=== PATIENT | female | born 1985 | race Caucasian/White ===

== ENCOUNTER 2022-11-14 14:31 | Emergency (ER) | payer OTHER, SELFPAY ==
[2022-11-14 14:58] VITALS: BP 139/69; PULSE 88; RESP 16; TEMP 37.2; O2SAT 97
--- NOTE | 2022-11-14 15:02 | PC.NURSE ---
While entering pt's home medications, RN noted that she had a Px for zithromax, filled at [facility] today. Pt checked on her phone and this is accurate. It appears pt's PCP called in Px, but did not notify pt. Pt decided not to stay since she has a Px waiting for her at the pharmacy. Pt was not seen by CHIEF [employer]ATEGY OFFICER.
== END 2022-11-14 15:06 | disposition left against medical advice (07) ==
LOC: EXPBETH 14:35
PROVIDERS: Emergency Provider Nurse Practitioner
DX: Z53.21 Procedure and treatment not carried out due to patient leaving prior to being seen by health care provider (principal)
CPT/HCPCS: 99199

== ENCOUNTER 2024-06-12 16:24 | Emergency (ER) | payer OTHER, SELFPAY ==
[2024-06-12 16:28] VITALS: BP 135/72; PULSE 82; RESP 18; TEMP 36.3; O2SAT 100
--- NOTE | 2024-06-12 17:35 | ED.GENADULT ---
HPI - General Adult General Chief complaint: Skin/Abscess/Foreign Body Stated complaint: Rash Source: patient Mode of arrival: ambulatory Limitations: no limitations History of Present Illness HPI narrative: Patient presents for evaluation of a pruritic rash to the fingers of both hands for the last week. She started using a new hand lotion prior to the time of symptom onset. She has since stopped using it and itching persists. She tried using hydrocortisone without considerable improvement thereafter. Denies any difficulty breathing or swallowing. Related Data Home Medications Medication Instructions Recorded Confirmed aripiprazole 2 mg tablet 2 mg HS 11/14/22 11/14/22 buspirone 5 mg tablet 5 mg TID 11/14/22 11/14/22 escitalopram oxalate 10 mg tablet 10 mg DAILY 11/14/22 11/14/22 venlafaxine 37.5 mg 37.5 mg PO DAILY 11/14/22 11/14/22 capsule,extended release 24 hr Allergies Allergy/AdvReac Type Severity Reaction Status Date / Time Penicillins Allergy Hives Verified 11/14/22 14:52 Review of Systems Review of Systems: CONSTITUTIONAL: Denies fever, chills, or sweats. EYES: Denies visual changes, redness, or discharge. ENT: Denies rhinorrhea, congestion, sore throat, or otalgia. CARDIOVASCULAR: Denies chest pain, palpitations, or edema. RESPIRATORY: Denies cough or dyspnea. GASTROINTESTINAL: Denies abdominal pain, nausea, vomiting, or diarrhea. GENITOURINARY: Denies dysuria or hematuria. SKIN: Reports pruritic rash to fingers of both hands. MUSCULOSKELETAL: Denies back pain, joint pain, or myalgia. NEUROLOGIC: Denies headache, numbness, dizziness, or weakness. PSYCHIATRIC: Denies anxiety or depression. FOR[facility]LY [facility], [facility] Past Medical History Medical History Anxiety Depression Surgical History Surgical History H/O tubal ligation Family History Family History Mother Family history non-contributory Social History Social History (Updated 06/12/24 @ 17:38 by UBALDO Early, ) Smoking packs per day: 0.5 Smoking cigarettes per day: 10.0 Smoking status: Current every day smoker Tobacco type: cigarettes Substance use: never Gender identity (if verbalized by the patient): Female Spiritual care concerns: No Exam Narrative: GENERAL: Well-appearing, well-nourished, and in no acute distress. HEAD: Normocephalic, atraumatic. EYES: PERRLA and EOMI. ENT: Nares clear, no rhinorrhea or epistaxis. Mucous membranes moist. Oropharynx without tonsillar hypertrophy exudate or other lesions. Bilateral TMs pearly lopse nonbulging NECK: Supple. No adenopathy or masses. No carotid bruits or JVD CHEST: Clear to auscultation. No respiratory distress. No wheezes rales or rhonchi HEART: Regular rate and rhythm. No murmur heard. Normal peripheral pulses. ABDOMEN: Soft, nontender, nondistended, normal active bowel sounds. EXTREMITIES: Normal range of motion. No edema. SKIN: There are several raised blister-like lesions which are about 2mm in size to the medial and lateral aspects of digits on both hands NEURO: No focal deficits. Alert and oriented x3. PSYCH: Normal mood and affect. Course Course Emergency Course: This is a 39-year-old female who presented for evaluation of a pruritic rash to the fingers of both hands. This seems to be related to her new hand lotion. She has since stopped. Through shared decision making opted to proceed with oral steroids as topicals have provided her with much relief. With that said she was using a lower potency steroid then I would prescribe. She will begin medrol dose santa and can use kenalog in the event that symptoms persist. I did advise her that other things can cause a pruritic rash to the hands. I have low clinical suspicion that this is syphilis, but did advise that she follow-up
== END 2024-06-12 17:34 | disposition home or self-care (01) ==
PROVIDERS: Emergency Provider Nurse Practitioner; PCP Family Medicine
DX: L30.9 Dermatitis, unspecified (principal); F17.210 Nicotine dependence, cigarettes, uncomplicated; F41.9 Anxiety disorder, unspecified; F32.A Depression, unspecified
CPT/HCPCS: 99213; G0463

== ENCOUNTER 2025-02-13 11:13 | Emergency (ER) | payer OTHER, SELFPAY ==
[2025-02-13 11:17] VITALS: BP 140/78; PULSE 77; RESP 16; TEMP 36.7; O2SAT 100
--- NOTE | 2025-02-13 11:20 | ED.SKABFB ---
HPI - Skin/Abscess/Foreign Bdy General Chief complaint: Skin/Abscess/Foreign Body Stated complaint: broke out in hives Time Seen by Provider: 02/13/25 11:24 Source: patient, RN notes reviewed and old records reviewed Mode of arrival: ambulatory Limitations: no limitations History of Present Illness HPI narrative: 39 year old female presents to [facility] care with complaints of having red itching spots to her arms, stomach, top of her legs, and also on her neck which started on Thursday. Patient reports that she has been taking Benadryl every 4 hours for the itching and patient has some noted scab areas on forearms from itching. Patient reports no new foods, medications, laundry products. 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 Patient reports no difficulty with her breathing or with swallowing. MD complaint: rash Onset (ago): day(s) (4 days) Location: generalized Severity: moderate Treatments prior to arrival: Benadryl Related Data Allergies Allergy/AdvReac Type Severity Reaction Status Date / Time Penicillins Allergy Hives Verified 02/13/25 11:20 Review of Systems Review of Systems: CONSTITUTIONAL: Denies fever, chills, or sweats. CARDIOVASCULAR: Denies chest pain, palpitations, or edema. RESPIRATORY: Denies cough or dyspnea. SKIN: Reports small red raised itchy rash on her arms, stomach tops of thighs, and neck which started on Thursday with no changes in breathing or any difficulty with swallowing noted. MUSCULOSKELETAL: Denies joint pain or myalgia. NEUROLOGIC: Denies headache, numbness, or weakness. All systems reviewed & are unremarkable except as noted in HPI and below PMFSH Past Medical History Medical History Depression Anxiety Surgical History Surgical History H/O tubal ligation Family History Family History Mother Family history non-contributory Social History Social History (Updated 02/14/25 @ 19:36 by Pam Pimentel NP) Smoking packs per day: 1.5 Smoking cigarettes per day: 30.0 Smoking status: Current every day smoker Tobacco type: cigarettes Alcohol intake: never Substance use: never Gender identity (if verbalized by the patient): Female Spiritual care concerns: No Comments At time of signature, agree with nursing past medical, surgical, social and family history. There is no relevant family history pertinent to the presenting complaint Exam Narrative: GENERAL: Well-appearing, well-nourished, and in no acute distress. HEAD: Normocephalic, atraumatic. EYES: PERRLA, conjunctivae clear, and EOMI. ENT: Mucous membranes moist. Oropharynx without edema, erythema or lesions. NECK: Supple. No lymphadenopathy CHEST: Clear to auscultation. No respiratory distress. no cough not SAO2 100% on room air HEART: Regular rate and rhythm. SKIN: Warm, dry.? Patches of small red raised rash noted on forearms, abdomen, tops of thighs and on neck which is itchy, some scabs noted on forearms, no pustule or vesicle formation. NEURO:? Alert and oriented x3. PSYCH: Normal mood and affect Course Course Emergency Course: Patient is aware of diagnosis, understands and agrees to treatment plan.? Anticipatory guidance given.? Patient agrees to follow-up as directed and is aware of reasons to seek care at the emergency department. Portions of this record may have been created with voice recognition software Level of Care: Express Care Visit Vital Signs Vital signs: Vital Signs Temperature 36.7 C 02/13/25 11:17 Pulse Rate 77 02/13/25 11:17 Respiratory Rate 16 02/13/25 11:17 Blood Pressure 140/78 02/13/25 11:17 Pulse Oximetry 100 02/13/25 11:17 Oxygen Delivery Room Air 02/13/25 11:17 Temperature 36.7 C 02/13/25 11:17 Pulse Rate 77 02/13/25 11:17 Respiratory Rate 16 02/13/25 11:17 Blood Pressure 140/78 02/13/25 11:17 Pulse Oximetry 100 02/13/25 11:17 Oxygen Delivery Room Air 02/13/25 11:17 Reviewed MDM - Skin/Abscess/Foreign Bdy MDM Narrative Medical decision making narrative: Does not appear at this time to be erythema multiforme, bullous, SJS, TEN; no evidence at this time to suggest RMSF, endocarditis or Lyme disease; patient looks well, nontoxic and is tolerating oral intake; no neurologic signs or symptoms; no headache, photophobia or neck pain; afebrile; appropriate for initial outpatient treatment; discussed the importance of follow-up, patient agrees; question, viral exanthema, contact dermatitis, allergic dermatitis, eczema, urticaria. No soft palate or uvula edema, no tongue, lip edema or other mucosal involvement, no respiratory compromise, no stridor, no wheezing, no wheezing, no history of syncope, no hypotension, no nausea, vomiting, or diarrhea.? Instructed patient to go to nearest ER immediately for any worsening symptoms including but not limited to: fever, spreading rash, pain, sore throat, headache, dizziness, chest pain, trouble breathing, or any symptoms concerning to the patient. Differential Diagnosis Differential diagnosis: Likely urticaria, cellulitis, eczema, contact dermatitis and other (pruritic rash) Medical Records Attestation: I reviewed the patient's medical records. Critical Care Time Critical Care Time Critical Care Time: No Discharge Plan Discharge Clinical Impression: Contact dermatitis Qualifiers: Contact dermatitis type: unspecified Contact dermatitis trigger: unspecified trigger Qualified Code(s): L25.9 - Unspecified contact dermatitis, unspecified cause Patient Disposition: Home, Self-Care Condition: Stable Instructions: Antibiotic Form, Contact Dermatitis (ED) Additional Instructions: Apply triamcinolone ointment to rash, never use this on the face watch for any infection--redness, swelling, drainage Tylenol or Ibuprofen for any fever or pain Patient to take daily Zyrtec daily for 10 days, Patient to take Pepcid daily for 10 days follow up with PCP in 7-10 days for a wound check recheck if develop fever, chills, increasing symptom Go to the ER if your symptoms become worse of if ANY new symptoms develop Prednisone taper take as prescribed Benadryl every 6 hours for itching If your symptoms persist, change or worsen significantly before you can contact your personal physician then please, without delay, go to the emergency department for further evaluation. Follow-up with PCP in 7-10 days or sooner if needed Follow up with PCP soon in regards to your blood pressure which is elevated above threshold for referral. Blood pressure above 120/80 may indicate pre-hypertension. 140/78 Patient Language: Estonian Prescriptions: New prednisone 10 mg tablet 10 mg PO DIRECTED Qty: 21 0RF Rx Instructions: see taper instructions 6 tabs day 1, 5 tabs day 2, 4 tabs day 3, 3 tabs day 4, 2 tabs day 5, 1 tab day 6 famotidine [Pepcid] 20 mg tablet 20 mg PO DAILY Qty: 10 0RF Follow-up/Referrals: PHYSICIAN NOT ON STAFF,NONSTAFF [Primary Care Provider] - Time of Disposition: 11:41 Quality [place] Coma Scale Eyes: Open Verbal: Oriented and Alert Motor: Follows Commands [place] Coma Total Score: 15
--- OUTSIDE RECORDS SUMMARY | 2025-02-13 13:18 | XMS_ITS | Referral Summary ---
Author Organization [facility] Address [address] [place] [address] Care Team Providers Care Gizzard Peeler Name Role Phone Antony Jean-Baptiste MD Primary Care Provider Encounters Date Type Department Care Team Description 01/05/2025 12:54 AM TECHNICAL WRITING LEAD/MGR - 01/05/2025 4:58 AM TECHNICAL WRITING LEAD/MGR Emergency [facility] Emergency Department [address] [place] [address] Letha Templeton MD Acute bilateral thoracic back pain (Primary Dx) Discharge Disposition: Discharge to home or self care from Last 3 Months Allergies Active Allergy Reactions Criticality Noted Date Comments Latex Rash Medium 01/05/2025 Reaction: Rash, Penicillins Rash,Hives,Shortness of breath High 12/27/2009 Reaction: Rash, Medications traMADoL (ULTRAM) 50 mg tablet Take 1 tablet (50 mg total) by mouth every 4 (four) hours as needed for pain 20 tablet 10/15/2022 Active ibuprofen (ADVIL,MOTRIN) 600 mg tablet Take 1 tablet (600 mg total) by mouth every 6 (six) hours as needed for pain for up to 30 doses 30 tablet 01/05/2025 Active HYDROcodone-acet aminophen (NORCO) 5-325 mg per tabletIndication s:Pain Take 1 tablet by mouth every 6 (six) hours as needed for pain for up to 10 doses 10 tablet 01/05/2025 Active cyclobenzaprine (FLEXERIL) 10 mg tablet Take 1 tablet (10 mg total) by mouth 2 (two) times a day as needed for muscle spasms 20 tablet 01/05/2025 Active Active Problems Problem Noted Date Diagnosed Date Methamphetamine abuse 03/07/2019 Overview (10/15/2022): Note: Clean 02/01/2019. 5 years of snorting and smoking. Adjustment disorder with anxiety 10/06/2017 Overview (10/15/2022): Note: Unchanged High-risk 06/24/2012 Immunizations Immunization Administration Dates Next Due Tdap 2024 Social History Tobacco Use Types Packs/Day Years Used Date Smoking Tobacco: Never Assessed Personal Safety Answer Date Recorded Have you ever been in or are you currently in a harmful physical or emotional relationship or is someone making you feel afraid or unsafe? Denies 01/05/2025 Comments No Sex and Gender Information Value Date Recorded Sex Assigned at Not on file Legal Sex Female 6:06 PM TECHNICAL WRITING LEAD/MGR Gender Identity Not on file Sexual Orientation Not on file Last Filed Vital Signs Vital Sign Reading Time Taken Comments Blood Pressure 114/74 01/05/2025 4:45 AM TECHNICAL WRITING LEAD/MGR Pulse 65 01/05/2025 3:25 AM TECHNICAL WRITING LEAD/MGR Temperature 37.1 C (98.8 F) 01/05/2025 12:52 AM TECHNICAL WRITING LEAD/MGR Respiratory Rate 18 01/05/2025 12:52 AM TECHNICAL WRITING LEAD/MGR Oxygen Saturation 95% 01/05/2025 3:25 AM TECHNICAL WRITING LEAD/MGR Inhaled Oxygen Concentration - - Weight 81.6 kg (180 lb) 01/05/2025 12:49 AM TECHNICAL WRITING LEAD/MGR Height 158.8 cm (5' 2.5 ) 01/05/2025 12:49 AM CS T Body Mass Index 32.4 01/05/2025 12:49 AM TECHNICAL WRITING LEAD/MGR Plan of Treatment Not on file Procedures Procedure Name Priority Date/Time Associated Diagnosis Comments CT ABDOMEN PELVIS WO CONTRAST ED 01/05/2025 3:34 AM TECHNICAL WRITING LEAD/MGR EGFR STAT 01/05/2025 2:26 AM TECHNICAL WRITING LEAD/MGR DIFFERENTIAL AUTO STAT 01/05/2025 2:2 6 AM TECHNICAL WRITING LEAD/MGR HCG, BLOOD, QUANTITATIVE STAT 01/05/2025 2:26 AM TECHNICAL WRITING LEAD/MGR COMPREHENSIVE METABOLIC PANEL STAT 01/05/2025 2:26 AM TECHNICAL WRITING LEAD/MGR CBC WITH AUTO DIFFERENTIAL STAT 01/05/2025 2:26 AM TECHNICAL WRITING LEAD/MGR URINALYSIS AND REFLEX TO MICROSCOPIC AND CULTURE STAT 01/05/2025 2:26 AM TECHNICAL WRITING LEAD/MGR from Last 3 Months Results * CT Abdomen Pelvis WO Contrast (01/05/2025 3:34 AM TECHNICAL WRITING LEAD/MGR) Anatomical Region Laterality Modality Body N/A Computed Tomogra phy 01/05/2025 3:38 AM TECHNICAL WRITING LEAD/MGR Narrative 01/05/2025 3:42 AM TECHNICAL WRITING LEAD/MGR EXAM DESCRIPTION: CT ABDOMEN PELVIS WO CONTRAST REASON FOR STUDY: Abdominal/flank pain, stone suspected Patient presents with bilateral flank pain radiating to abdomen x 2 weeks. Denies urinary symptoms. TECHNIQUE: CT scan of the abdomen and pelvis performed without intravenous and without oral contrast using helical scanning technique. Reconstructed coronal and sagittal MPR images reviewed. All images stored on PACS. Automated exposure control was used as a dose optimization technique for this examination. COMPARISON: None FINDINGS: LOWER CHEST: Lung bases are clear. Heart size normal. No effusion. LIVER/BILIARY: Liver unremarkable. Biliary tree normal in caliber. GALLBLADDER: Normal. SPLEEN: Normal. PANCREAS: Mild atrophy. ADRENAL GLANDS: Normal. KIDNEYS/URINARY TRACT: Unremarkable. GI: Stomach and small bowel appear normal. Scattered noninflamed colonic diverticula. Normal appendix. OTHER ABDOMINAL/PELVIS: Major vascular structures are normal in caliber. No enlarged lymph node or free fluid. MSK: None. BODY WALL: Normal. IMPRESSION: No urinary tract obstruction/inflammation or other acute abnormality identified. THIS IS AN ELECTRONICALLY VERIFIED FINAL REPORT 01/05/2025 3:42 AM - Electronically signed by John Arciniega M.D. AR: NATE Report ID: [id number] Reading Location: [id number] Procedure Note John Arciniega MD - 01/05/2025 EXAM DESCRIPTION: CT ABDOMEN PELVIS WO CONTRAST REASON FOR STUDY: Abdominal/flank pain, stone suspected Patient presents with bilateral flank pain radiating to abdomen x 2 weeks. Denies urinary symptoms. TECHNIQUE: CT scan of the abdomen and pelvis performed without intravenousand without oral contrast using helical scanning technique. Reconstructed coronal and sagittal MPR images reviewed. All images stored on PACS.Automated exposure control was used as a dose optimization technique for this examination. COMPARISON: None FINDINGS: LOWER CHEST: Lung bases are clear. Heart size normal. No effusion. LIVER/BILIARY: Liver unremarkable. Biliary tree normal in caliber. GALLBLADDER: Normal. SPLEEN: Normal. PANCREAS: Mild atrophy. ADRENAL GLANDS: Normal. KIDNEYS/URINARY TRACT: Unremarkable. GI: Stomach and small bowel appear normal. Scattered noninflamed colonic diverticula. Normal appendix. OTHER ABDOMINAL/PELVIS: Major vascular structures are normal in caliber.No enlarged lymph node or free fluid. MSK: None. BODY WALL: Normal. IMPRESSION: No urinary tract obstruction/inflammation or other acute abnormality identified. THIS IS AN ELECTRONICALLY VERIFIED FINAL REPORT 01/05/2025 3:42 AM - Electronically signed by John Arciniega M.D. AR: AR Report ID: [id number] Reading Location: [place] [address] Letha Templeton MD IM CT PROCEDURES Final R esult * eGFR (01/05/2025 2:26 AM TECHNICAL WRITING LEAD/MGR) eGFR >90 >=60 mL/min/1. 73 m2 Comment: Interpretive Data Reference Interval Normal >/= 90 mL/min/1.73m2 Mildly decreased* 60 - 89 mL/min/1.73m2 Mildly to moderately decreased 45 - 59 mL/min/1.73m2 Moderately to severely decreased 30 - 44 mL/min/1.73m2 Severely decreased 15 - 29 mL/min/1.73m2 Kidney Failure < 15 mL/min/1.73m2 *Relative to young adult level Estimated glomerular filtration rate is determined by the 2020 CKD-EPI equation recommended by the National Kid[employer] (A Unifying Approach to GFR Estimation: Recommendations of the NKF-ASK Task Force on Reassessing the Inclusion of Race in Diagnosing Kidney Disease, JASN 2020). The CKD-EPI equation should not be used for patients with unstable renal function and has not been validated in children and those over 70. Current interpretive data was last reviewed 2021. Blood 01/05/2025 2:26 AM TECHNICAL WRITING LEAD/MGR 01/05/2025 2:58 AM TECHNICAL WRITING LEAD/MGR us Letha Templeton MD LAB BLOOD ORDERABLES Korin marlene Result [facility] ([facility]) 1 [facility] Department [place] [address] * Differential, auto (01/05/2025 2:26 AM TECHNICAL WRITING LEAD/MGR) Neutrophil abs 4.2 1.5 - 6.5 K/cumm Imm gran abs 0.0 0.0 - 0.1 K/cumm [facility] ([place]) Lymphocyte abs 2.4 0.8 - 3.3 K/cumm [facility] ([place]) Monocyte abs 0.5 0.2 - 0.8 K/cumm [facility] ([place]) Eosinophil abs 0.3 0.0 - 0.5 K/cumm [facility] ([place]) Basophil abs 0.1 0.0 - 0.1 K/cumm [facility] ([place]) Neutrophil pct 55.5 % [facility] ([place]) Comment: Interpretive Data Percent cell count reference ranges are not reported, since discordance with absolute values may lead to misinterpretation of CBC data. Current Interpretive Data was last revised on 2018. Imm gran pct 0.4 % [facility] ([place]) Comment: Interpretive Data Percent cell count reference ranges are not reported, since discordance with absolute values may lead to misinterpretation of CBC data. Current Interpretive Data was last revised on 2018. Lymphocyte pct 32.6 % [facility] ([place]) Comment: Interpretive Data Percent cell count reference ranges are not reported, since discordance with absolute values may lead to misinterpretation of CBC data. Current Interpretive Data was last revised on 2018. Monocyte pct 6.3 % [facility] ([place]) Comment: Interpretive Data Percent cell count reference ranges are not reported, since discordance with absolute values may lead to misinterpretation of CBC data. Current Interpretive Data was last revised on 2018. Eosinophil pct 4.5 % [facility] ([place]) Comment: Interpretive Data Percent cell count reference ranges are not reported, since discordance with absolute values may lead to misinterpretation of CBC data. Current Interpretive Data was last revised on 2018. Basophil pct 0.7 % [facility] ([place]) Comment: Interpretive Data Percent cell count reference ranges are not reported, since discordance with absolute values may lead to misinterpretation of CBC data. Current Interpretive Data was last revised on 2018. Blood 01/05/2025 2:26 AM TECHNICAL WRITING LEAD/MGR 01/05/2025 2:38 AM TECHNICAL WRITING LEAD/MGR us Letha Templeton MD LAB BLOOD ORDERABLES Korin rosario Result [facility] ([place]) 1 [facility] Department [place] [address] * Urinalysis reflex to microscopic and culture Urine (01/05/2025 2:26 AM TECHNICAL WRITING LEAD/MGR) Color, ur Straw Yellow Clarity, ur Clear Clear [facility] ([place]) Specific gravity, ur 1.009 1.003 - 1.030 [facility] ([place]) pH, urine 7.0 [facility] ([place]) Comment: Interpretive Data U rine pH is affected by diet, medications, systemic acid-base disturbances, and renal tubular function. pH may affect urinary stone formation. For example, urine pH below 6.0 may help reduce the tendency for calcium phosphate stones and pH greater than 6.0 may reduce the tendency for uric acid stone formation. Source: [facility] [employer] Current Interpretive Data was last revised on 2017 Protein, ur ql Negative Negative [facility] ([place]) Glucose, ur ql Negative Negative [facility] ([place]) Ketones, ur Negative Negative [facility] ([place]) Bilirubin, ur Negative Negative [facility] ([place]) Blood, ur Negative Negative [facility] ([place]) Urobilinogen, ur <2.0 <2.0 mg/dL [facility] ([place]) Nitrite, ur Negative Negative [facility] ([place]) Leukocyte esterase, ur Negative Negative [facility] ([place]) UA reflex comment Reflex conditions for microscopic UA and culture not met. [facility] ([place]) Urine 01/05/2025 2:26 AM TECHNICAL WRITING LEAD/MGR 01/05/2025 2:38 AM TECHNICAL WRITING LEAD/MGR Letha Templeton MD LAB MICROBIOLOGY - GENERA L ORDERABLES Final Result [facility] ([place]) 1 [facility] Department [place] [address] * (ABNORMAL) CBC with auto differential (01/05/2025 2:26 AM TECHNICAL WRITING LEAD/MGR) WBC 7.5 3.8 - 9.9 K/cumm Hgb 12.5 11.9 - 15.5 g/dL [facility] ([place]) Hct 35.1(L) 35.6 - 45.5 % [facility] ([place]) Plt 271 150 - 400 K/cumm [facility] ([place]) MPV 10.5 9.1 - 12.3 fL [facility] ([place]) RBC 3.96 3.90 - 5.20 M/cumm [facility] ([place]) MCV 88.6 81.3 - 96.4 fL [facility] ([place]) MCH 31.6 27.1 - 33.3 pg [facility] ([place]) MCHC 35.6 32.3 - 35.7 g/dL [facility] ([place]) RDW CV 11.6 11.1 - 14.9 % [facility] ([place]) RDW SD 37.4 35.7 - 48.1 fL [facility] ([place]) NRBC abs 0.02(H) 0.00 - 0.01 K/cumm [facility] ([place]) Blood 01/05/2025 2:26 AM TECHNICAL WRITING LEAD/MGR 01/05/2025 2:38 AM TECHNICAL WRITING LEAD/MGR Letha Templeton MD LAB BLOOD ORDERABLES Korin l Result Performing Organization Address [facility] Co de Phone Number [facility] ([place]) 1 [facility] [place] [address] * hCG, blood, quantitative (01/05/2025 2:26 AM TECHNICAL WRITING LEAD/MGR) hCG, quant <5.0 0.0 - 5.0 IUnits/L Comment: Interpretive Data Male: < 5 IU/L Non- premenopausal Female: <5 IU/L The Jose hCG Beta Quant assay procedure was used. Results from different manufacturers or methods may not be comparable. Serial testing should be performed using the same method. Interpretive Data was last revised on 2023 Blood 01/05/2025 2:26 AM TECHNICAL WRITING LEAD/MGR 01/05/2025 2:38 AM TECHNICAL WRITING LEAD/MGR Letha Templeton MD LAB BLOOD ORDERABLES Korin l Result Performing Organization Address [facility] de Phone Number [facility] ([place]) 1 [facility] Department [place] [employer] [place] [address] * Comprehensive metabolic panel (01/05/2025 2:26 AM TECHNICAL WRITING LEAD/MGR) Pathologist [facility] Sodium 137 135 - 145 mmol/L Potassium, pl 4.5 3.3 - 4.9 mmol/L [facility] ([facility]) Comment:Moderately Hemolyzed Specimen. Results may be affected. Chloride 103 97 - 110 mmol/L [facility] ([facility]) CO2 23 22 - 32 mmol/L [facility] ([place]) Anion gap 11 2 - 15 mmol/L [facility] ([place]) BUN 9 6 - 25 mg/dL [facility] ([place]) Creatinine 0.77 0.60 - 1.10 mg/dL [facility] ([place]) Glucose 92 70 - 199 mg/dL [facility] ([place]) Comment: Interpretive Data Fasting glucose >/= 126 mg/dl is diagnostic for diabetes. Fasting is defined as no caloric intake for at least 8 hours. Fasting glucose between 100 mg/dl to 125 mg/dl is diagnostic of prediabetes. In a patient with classic symptoms of hyperglycemia or hyperglycemic crisis, a random glucose >/= 200 mg/dl is diagnostic for diabetes. In the absence of unequivocal hyperglycemia, results should be confirmed by repeat testing. The classification and Diagnosis of Diabetes Diabetes Care 202; 46: S19-S40. Current interpretive data was last revised 2022. Calcium 9.1 8.5 - 10.3 mg/dL [facility] ([place]) Bilirubin, total 0.3 0.1 - 1.2 mg/dL [facility] ([place]) Protein, pl 6.5 6.5 - 8.5 g/dL [facility] ([place]) Albumin 4.2 3.5 - 5.0 g/dL [facility] ([place]) Alk phos 56 40 - 130 Units/L [facility] ([place]) ALT 11 7 - 45 Units/L [facility] ([place]) Comment: Hemolysis present. Results may be affected. Moderately Hemolyzed Specimen AST 25 10 - 45 Units/L [facility] ([place]) Comment: Hemolysis present. Results may be affected. Moderately Hemolyzed Specimen Blood 01/05/2025 2:26 AM TECHNICAL WRITING LEAD/MGR 01/05/2025 2:38 AM TECHNICAL WRITING LEAD/MGR us Letha Templeton MD LAB BLOOD ORDERABLES Korin rosario Result [facility] ([place]) 1 [facility] Department of Laboratories [place] [phone] from Last 3 Months Insurance [facility] [employer] GENERIC Care Teams Gizzard Peeler Relationship Specialty Start Date End Date Antony Jean-Baptiste MD [address] [place] [phone] PCP - General Family Medicine 10/15/22
--- OUTSIDE RECORDS SUMMARY | 2025-02-13 13:18 | XMS_ITS | Clinical Summary ---
Author Organization [facility] Address [address] [place] [address] Care Team Providers Care Community Planning Technician Name Role Phone Antony Jean-Baptiste MD Primary Care Provider [phone] Allergies Active Allergy Reactions Criticality Noted Date [...] 10/06/2017 Overview (10/15/2022): Note: Unchanged High-risk 06/24/2012 Encounters Date Type Department Care Team Description 01/05/2025 12:54 AM CLAMP FORKLIFT OPERATOR - 01/05/2025 4:58 AM CLAMP FORKLIFT OPERATOR Emergency [facility] Emergency Department [address] [place] [address] Letha Templeton MD Acute bilateral thoracic back pain (Primary Dx) Discharge Disposition: Discharge to home or self care from Last 3 Months Immunizations Immunization Administration Dates Next Due Tdap [...] on file Legal Sex Female 6:06 PM CLAMP FORKLIFT OPERATOR Gender Identity Not on file Sexual Orientation Not on file Obstetrics History Last Filed Vital Signs Vital Sign Reading Time Taken Comments Blood Pressure 114/74 01/05/2025 4:45 AM CLAMP FORKLIFT OPERATOR Pulse 65 01/05/2025 3:25 AM CLAMP FORKLIFT OPERATOR Temperature 37.1 C (98.8 F) 01/05/2025 12:52 AM CLAMP FORKLIFT OPERATOR Respiratory Rate 18 01/05/2025 12:52 AM CLAMP FORKLIFT OPERATOR Oxygen Saturation 95% 01/05/2025 3:25 AM CLAMP FORKLIFT OPERATOR Inhaled Oxygen Concentration - - Weight 81.6 kg (180 lb) 01/05/2025 12:49 AM CLAMP FORKLIFT OPERATOR Height 158.8 cm (5' 2.5 ) 01/05/2025 12:49 AM CS T Body Mass Index 32.4 01/05/2025 12:49 AM CLAMP FORKLIFT OPERATOR Plan of Treatment Health Maintenance Due Date Last Done Comments Cervical Cancer Screening 1987 Depression Screening 1987 Hepatitis C Screening 1987 Varicella Vaccines (1 of 2 - 13+ 2-dose series) 2000 Regular Well Visit/Exam 18-64 2005 Influenza Vaccine (#1) 2024 9, 08/16/2015, 08/23/2014 DTaP/Tdap/Td Vaccine (7 - Td or Tdap) 2034 2024, 10/21/2012, 08/09/1992, Additional history exists Hepatitis B Screening Completed 01/11/1998, 998 HPV Vaccines Aged Out No longer eligi ble based on patient's age to complete this topic Pneumococcal vaccine <65 Aged Out No longer eligible based on patient's age to complete this topic Procedures Procedure Name Priority Date/Time Associated Diagnosis Comments CT ABDOMEN PELVIS WO CONTRAST ED 01/05/2025 3:34 AM CLAMP FORKLIFT OPERATOR EGFR STAT 01/05/2025 2:26 AM CLAMP FORKLIFT OPERATOR DIFFERENTIAL AUTO STAT 01/05/2025 2:2 6 AM CLAMP FORKLIFT OPERATOR HCG, BLOOD, QUANTITATIVE STAT 01/05/2025 2:26 AM CLAMP FORKLIFT OPERATOR COMPREHENSIVE METABOLIC PANEL STAT 01/05/2025 2:26 AM CLAMP FORKLIFT OPERATOR CBC WITH AUTO DIFFERENTIAL STAT 01/05/2025 2:26 AM CLAMP FORKLIFT OPERATOR URINALYSIS AND REFLEX TO MICROSCOPIC AND CULTURE STAT 01/05/2025 2:26 AM CLAMP FORKLIFT OPERATOR from Last 3 Months Results * CT Abdomen Pelvis WO Contrast (01/05/2025 3:34 AM CLAMP FORKLIFT OPERATOR) Anatomical Region Laterality Modality Body N/A Computed Tomogra phy 01/05/2025 3:38 AM CLAMP FORKLIFT OPERATOR Narrative 01/05/2025 3:42 AM CLAMP FORKLIFT OPERATOR EXAM DESCRIPTION: CT ABDOMEN PELVIS WO CONTRAST [...] John Arciniega M.D. AR: NATE Report ID: [id number] Reading Location: [id number] Procedure Note John Arciniega MD - 01/05/2025 [...] John Arciniega M.D. AR: NATE Report ID: [id number] Reading Location: [id number] Letha Templeton MD IM CT PROCEDURES Final R esult * eGFR (01/05/2025 2:26 AM CLAMP FORKLIFT OPERATOR) eGFR >90 >=60 mL/min/1. 73 m2 Comment: [...] last reviewed 2021. Blood 01/05/2025 2:26 AM CLAMP FORKLIFT OPERATOR 01/05/2025 2:58 AM CLAMP FORKLIFT OPERATOR us Letha Templeton MD LAB BLOOD ORDERABLES Korin rosario Result [facility] [address] [facility] Department [place] [address] * Differential, auto (01/05/2025 2:26 AM CLAMP FORKLIFT OPERATOR) Neutrophil abs 4.2 1.5 - 6.5 K/cumm Imm gran abs 0.0 0.0 - 0.1 K/cumm [facility] Lymphocyte abs 2.4 0.8 - 3.3 K/cumm [facility] Monocyte abs 0.5 0.2 - 0.8 K/cumm [facility] Eosinophil abs 0.3 0.0 - 0.5 K/cumm [facility] Basophil abs 0.1 0.0 - 0.1 K/cumm [facility] Neutrophil pct 55.5 % [facility] Comment: Interpretive Data Percent cell count reference ranges are not reported, since discordance with absolute values may lead to misinterpretation of CBC data. Current Interpretive Data was last revised on 2018. Imm gran pct 0.4 % [facility] Comment: Interpretive Data Percent cell [...] revised on 2018. Monocyte pct 6.3 % [facility] Comment: Interpretive Data Percent cell count [...] revised on 2018. Basophil pct 0.7 % [facility] Comment: Interpretive Data Percent cell count reference ranges are not reported, since discordance with absolute values may lead to misinterpretation of CBC data. Current Interpretive Data was last revised on 2018. Blood 01/05/2025 2:26 AM CLAMP FORKLIFT OPERATOR 01/05/2025 2:38 AM CLAMP FORKLIFT OPERATOR us Letha Templeton MD LAB BLOOD ORDERABLES Korin rosario Result [facility] [address] [facility] [place] [address] * Urinalysis reflex to microscopic and culture Urine (01/05/2025 2:26 AM CLAMP FORKLIFT OPERATOR) Color, ur Straw Yellow Clarity, ur Clear Clear [facility] Specific gravity, ur 1.009 1.003 - 1.030 [...] tendency for uric acid stone formation. Source: [facility] [employer] Current Interpretive Data was last revised on 2017 Protein, ur ql Negative Negative [facility] Glucose, ur ql Negative Negative [facility] Ketones, ur Negative Negative [facility] Bilirubin, ur Negative Negative [facility] Blood, ur Negative Negative [facility] Urobilinogen, ur <2.0 <2.0 mg/dL [facility] Nitrite, ur Negative Negative [facility] Leukocyte esterase, ur Negative Negative [facility] UA reflex comment Reflex conditions for microscopic UA and culture not met. [facility] Urine 01/05/2025 2:26 AM CLAMP FORKLIFT OPERATOR 01/05/2025 2:38 AM CLAMP FORKLIFT OPERATOR us Letha Templeton MD LAB MICROBIOLOGY - GENERA L ORDERABLES Final Result [facility] [address] [facility] Department [place] [address] * (ABNORMAL) CBC with auto differential (01/05/2025 2:26 AM CLAMP FORKLIFT OPERATOR) WBC 7.5 3.8 - 9.9 K/cumm Hgb 12.5 11.9 - 15.5 g/dL [facility] Hct 35.1(L) 35.6 - 45.5 % [facility] Plt 271 150 - 400 K/cumm [facility] MPV 10.5 9.1 - 12.3 fL [facility] RBC 3.96 3.90 - 5.20 M/cumm [facility] MCV 88.6 81.3 - 96.4 fL [facility] MCH 31.6 27.1 - 33.3 pg [facility] MCHC 35.6 32.3 - 35.7 g/dL [facility] RDW CV 11.6 11.1 - 14.9 % [facility] RDW SD 37.4 35.7 - 48.1 fL [facility] NRBC abs 0.02(H) 0.00 - 0.01 K/cumm [facility] Blood 01/05/2025 2:26 AM CLAMP FORKLIFT OPERATOR 01/05/2025 2:38 AM CLAMP FORKLIFT OPERATOR Letha Templeton MD LAB BLOOD ORDERABLES Korin l Result Performing Organization Address [facility] Co de Phone Number [facility] [address] [place] [address] [place] [address] * hCG, blood, quantitative (01/05/2025 2:26 AM CLAMP FORKLIFT OPERATOR) hCG, quant <5.0 0.0 - 5.0 IUnits/L Comment: Interpretive Data Male: < 5 IU/L Non- premenopausal Female: <5 IU/L The Jose hCG Beta Quant assay procedure was used. Results from different manufacturers or methods may not be comparable. Serial testing should be performed using the same method. Interpretive Data was last revised on 2023 Blood 01/05/2025 2:26 AM CLAMP FORKLIFT OPERATOR 01/05/2025 2:38 AM CLAMP FORKLIFT OPERATOR Letha Templeton MD LAB BLOOD ORDERABLES Korin l Result Performing Organization Address [facility] Co de Phone Number [facility] [address] [facility] [place] [address] * Comprehensive metabolic panel (01/05/2025 2:26 AM CLAMP FORKLIFT OPERATOR) Sodium 137 135 - 145 mmol/L Potassium, pl 4.5 3.3 - 4.9 mmol/L [facility] Comment:Moderately Hemolyzed Specimen. Results may be affected. Chloride 103 97 - 110 mmol/L [facility] CO2 23 22 - 32 mmol/L [facility] Anion gap 11 2 - 15 mmol/L [facility] BUN 9 6 - 25 mg/dL [facility] Creatinine 0.77 0.60 - 1.10 mg/dL [facility] Glucose 92 70 - 199 mg/dL [facility] Comment: Interpretive Data Fasting glucose >/= [...] classification and Diagnosis of Diabetes Diabetes Care 2021; 46: S19-S40. Current interpretive data was last [...] Moderately Hemolyzed Specimen Blood 01/05/2025 2:26 AM CLAMP FORKLIFT OPERATOR 01/05/2025 2:38 AM CLAMP FORKLIFT OPERATOR us Letha Templeton MD LAB BLOOD ORDERABLES Korin l Result [facility] [address] [facility] [place] [address] from Last 3 Months Insurance [facility] [employer] COMPENSATION GENERIC Care Teams Community Planning Technician Relationship Specialty Start Date End Date Antony Jean-Baptiste MD [address] [place] [address] PCP - General Family Medicine 10/15/22
--- OUTSIDE RECORDS SUMMARY | 2025-02-13 13:18 | XMS_ITS | Clinical Summary ---
Author Organization [facility] Address [address] [place] [address] Phone Care Team Providers Care Music Rehabilitation Therapist Name Role Phone MILLI CHAPA MD Primary Care Provider [phone] Reason for Visit and Chief Complaint TELEHEALTH Problems Includes: Problems addressed during this encounter and other active Problems Current Visit Onset Date Resolved Date Provider Conditio n Status Alcohol Use 02/04/2010 Unknown PARUL LORENZANA MD Resolve d Last Documented On 09/09/2010 2:25PM ; [facility] Note: was Closed. Tobacco Use 02/04/2010 Unknown PARUL LORENZANA MD Resolve d Last Documented On 09/09/2010 2:25PM ; [facility] Note: was Closed. 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 5 years of snorti ng and smoking. Adjustment Disorder with Anxiety 10/06/2017 MILLI CHAPA MD Active Last Documented On 10/06/2017 12:34AM ; [facility] Note: Unchanged Plan of Treatment - Return to the clinic if condition worsens or new symptoms arise - Last Documented On 04/28/2023 12:10PM ; [facility] - Follow-up visit 4-6 mo - Last Documented On 04/28/2023 12:10PM ; [facility] Continue current meds. Keep up the exercise/moving. Get fasting labs prior to next appt. Call sooner if needed. - Last Documented On 04/28/2023 12:10PM ; [facility] Pending Tests Order Diagnosis Results Due Ordering [facility] Lab THYROID PANEL (TSH & FREE T4) 10/25/23 PATRICIO CAGLE- C Last Documented On 4 3:52PM ; [facility] Lab VITAMIN D 25-HYDROXY 10/25/23 KRYSTLE QUIROZ PA-C Last Documented On 4 3:52PM ; [facility] Lab LIPID PANEL 10/25/23 PATRICIO WYNN INS PA-C Last Documented On 4 3:52PM ; [facility] Lab CMP 10/25/23 PATRICIO GARCIA PA-C Last Documented On 4 3:52PM ; [facility] Lab CBC WITH DIFF 10/25/23 PATRICIO BROWNING PA-C Last Documented On 4 3:52PM ; [facility] Instructions to patient Intervention and counseling on cessation of tobacco use : Patient recieved smoking cessation handout. Stop vaping Last Documented On 3 12:10PM ; [facility] Assessments Includes: Assessments from this encounter Findings - [E78.49 - Other hyperlipidemia] Hyperlipidemia - Last Documented On 04/28/2023 12:10PM ; [facility] - [E67.3 - Hypervitaminosis D] Hypervitaminosis D - Last Documented On 04/28/2023 12:10PM ; [facility] - [E66.9 - Obesity, unspecified] Obesity - Last Documented On 04/28/2023 12:10PM ; [facility] - [F32.A - Depression, unspecified] Depression - Last Documented On 04/28/2023 12:10PM ; [facility] - [F41.9 - Anxiety disorder, unspecified] Anxiety disorder NOS - Last Documented On 04/28/2023 12:10PM ; [facility] Instructions Includes: Instructions from this encounter Instructions to patient Intervention and counseling on cessation of tobacco use : Patient recieved smoking cessation handout. Stop vaping Last Documented On 12:10PM ; [facility] Medical Equipment - Implanted Devices Includes: Current Devices No Medical Equipment Recorded Medications Includes: Medications discussed during this encounter and other current Medications Discontinued / Stopped on this date PATRICIO QUIROZ PA-C on 11/14/2022 Zithromax Z-Juma 250 MG Oral Tablet Provid er: PATRICIO QUIROZ PA-C Diagnosis: Last Documented On 04/28/2023 11:06AM By DORIS ARMENDARIZ Moose ; [facility] Current Medications (continue as prescribed) Daily Multiple Vitamins Oral Tablet 01/23/2021 Provi leonid: Diagnosis: Last Documented On 01/23/2021 10:38AM By María Nicole Moose ; [facility] Past Medications on file Venlafaxine HCl ER 75 MG Oral Capsule Extended Release 24 Hour 01/22/2024 - 07/20/2024 Provider: PATRICIO QUIROZ PA-C Diagnosis: Depression, unspecified TAKE 1 CAPSULE BY MOUTH EVERY DAY Last Documented On 4 1:29PM By PATRICIO QUIROZ PA-C ; [facility] busPIRone HCl 5 MG Oral Tablet 01/22/2024 - 07/20/2024 Provider: PATRICIO QUIROZ PA-C Diagnosis: Anxiety disorder , unspecified One tablet three times a day Last Documented On 4 1:29PM By PATRICIO QUIROZ PA-C ; [facility] ARIPiprazole 2 MG Oral Tablet 01/22/2024 - 07/20/2024 Provider: PATRICIO QUIROZ PA-C Diagnosis: Depression, unspecified TAKE 1 TABLET BY MOUTH EVERYDAY AT BEDTIME Last Documented On 4 1:29PM By PATRICIO QUIROZ PA-C ; [facility] metFORMIN HCl 500 MG Oral Tablet 01/22/2024 - 07/20/2024 Provider: PATRICIO QUIROZ PA-C Diagnosis: Obesity, unspeci fied TAKE 1 TABLET BY MOUTH TWICE A DAY Last Documented On 4 1:29PM By PATRICIO QUIROZ PA-C ; [facility] Medications Administered Includes: Administered Medications from this encounter No Administered Medications Recorded Vital Signs Includes: Vital Signs from this encounter Vital Name 04/28/2023 12:03P Height (in) 62 Weight (lb) 195 Body Mass Index 35.7 Body Surface Area 1.9 Last Documented: On 04/28/2023 12:03P M ; [facility] Results Includes: Results discussed during this encounter No Results Recorded For Specified Dates History of Present Illness Includes: History of Present Illness from this encounter HPI MEGHAN SKIERKIEWICZ is a 37 year old female. - Allergy list reviewed - Problem list reviewed - Medication reconciliation performed - Medication list reviewed - Not feeling tired or poorly --has had more energy - No recent weight gain --has lost a little weight. Tolerating Metformin - Anxiety --takes buspar 5mg BID but occ needs a 3rd dose - Depression --has had more motivation. Cleaning again. Walking daily really helped her mood but got a job at [employer] (3:30-midnight M-F) which has taken a lot of stress off of her. On her feet a lot with work so not walking as much - Low self-esteem - No insomnia - No difficulty falling asleep - No loss of pleasure from usual activities --improved - No apathy --improved - Not thinking about suicide - Not having a suicide plan - No previous suicide attempt Has done counseling (with 1 counselor) but has been years. Didn't feel it helped. Not my thing. Continues to stay sober. Originating site: [facility] Distant Site: Patient's Home Visit included: Patricio Quiroz PA-C & patient. This visit today was conducted with the use of interactive audio and or video telecommunication system with real time communication between the patient and the provider. Patient consent for virtual visit obtained when scheduled and again today. THIS VISIT LASTED 11 MIN face to face via telehealth. Social History Description Last Updated Drug use Former Meth user. 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 Weaning off nicotine 03/24/2023 Last Documented On 3 12:03PM ; [facility] Tobacco use 10/05/2018 Last Documented On 3 12:03PM ; [facility] Caffeine use 09/30/2017 Last Documented On 3 12:03PM ; [facility] Procedures and Surgical History Includes: Procedures from this encounter Procedures Code Diagnosis Performing Provider Service L ocation Service Date intervention and counseling on cessation of tobacco use : Patient recieved smoking cessation handout. Stop vaping 4000F Last Documented On 3 12:10PM ; [facility] use of tobacco assessment performed 1000F Last Documented On 3 12:10PM ; [facility] Medical History Includes: Medical History addressed during this encounter Description Last Updated LMP: 04/14/2023 04/28/2023 Last Documented On 3 12:10PM ; [facility] 4 01/22/2021 Last Documented On 3 12:03PM ; [facility] Para 4 01/22/2021 Last Documented On 3 12:03PM ; [facility] TUBAL LIGATION 201209/30/2017 Last Documented On 3 12:03PM ; [facility] Family History Includes: Family History addressed during this encounter No Family History Recorded Review of Systems Includes: Review of Systems from this encounter No Review of Systems Recorded Mental Status Includes: Mental Status from this encounter Description Cognitive functioning was no rmal Oriented to time, place, and person Thought processes were not i mpaired Anxiety --takes buspar 5mg B ID but occ needs a 3rd dose Not thinking about suicide Not having a suicide plan No previous suicide attempt The thought content revealed no impairment Depression Functional Status Includes: Functional Status from this encounter No Functional Status Recorded Physical Exam Includes: Physical Exam from this encounter Allergies Includes: Active Allergies Substance Type Reaction Onset Date Resolved Date Statu s Penicillins Allergy Skin Rashes / Er uption of skin, Hives / Urticaria, Asthma / Allergic asthma, Shortness of Breath / Dyspnea 12/27/2009 Active Last Documented On 4 1:00PM ; [facility] Encounters Encounter Provider Location Date Check-In Time Check-Out Time Diagnosis TELEHEALTH PATRICIO QUIROZ PA-C [facility] 04/28/20 23 11:29AM 12:00PM Anxiety Disorder Nos,Obesity,D epression,Hyp erlipidemia,H ypervitaminos is D Insurance Includes: Active Insurance Policies Plan Name Member ID Group # Subscriber Relationship Effect john Dates 1 - [employer] [id number] MEGHAN BRISENO Self Clinical Notes Includes: Clinical Notes from this encounter * Progress note Date Encounter Last Documented by 04/28/2023 TELEHEALTH Last documented on 04/28/2023; 12:10 PM, PATRICIO QUIROZ PA-C; [facility] Active Problems & Conditions - F43.22 - Adjustment Disorder with Anxiety - F15.10 - Methamphetamine Abuse History of Present Illness MEGHAN BRISENO is a 37 year old female. - Allergy list reviewed - Problem list reviewed - Medication reconciliation performed - Medication list reviewed - Not feeling tired or poorly --has had more energy - No recent weight gain --has lost a little weight. Tolerating Metformin - Anxiety --takes buspar 5mg BID but occ needs a 3rd dose - Depression --has had more motivation. Cleaning again. Walking daily really helped her mood but got a job at [employer] (3:30-midnight M-F) which has taken a lot of stress off of her. On her feet a lot with work so not walking as much - Low self-esteem - No insomnia - No difficulty falling asleep - No loss of pleasure from usual activities --improved - No apathy --improved - Not thinking about suicide - Not having a suicide plan - No previous suicide attempt Has done counseling (with 1 counselor) but has been years. Didn't feel it helped. Not my thing. Continues to stay sober. Originating site: [facility] Distant Site: Patient's Home Visit included: Patricio Quiroz PA-C & patient. This visit today was conducted with the use of interactive audio and or video telecommunication system with real time communication between the patient and the provider. Patient consent for virtual visit obtained when scheduled and again today. THIS VISIT LASTED 11 MIN face to face via telehealth. Current Medication - ARIPiprazole 2 MG Oral Tablet TAKE 1 TABLET BY MOUTH EVERYDAY AT BEDTIME, 90 days, 0 refills - Daily Multiple Vitamins Oral Tablet One tablet daily 0 days, 0 refills - metFORMIN HCl 500 MG Oral Tablet One tablet twice a day, 90 days, 1 refills - Venlafaxine HCl ER 75 MG Oral Capsule Extended Release 24 Hour 1 capsule daily; this is an increase., 90 days, 0 refills Past Medical/Surgical History Reported: LMP: 04/14/2023. : 4 and para 4. TUBAL LIGATION 2012. Social History Caffeine use: Caffeine use. Tobacco use: Current smoker quit cigarettes 11/2022; now vapes. Weaning off nicotine and smoking status: Current everyday smoker VAPES. Alcohol: Not using alcohol --rarely. Drug Use: Drug use Former Meth user. No THC. 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 Allergies - Penicillins Reaction: , Shortness of Breath / Dyspnea, , Hives / Urticaria Physical Findings - Vitals taken 04/28/2023 12:03 pm Height 62 in Weight 195 lbs Body Mass Index 35.7 kg/m2 Body Surface Area 1.9 m2 Standard Measurements: - Patient was observed to be obese. General Appearance: - Well-appearing. - Awake. - Alert. - Well developed. - Well nourished. - Well hydrated. - Active. - In no acute distress. Neurological: - Cognitive functioning was normal. - Oriented to time, place, and person. Cranial Nerves: - Normal. Psychiatric: Appearance: - Grooming was normal. Mood: - Euthymic. Affect: - Normal. Thought Processes: - Not impaired. Thought Content: - Revealed no impairment. UNABLE TO OBTAIN FULL EXAM DUE TO COVID 19 PUBLIC HE[facility] EMERGENCY. Assessment - [E78.49 - Other hyperlipidemia] Hyperlipidemia - [E67.3 - Hypervitaminosis D] Hypervitaminosis D - [E66.9 - Obesity, unspecified] Obesity - [F32.A - Depression, unspecified] Depression - [F41.9 - Anxiety disorder, unspecified] Anxiety disorder NOS Therapy - Intervention and counseling on cessation of tobacco use: Patient recieved smoking cessation handout. Stop vaping. Plan StartCited - Hypervitaminosis D Lab: VITAMIN D 25-HYDROXY EndCited StartCited - Other hyperlipidemia Lab: THYROID PANEL (TSH & FREE T4) Lab: LIPID PANEL Lab: CMP Lab: CBC WITH DIFF EndCited - Return to the clinic if condition worsens or new symptoms arise - Follow-up visit 4-6 mo Continue current meds. Keep up the exercise/moving. Get fasting labs prior to next appt. Call sooner if needed. Practice Management Use of tobacco assessment performed.
--- OUTSIDE RECORDS SUMMARY | 2025-02-13 13:18 | XMS_ITS ---
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 5 years of snorti ng and smoking. Adjustment Disorder with Anxiety 10/06/2017 MILLI CHAPA MD Active Last Documented On 10/06/2017 12:34AM ; [facility] Note: Unchanged Alcohol Use 02/04/2010 Unknown PARUL LORENZANA MD Resolved Last Documented On 09/09/2010 2:25PM ; [facility] Note: was Closed. History of Abnormal Pap Smear 02/04/2010 Unknown PARUL LORENZANA MD Resolved Last Documented On 09/09/2010 2:25PM ; [facility] Note: was Closed. History of Thromboembolic Disease 02/04/2010 Unknown PARUL LORENZANA MD Resolved Last Documented On 09/09/2010 2:25PM ; [facility] Note: was Closed. Reported Previous Std 02/04/2010 Unknown PARUL LORENZANA MD Resolved Last Documented On 09/09/2010 2:25PM ; [facility] Note: was Closed. Smoking During 02/04/2010 Unknown PARUL LORENZANA MD Resolved Last Documented On 09/09/2010 2:25PM ; [facility] Note: was Closed. Tobacco Use 02/04/2010 Unknown PARUL LORENZANA MD Resolved Last Documented On 09/09/2010 2:25PM ; [facility] Note: was Closed. Plan of Treatment Findings Encounter Date Will do labs today and go fr om there. Discussed can increase metformin if needed; otherwise can try mounjaro (if you are diabetic). Continue other meds. Obtain mammogram. Overdue for PAP smear. Call sooner if needed. ER if condition severe CHECK UP with PATRICIO QUIROZ PA-C 01/22/2024 Last Documented On 4 3:08PM ; [facility] Ordered Clinical summary pro vided to patient . Plan discussed and patient/parent/caregiver states understanding CHECK UP with PATRICIO QUIROZ PA-C 01/22/2024 Last Documented On 4 3:08PM ; [facility] Ordered follow-up visit 6 mo CHECK UP with CARMELLA QUIROZ PA-C 01/22/2024 Last Documented On 4 3:08PM ; [facility] Ordered return to the clinic if condition worsens or new symptoms arise CHECK UP with PATRICIO QUIROZ PA-C 01/22/2024 Last Documented On 4 3:08PM ; [facility] Continue current meds. Keep up the exercise/moving. Get fasting labs prior to next appt. Call sooner if needed TELEHEALTH with PATRICIO QUIROZ PA-C 04/28/2023 Last Documented On 3 12:10PM ; [facility] Ordered follow-up visit 4-6 mo TELEHEALTH with Mat QUIROZ PA-C 04/28/2023 Last Documented On 3 12:10PM ; [facility] Ordered return to the clinic if condition worsens or new symptoms arise TELEHEALTH with PATRICIO QUIROZ PA-C 04/28/2023 Last Documented On 3 12:10PM ; [facility] Stop the Lexapro; increase t he Venlafaxine to 75mg. Discussed exercise to help mood/motivation. Start with small goals--10-15min walk 4 days a week. Start cleaning again. Add metformin for weight gain. Discussed counseling--pt wants to hold off for now. Call sooner if needed. May need to refer to psych in the future if needed TELEHEALTH with PATRICIO QUIROZ PA-C 03/24/2023 Last Documented On 3 11:15AM ; [facility] Ordered follow-up visit 1-2 mo TELEHEALTH with Mat QUIROZ PA-C 03/24/2023 Last Documented On 3 11:15AM ; [facility] Ordered return to the clinic if condition worsens or new symptoms arise TELEHEALTH with PATRICIO QUIROZ PA-C 03/24/2023 Last Documented On 3 11:15AM ; [facility] Will do labs and get a sleep study and go from there. Continue current meds for now. If testing negative may need to increase lexapro to 15mg. Discussed next visit can be via telehealth. Call sooner if needed. ER if condition severe CHECK UP with PATRICIO QUIROZ PA-C 08/08/2022 Last Documented On 2 10:49AM ; [facility] Ordered Clinical summary pro vided to patient . Plan discussed and patient/parent/caregiver states understanding CHECK UP with PATRICIO QUIROZ PA-C 08/08/2022 Last Documented On 2 10:49AM ; [facility] Ordered follow-up visit 1-2 mo CHECK UP with ABBIE QUIROZ PA-C 08/08/2022 Last Documented On 2 10:49AM ; [facility] Ordered return to the clinic if condition worsens or new symptoms arise CHECK UP with PATRICIO QUIROZ PA-C 08/08/2022 Last Documented On 2 10:49AM ; [facility] Decrease Effexor to 37.5mg d aily x 7 days then stop it. Go ahead and start lexapro 10mg daily x 7 days then increase to 20mg daily when you stop the Effexor. Abilify 2mg at night. OK to continue Buspar 3x/day. Call sooner if needed. ER if condition severe CHECK UP with PATRICIO QUIROZ PA-C 03/20/2022 Last Documented On 2 12:50PM ; [facility] Ordered Clinical summary pro vided to patient . Plan discussed and patient/parent/caregiver states understanding CHECK UP with PATRICIO QUIROZ PA-C 03/20/2022 Last Documented On 2 12:50PM ; [facility] Ordered follow-up visit 4-6 wks CHECK UP with TAWANDA QUIROZ PA-C 03/20/2022 Last Documented On 2 12:50PM ; [facility] Ordered return to the clinic if condition worsens or new symptoms arise CHECK UP with PATRICIO CAGLE-C 03/20/2022 Last Documented On 2 12:50PM ; [facility] Stop the lexapro and start E ffexor 37.5mg daily ( may need to take in AMs). If doing well after 1 wk can increase to 2 a day. Will have to call office as insurance covers only 1 pill daily. Stop the wellbutrin. Continue the buspar (3 a day) for now until Effexor gets in your system. Call sooner if needed CHECK UP with PATRICIO QUIROZ PA-C 02/17/2022 Last Documented On 2 11:47AM ; [facility] Ordered Clinical summary pro vided to patient . Plan discussed and patient/parent/caregiver states understanding CHECK UP with PATRICIO QUIROZ PA-C 02/17/2022 Last Documented On 2 11:47AM ; [facility] Ordered follow-up visit 4 wks CHECK UP with KRYSTLE QIUROZ PA-C 02/17/2022 Last Documented On 2 11:47AM ; [facility] Ordered return to the clinic if condition worsens or new symptoms arise CHECK UP with PATRICIO QUIROZ PA-C 02/17/2022 Last Documented On 2 11:47AM ; [facility] Will continue current meds. See what labs show today with thyroid. Get ultrasound of your thyroid. Continue smoking cessation! Call sooner if needed CHECK UP with PATRICIO CAGLE-Zaynab 11/18/2021 Last Documented On 1 11:36AM ; [facility] Ordered follow-up visit 3-4 mo CHECK UP with ABBIE CAGLE-Zaynab 11/18/2021 Last Documented On 1 11:36AM ; [facility] Ordered return to the clinic if condition worsens or new symptoms arise CHECK UP with PATRICIO QUIROZ PA-C 11/18/2021 Last Documented On 1 11:36AM ; [facility] Get fasting labs to check th yroid. If normal and lump still present will get thyroid ultrasound. Decrease lexapro to 10mg daily (see if it helps with weight gain). Add Wellbutrin--helps with anxiety/depression and smoking cessation. Continue buspar 3x/day. Call sooner if needed CHECK UP with PATRICIO QUIROZ PA-C 10/15/2021 Last Documented On 1 12:48PM ; [facility] Ordered Clinical summary pro vided to patient . Plan discussed and patient/parent/caregiver states understanding CHECK UP with PATRICIO QUIROZ PA-C 10/15/2021 Last Documented On 1 12:48PM ; [facility] Ordered follow-up visit 1 mo CHECK UP with CARMELLA QUIROZ PA-C 10/15/2021 Last Documented On 1 12:48PM ; [facility] Ordered return to the clinic if condition worsens or new symptoms arise CHECK UP with PATRICIO QUIROZ PA-C 10/15/2021 Last Documented On 1 12:48PM ; [facility] Ordered return to the clinic if condition worsens or new symptoms arise WELL WOMAN - ESTABLISHED PT with MORGAN PAZ [facility]- 01/22/2021 Last Documented On 1 9:45AM ; [facility] Ordered patient will call fo r appointment as needed PROBLEM VISIT with MORGAN PAZ [facility] 07[facility]29/2019 Last Documented On 9 10:53AM ; [facility] Ordered return to the clinic if condition worsens or new symptoms arise PROBLEM VISIT with MORGAN PAZ [facility]- 07/29/2019 Last Documented On 9 10:53AM ; [facility] Ordered Clinical summary pro vided to patient . Plan discussed and patient/parent/caregiver states understanding GENERAL OFFICE VISIT with PATRICIO QUIROZ PA-C 03/07/2019 Last Documented On 9 3:39PM ; [facility] Ordered follow-up visit 6 mo . Increase the lexapro to 20mg daily. Continue to take the Buspar 10mg twice a day. Contact office if new symptoms/problems arise GENERAL OFFICE VISIT with PATRICIO QUIROZ PA-C 03/07/2019 Last Documented On 9 3:39PM ; [facility] Ordered follow-up visit in 1 month WELL WOMAN EXAM with MORGAN PAZ [facility]- 10/05/2018 Last Documented On 8 10:09AM ; [facility] Ordered return to the clinic if condition worsens or new symptoms arise WELL WOMAN EXAM with MORGAN PAZ [facility]- 10/05/2018 Last Documented On 8 10:09AM ; [facility] Pending Tests Order Diagnosis Results Due Ordering P rocarlosder Lab THYROID PANEL (TSH & FREE T4) 10/25/23 PATRICIO Worthy Last Documented On 4 3:52PM ; [facility] Lab VITAMIN D 25-HYDROXY 10/25/23 KRYSTLE QUIROZ PA-C Last Documented On 4 3:52PM ; [facility] Lab LIPID PANEL 10/25/23 PATRICIO MARTINEZ PA-C Last Documented On 4 3:52PM ; [facility] Lab CMP 10/25/23 PATRICIO GARCIA PA-C Last Documented On 4 3:52PM ; [facility] Lab CBC WITH DIFF 10/25/23 PATRICIO BROWNING PA-C Last Documented On 4 3:52PM ; [facility] Referrals To Diagnosis Psychologist Adjustment disor leonid with anxiety Note: [facility] [place] Last Documented On 8 6:29AM ; [facility] Instructions to patient Intervention and counseling on cessation of tobacco use : Patient recieved smoking cessation handout. Stop vaping Last Documented On 3 12:10PM ; [facility] Intervention and counseling on cessation of tobacco use : Patient recieved smoking cessation handout Last Documented On 3 10:48AM ; [facility] Intervention and counseling on cessation of tobacco use : Patient recieved smoking cessation handout Last Documented On 2 10:37AM ; [facility] Intervention and counseling on cessation of tobacco use : Patient recieved smoking cessation handout Last Documented On 1 9:48AM ; [facility] Intervention and counseling on cessation of tobacco use Last Documented On 1 9:16AM ; [facility] Intervention and counseling on cessation of tobacco use : Patient recieved smoking cessation handout Last Documented On 1 12:44PM ; [facility] Intervention and counseling on cessation of tobacco use Last Documented On 1 9:20AM ; [facility] Intervention and counseling on cessation of tobacco use Last Documented On 1 9:01AM ; [facility] Intervention and counseling on cessation of tobacco use Last Documented On 8 9:51AM ; [facility] Education and Decision Aids were provided during visit for: INFORMED CONSENT DISCUSSION: Prior to the procedure the risks of LEEP were discussed with the patient, including but not limited to bleeding (both during the procedure and in the first 2 weeks following), infection, cervical stenosis, and inadequate margins requiring a repeat procedure. The benefits of obtaining excisional biopsy results and possible resolution of cervical dysplasia were communicated. The alternatives of watchful waiting with repeat colposcopy in two months, or cone biopsy in the ambulatory surgery center were discussed. Patient expressed understanding of the above and consented to the procedure Last Documented On 0 2:39PM ; [facility] INFORMED CONSENT DISCUSSION: Colposcopy was discussed in detail including risk of post procedure bleeding. Patient is not to have intercourse for 5 days following the procedure. Patient expressed understanding of the above and consented to the procedure Last Documented On 0 3:51PM ; [facility] INFORMED CONSENT DISCUSSION: Colposcopy was discussed in detail including risk of post procedure bleeding. Patient is not to have intercourse for 5 days following the procedure. Patient expressed understanding of the above and consented to the procedure Last Documented On 0 2:05PM ; [facility] Smoking cessation advised Last Documented On 0 11:32AM ; [facility] Bacterial Vaginosis Informat ion Sheet Given H1N1 and seasonal flu vaccine advised. SAB precautions reviewed Last Documented On 0 11:31AM ; [facility] New OB form given to patient Last Documented On 0 11:31AM ; [facility] Assessments Includes: Assessments for all patient encounters Findings Encounter Date Adjustment disorder with anxiety CHECK UP with Mat QUIROZ PA-C 01/22/2024 Last Documented On 4 3:08PM ; [facility] Depression CHECK UP with PATRICIO E UQIROZ P A-C 01/22/2024 Last Documented On 4 3:08PM ; [facility] Fatigue CHECK UP with PATRICIO E QUIROZ P A-C 01/22/2024 Last Documented On 4 3:08PM ; [facility] Anxiety disorder NOS TELEHEALTH with PATRICIO Olayinka GRACE NKINS PA-C 04/28/2023 Last Documented On 3 12:10PM ; [facility] Depression TELEHEALTH with PTARICIO E QUIROZ PA-C 04/28/2023 Last Documented On 3 12:10PM ; [facility] Hyperlipidemia TELEHEALTH with PATRICIO E QUIROZ PA-C 04/28/2023 Last Documented On 3 12:10PM ; [facility] Hypervitaminosis D TELEHEALTH with PATRICIO Olayinka WYNN INS PA-C 04/28/2023 Last Documented On 3 12:10PM ; [facility] Obesity TELEHEALTH with PATRICIO E QUIROZ PA-C 04/28/2023 Last Documented On 3 12:10PM ; [facility] Anxiety disorder NOS TELEHEALTH with PATRICIO Olayinka GRACE NKINS PA-C 03/24/2023 Last Documented On 3 11:15AM ; [facility] Depression TELEHEALTH with PATRICIO E QUIROZ PA-C 03/24/2023 Last Documented On 3 11:15AM ; [facility] Obesity TELEHEALTH with PATRICIO E QUIROZ PA-C 03/24/2023 Last Documented On 3 11:15AM ; [facility] Adjustment disorder with anxiety CHECK UP with Mat QUIROZ PA-C 08/08/2022 Last Documented On 2 10:49AM ; [facility] Depression CHECK UP with PATRICIO E QUIROZ P A-C 08/08/2022 Last Documented On 2 10:49AM ; [facility] Fatigue CHECK UP with PATRICIO E QUIROZ P A-C 08/08/2022 Last Documented On 2 10:49AM ; [facility] Primary snoring CHECK UP with PATRICIO E QUIROZ P A-C 08/08/2022 Last Documented On 2 10:49AM ; [facility] Adjustment disorder with anxiety CHECK UP with K RISTA E QUIROZ PA-C 03/20/2022 Last Documented On 2 12:50PM ; [facility] Depression CHECK UP with PATRICIO E QUIROZ P A-C 03/20/2022 Last Documented On 2 12:50PM ; [facility] Adjustment disorder with anxiety CHECK UP with K RISTA E QUIROZ PA-C 02/17/2022 Last Documented On 2 11:47AM ; [facility] Depression CHECK UP with PATRICIO E QUIROZ P A-C 02/17/2022 Last Documented On 2 11:47AM ; [facility] Adjustment disorder with anxiety CHECK UP with K RISTA E QUIROZ PA-C 11/18/2021 Last Documented On 1 11:36AM ; [facility] Dysphagia CHECK UP with PATRICIO E QUIROZ P A-C 11/18/2021 Last Documented On 1 11:36AM ; [facility] Adjustment disorder with anxiety CHECK UP with K RISTA E QUIROZ PA-C 10/15/2021 Last Documented On 1 12:48PM ; [facility] [Z12.31 - Encounter for scre ening mammogram for malignant neoplasm of breast] Screening mammogram for malignant neoplasm of breast CHECK UP with REBECA CAGLE-C 06/12/2021 Last Documented On 1 3:43PM ; [facility] [Z80.3 - Family history of m alignant neoplasm of breast] Family history of breast neoplasm malignant CHECK UP with REBECA CAGLE-C 06/12/2021 Last Documented On 1 3:43PM ; [facility] [F41.9 - Anxiety disorder, u nspecified] anxiety disorder NOS PROBLEM VISIT with REBECA G JORGE LUIS PA-C 05/13/2021 Last Documented On 1 11:57AM ; [facility] [L30.9 - Dermatitis, unspeci fied] dermatitis PROBLEM VISIT with REBECA G JORGE LUIS PA-C 05/13/2021 Last Documented On 1 11:57AM ; [facility] [M54.9 - Dorsalgia, unspecif ied] backache PROBLEM VISIT with REBECA G JORGE LUIS PA-C 05/13/2021 Last Documented On 1 11:57AM ; [facility] [Z00.01 - Encounter for gene [facility] adult medical examination with abnormal findings] routine examination PROBLEM VISIT with REBECA Saleem JORGE LUIS PA-C 05/13/2021 Last Documented On 1 11:57AM ; [facility] Tinea corporis bilateral lower legs PROBLEM VISI T with MILLI CHAPA MD 01/23/2021 Last Documented On 1 6:55AM ; [facility] Winter itch PROBLEM VISIT with MILLI GARCIA MD 01/23/2021 Last Documented On 1 6:55AM ; [facility] Routine gynecological exam w ith cervical pap smear WELL WOMAN - ESTABLISHED PT with MORGAN PAZ [facility] [employer] 01/22/2021 Last Documented On 1 9:45AM ; [facility] Screen malignant neoplasm cervix WELL WO MAN - ESTABLISHED PT with MORGAN THOMPSONGRAVE PMHNP-BC [employer] 01/22/2021 Last Documented On 1 9:45AM ; [facility] SCREENING FOR STD WELL WOMAN - ESTABLI SHED PT with MORGAN Virk JACKSON PMHNP-BC [employer] 01/22/2021 Last Documented On 1 9:45AM ; [facility] Acute sinusitis PROBLEM VISIT with MORGAN SCHERER PMHNP-BC [employer] 07/29/2019 Last Documented On 9 10:53AM ; [facility] Acute upper respiratory infection PROBLE M VISIT with MORGAN PAZ PMHNP-[facility] [employer] 07/29/2019 Last Documented On 9 10:53AM ; [facility] Adjustment disorder with anxiety GENERAL OFFICE VISIT with PATRICIO QUIROZ PA-C 03/07/2019 Last Documented On 9 3:39PM ; [facility] Routine history and physical GENERAL OFF ICE VISIT with PATRICIO QUIROZ PA-C 03/07/2019 Last Documented On 9 3:39PM ; [facility] Adjustment disorder with anxiety WELL WO MAN EXAM with MORGAN THOMPSONGRAVE PMHNP-BC [employer] 10/05/2018 Last Documented On 8 10:09AM ; [facility] Routine gynecological exam w ith cervical pap smear WELL WOMAN EXAM with MORGAN THOMPSONGRAVE PMHNP-BC [employer] 10/05/2018 Last Documented On 8 10:09AM ; [facility] Screen malignant neoplasm cervix WELL WO MAN EXAM with MORGAN THOMPSONGRAVE PMHNP-BC [employer] 10/05/2018 Last Documented On 8 10:09AM ; [facility] SCREENING FOR STD WELL WOMAN EXAM with MORGAN THOMPSONGRAVE PMHNP-BC [employer] 10/05/2018 Last Documented On 8 10:09AM ; [facility] Adjustment disorder with anxiety NEW PATIENT VIS IT with MILLI CHAPA MD 09/30/2017 Last Documented On 7 12:35AM ; [facility] Dependence on nicotine in ci garettes - uncomplicated 1.5 PPD FOR 12 YRS NEW PATIENT VISIT with MILLI CHAPA MD 09/30/2017 Last Documented On 7 12:35AM ; [facility] Cervical dysplasia--severe (SAW III) LEEP with Eddie LORENZANA MD 10/28/2010 Last Documented On 0 2:43PM ; [facility] Severe cervical dysplasia (SAW III) LEEP with SA RA Tex LORENZANA MD 10/28/2010 Last Documented On 0 2:43PM ; [facility] Contraceptive management 1 MONTH CHECK with PARUL LORENZANA MD 10/11/2010 Last Documented On 0 2:43PM ; [facility] Assessment of abnormal Pap s mear of cervix COLPOSCOPY with PARUL LORENZANA MD 09/23/2010 Last Documented On 0 3:56PM ; [facility] Assessment of abnormal Pap s mear: high grade squamous intraepithelial lesion present COLPOSCOPY with PARUL LORENZANA MD 09/23/2010 Last Documented On 0 3:56PM ; [facility] Bacterial vaginosis COLPOSCOPY with PARUL Barragan MD 09/23/2010 Last Documented On 0 3:56PM ; [facility] Contraceptive management COLPOSCOPY with PARUL LORENZANA MD 09/23/2010 Last Documented On 0 3:56PM ; [facility] Contraceptive management: In sertion of IUD POST VISIT with PARUL LORENZANA MD 09/05/2010 Last Documented On 0 3:41PM ; [facility] Normal checkup (6 - 42 wk) RETURN OB EX AM with PARUL LORENZANA MD 07/11/2010 Last Documented On 0 9:12AM ; [facility] Normal checkup (6 - 42 wk) * PHONE CALL with PARUL LORENZANA MD 07/08/2010 Last Documented On 0 2:58PM ; [facility] Normal checkup (6 - 42 wk) RETURN OB EX AM with PARUL LORENZANA MD 07/04/2010 Last Documented On 0 8:52AM ; [facility] Normal checkup (6 - 42 wk) [facility]U [facility] Last Documented On 0 9:47AM ; [facility] Normal checkup (6 - 42 wk) * PHONE CALL with PARUL LORENZANA MD 06/25/2010 Last Documented On 0 1:58PM ; [facility] Normal checkup (6 - 42 wk) [Pat ient Encounter] with PARUL LORENZANA MD 06/25/2010 Last Documented On 0 2:44PM ; [facility] Normal checkup (6 - 42 wk) RETURN OB EX AM with PARUL LORENAZNA MD 06/20/2010 Last Documented On 0 10:11AM ; [facility] Normal checkup (6 - 42 wk) RETURN OB EX AM with PARUL LORENZANA MD 06/13/2010 Last Documented On 0 3:15PM ; [facility] Normal checkup (6 - 42 wk) RETU RN OB EXAM with [facility] Last Documented On 0 10:51AM ; [facility] Normal checkup (6 - 42 wk) * PHONE CALL with PARUL LORENZANA MD 05/21/2010 Last Documented On 0 1:29PM ; [facility] Normal checkup (6 - 42 wk) * PHONE CALL with PARUL LORENZANA MD 04/26/2010 Last Documented On 0 1:27PM ; [facility] Normal checkup (6 - 42 wk) RETURN OB EX AM with PARUL LORENZANA MD 04/09/2010 Last Documented On 0 10:32AM ; [facility] Assessment of abnormal Pap s mear of cervix ASC-H COLPOSCOPY with PARUL LORENZANA MD 03/14/2010 Last Documented On 0 2:28PM ; [facility] Normal checkup (6 - 42 wk) RETU RN OB EXAM [facility] 03/11/2010 Last Documented On 0 8:54AM ; [facility] Normal checkup (6 - 42 wk) NEW OB EXAM with PARUL LORENZANA MD 02/04/2010 Last Documented On 0 2:53PM ; [facility] Amenorrhea MISSED MENSES with [facility] 12/27/2009 Last Documented On 0 10:55AM ; [facility] Instructions Includes: Instructions for all patient encounters Instructions to patient Intervention and counseling on cessation of tobacco use : Patient recieved smoking cessation handout. Stop vaping Last Documented On 3 12:10PM ; [facility] Intervention and counseling on cessation of tobacco use : Patient recieved smoking cessation handout Last Documented On 3 10:48AM ; [facility] Intervention and counseling on cessation of tobacco use : Patient recieved smoking cessation handout Last Documented On 2 10:37AM ; [facility] Intervention and counseling on cessation of tobacco use : Patient recieved smoking cessation handout Last Documented On 1 9:48AM ; [facility] Intervention and counseling on cessation of tobacco use Last Documented On 1 9:16AM ; [facility] Intervention and counseling on cessation of tobacco use : Patient recieved smoking cessation handout Last Documented On 1 12:44PM ; [facility] Intervention and counseling on cessation of tobacco use Last Documented On 1 9:20AM ; [facility] Intervention and counseling on cessation of tobacco use Last Documented On 1 9:01AM ; [facility] Intervention and counseling on cessation of tobacco use Last Documented On 8 9:51AM ; [facility] Education and Decision Aids were provided during visit for: INFORMED CONSENT DISCUSSION: Prior to the procedure the risks of LEEP were discussed with the patient, including but not limited to bleeding (both during the procedure and in the first 2 weeks following), infection, cervical stenosis, and inadequate margins requiring a repeat procedure. The benefits of obtaining excisional biopsy results and possible resolution of cervical dysplasia were communicated. The alternatives of watchful waiting with repeat colposcopy in two months, or cone biopsy in the ambulatory surgery center were discussed. Patient expressed understanding of the above and consented to the procedure Last Documented On 0 2:39PM ; [facility] INFORMED CONSENT DISCUSSION: Colposcopy was discussed in detail including risk of post procedure bleeding. Patient is not to have intercourse for 5 days following the procedure. Patient expressed understanding of the above and consented to the procedure Last Documented On 0 3:51PM ; [facility] INFORMED CONSENT DISCUSSION: Colposcopy was discussed in detail including risk of post procedure bleeding. Patient is not to have intercourse for 5 days following the procedure. Patient expressed understanding of the above and consented to the procedure Last Documented On 0 2:05PM ; [facility] Smoking cessation advised Last Documented On 0 11:32AM ; [facility] Bacterial Vaginosis Informat ion Sheet Given H1N1 and seasonal flu vaccine advised. SAB precautions reviewed Last Documented On 0 11:31AM ; [facility] New OB form given to patient Last Documented On 0 11:31AM ; [facility] Medical Equipment - Implanted Devices Includes: Current and historical Devices No Medical Equipment Recorded Medications Includes: Current and historical Medications Current Medications (continue as prescribed) Daily Multiple Vitamins Oral Tablet 01/23/2021 Provi leonid: Diagnosis: Last Documented On 01/23/2021 10:38AM By María GALE ; [facility] Past Medications on file Venlafaxine HCl ER 75 MG Oral Capsule Extended Release 24 Hour 01/22/2024 - 07/20/2024 Provider: PATRICIO QUIROZ PA-C Diagnosis: Depression, unspecified TAKE 1 CAPSULE BY MOUTH EVERY DAY Last Documented On 4 1:29PM By PATRICIO QUIROZ PA-C ; [facility] busPIRone HCl 5 MG Oral Tablet 01/22/2024 - 07/20/2024 Provider: PATRICIO QUIROZ PA-C Diagnosis: Anxiety disorder , unspecified One tablet three times a day Last Documented On 4 1:29PM By PATRICIO QUIROZ PA-C ; [facility] ARIPiprazole 2 MG Oral Tablet 01/22/2024 - 07/20/2024 Provider: PATRICIO QUIROZ PA-C Diagnosis: Depression, unspecified TAKE 1 TABLET BY MOUTH EVERYDAY AT BEDTIME Last Documented On 4 1:29PM By PATRICIO QUIROZ PA-C ; [facility] metFORMIN HCl 500 MG Oral Tablet 01/22/2024 - 07/20/2024 Provider: PATRICIO QUIROZ PA-C Diagnosis: Obesity, unspeci fied TAKE 1 TABLET BY MOUTH TWICE A DAY Last Documented On 4 1:29PM By PATRICIO QUIROZ PA-C ; [facility] metFORMIN HCl 500 MG Oral Tablet 12/25/2023 - 01/22/2024 Provider: PATRICIO QUIROZ PA-C Diagnosis: Obesity, unspeci fied TAKE 1 TABLET BY MOUTH TWICE A DAY Last Documented On 4 1:16PM By PATRICIO QUIROZ PA-C ; [facility] busPIRone HCl 5 MG Oral Tablet 12/24/2023 - 01/22/2024 Provider: PATRICIO QUIROZ PA-C Diagnosis: Anxiety disorder , unspecified TAKE 1 TABLET BY MOUTH THREE TIMES A DAY PT NEEDS APPT Last Documented On 4 1:15PM By PATRICIO QUIROZ PA-C ; [facility] ARIPiprazole 2 MG Oral Tablet 12/21/2023 - 01/22/2024 Provider: PATRICIO QUIROZ PA-C Diagnosis: Depression, unspecified TAKE 1 TABLET BY MOUTH EVERYDAY AT BEDTIME Last Documented On 4 1:15PM By PATRICIO QUIROZ PA-C ; [facility] Venlafaxine HCl ER 75 MG Oral Capsule Extended Release 24 Hour 12/21/2023 - 01/22/2024 Provider: PATRICIO QUIROZ PA-C Diagnosis: Depression, unspecified TAKE 1 CAPSULE BY MOUTH EVERY DAY Last Documented On 4 1:14PM By PATRICIO QUIROZ PA-C ; [facility] busPIRone HCl 5 MG Oral Tablet 11/24/2023 - 12/24/2023 Provider: PATRICIO QUIROZ PA-C Diagnosis: Anxiety disorder , unspecified TAKE 1 TABLET BY MOUTH THREE TIMES A DAY Pt needs appt Last Documented On 4 9:16PM By PATIRCIO QUIROZ PA-C ; [facility] busPIRone HCl 5 MG Oral Tablet 10/22/2023 - 11/24/2023 Provider: PATRICIO QUIROZ PA-C Diagnosis: Anxiety disorder , unspecified TAKE 1 TABLET BY MOUTH THREE TIMES A DAY. Pt needs 6 mo appt in Oct Last Documented On 4 8:43AM By PATRICIO QUIROZ PA-C ; [facility] Venlafaxine HCl ER 75 MG Oral Capsule Extended Release 24 Hour 09/21/2023 - 12/21/2023 Provider: PATRICIO QUIROZ PA-C Diagnosis: Depression, unspecified TAKE 1 CAPSULE BY MOUTH EVER Y DAY Pt needs 6 mo appt in Oct. Last Documented On 4 1:06PM By PATRICIO QUIROZ PA-C ; [facility] metFORMIN HCl 500 MG Oral Tablet 09/21/2023 - 12/25/2023 Provider: PATRICIO QUIROZ PA-C Diagnosis: Obesity, unspeci fied TAKE 1 TABLET BY MOUTH TWICE A DAY. Pt needs 6 mo appt in Oct. Last Documented On 4 9:15AM By PATRICIO QUIROZ PA-C ; [facility] ARIPiprazole 2 MG Oral Tablet 09/17/2023 - 12/21/2023 Provider: PATRICIO QUIROZ PA-C Diagnosis: Depression, unspecified TAKE 1 TABLET BY MOUTH EVERYDAY AT BEDTIME Last Documented On 4 5:11PM By PTARICIO QUIROZ PA-C ; [facility] ARIPiprazole 2 MG Oral Tablet 06/15/2023 - 09/17/2023 Provider: PATRICIO QUIROZ PA-C Diagnosis: Depression, unspecified TAKE 1 TABLET BY MOUTH EVERYDAY AT BEDTIME Last Documented On 3 9:51AM By PATRICIO QUIROZ PA-C ; [facility] Venlafaxine HCl ER 75 MG Oral Capsule Extended Release 24 Hour 06/07/2023 - 09/21/2023 Provider: PATRICIO QUIROZ PA-C Diagnosis: Depression, unspecified TAKE 1 CAPSULE BY MOUTH EVERY DAY Last Documented On 3 10:03AM By PATRICIO QUIROZ PA-C ; [facility] busPIRone HCl 5 MG Oral Tablet 04/30/2023 - 10/22/2023 Provider: PATRICIO QUIROZ PA-C Diagnosis: Anxiety disorder , unspecified TAKE 1 TABLET BY MOUTH THREE TIMES A DAY Last Documented On 3 5:31PM By PATRICIO QUIROZ PA-C ; [facility] Venlafaxine HCl ER 75 MG Oral Capsule Extended Release 24 Hour 03/24/2023 - 06/07/2023 Provider: PATRICIO QUIROZ PA-C Diagnosis: Depression, unspecified 1 capsule daily; this is an increase. Last Documented On 3 9:11AM By PATRICIO QUIROZ PA-C ; [facility] metFORMIN HCl 500 MG Oral Tablet 03/24/2023 - 09/21/2023 Provider: PATRICIO QUIROZ PA-C Diagnosis: Obesity, unspeci fied One tablet twice a day Last Documented On 3 10:03AM By PATRICIO QUIROZ PA-C ; [facility] ARIPiprazole 2 MG Oral Tablet 03/24/2023 - 06/15/2023 Provider: PATRICIO QUIROZ PA-C Diagnosis: Depression, unspecified TAKE 1 TABLET BY MOUTH EVERYDAY AT BEDTIME Last Documented On 3 11:35AM By PATRICIO QUIROZ PA-C ; [facility] Escitalopram Oxalate 10 MG Oral Tablet 03/18/2023 - 01/22/2024 Provider: PATRICIO QUIROZ PA-C Diagnosis: TAKE 1 TABLET BY MOUTH EVERY DAY PT NEEDS APPT! Last Documented On 01/22/2024 1:00PM By DORIS GALE ; [facility] ARIPiprazole 2 MG Oral Tablet 03/18/2023 - 03/24/2023 Provider: PATRICIO QUIROZ PA-C Diagnosis: Depression, unspecified TAKE 1 TABLET BY MOUTH EVERY DAY AT BEDTIME PT NEEDS APPT BEFORE REFILLS. Last Documented On 3 11:04AM By PATRICIO QUIROZ PA-C ; [facility] Venlafaxine HCl ER 37.5 MG Oral Capsule Extended Release 24 Hour 03/16/2023 - 01/22/2024 Provider: PATRICIO QUIROZ PA-C Diagnosis: TAKE 1 CAPSULE BY MOUTH EVER Y DAY PT NEEDS APPT BEFORE ANY REFILLS! Last Documented On 01/22/2024 1:00PM By DORIS GALE ; [facility] Escitalopram Oxalate 10 MG Oral Tablet 02/13/2023 - 03/18/2023 Provider: PATRICIO QUIROZ PA-C Diagnosis: TAKE 1 TABLET BY MOUTH EVERY DAY Pt needs appt! Last Documented On 3 8:59PM By PATRICIO QUIROZ PA-C ; [facility] Venlafaxine HCl ER 37.5 MG Oral Capsule Extended Release 24 Hour 02/13/2023 - 03/16/2023 Provider: PATRICIO QUIROZ PA-C Diagnosis: TAKE 1 CAPSULE BY MOUTH EVERY DAY Pt needs appt! Last Documented On 3 9:31AM By PATRICIO QUIROZ PA-C ; [facility] ARIPiprazole 2 MG Oral Tablet 02/13/2023 - 03/18/2023 Provider: PATRICIO QUIROZ PA-C Diagnosis: Depression, unspecified TAKE 1 TABLET BY MOUTH EVERY DAY AT BEDTIME pt needs appt before refills. Last Documented On 3 8:59PM By PATRICIO QUIROZ PA-C ; [facility] Zithromax Z-Juma 250 MG Oral Tablet 11/14/2022 - 04/28/2023 Provider: PATRICIO QUIROZ PA-C Diagnosis: Take as directed. Last Documented On 04/28/2023 11:06AM By DORIS GALE ; [facility] busPIRone HCl 5 MG Oral Tablet 10/27/2022 - 04/30/2023 Provider: PATRICIO QUIROZ PA-C Diagnosis: Anxiety disorder , unspecified TAKE 1 TABLET BY MOUTH THREE TIMES A DAY Last Documented On 3 12:30PM By PATRICIO QUIROZ PA-C ; [facility] Effexor XR 37.5 MG Oral Capsule Extended Release 24 Hour 08/08/2022 - 02/13/2023 Provider: PATRICIO QUIROZ PA-C Diagnosis: 1 capsule daily Last Documented On 3 12:21PM By PATRICIO QUIROZ PA-C ; [facility] ARIPiprazole 2 MG Oral Tablet 08/08/2022 - 02/13/2023 Provider: PATRICIO QUIROZ PA-C Diagnosis: Depression, unspecified TAKE 1 TABLET BY MOUTH AT BEDTIME Last Documented On 3 12:21PM By PATRICIO QUIROZ PA-C ; [facility] Escitalopram Oxalate 10 MG Oral Tablet 08/08/2022 - 02/13/2023 Provider: PATRICIO QUIROZ PA-C Diagnosis: TAKE 1 TABLET BY MOUTH EVERY DAY Last Documented On 3 12:22PM By PATRICIO QUIROZ PA-C ; [facility] Escitalopram Oxalate 10 MG Oral Tablet 07/07/2022 - 08/08/2022 Provider: PATRICIO QUIROZ PA-C Diagnosis: TAKE 1 TABLET BY MOUTH EVERY DAY pt needs appt Last Documented On 2 10:40AM By PATRICIO QUIROZ PA-C ; [facility] ARIPiprazole 2 MG Oral Tablet 06/17/2022 - 08/08/2022 Provider: PATRICIO QUIROZ PA-C Diagnosis: Depression, unspecified TAKE 1 TABLET BY MOUTH AT BE DTIME NEEDS APPT!! Last Documented On 2 10:40AM By PATRICIO QUIROZ PA-C ; [facility] Venlafaxine HCl ER 37.5 MG Oral Capsule Extended Release 24 Hour 06/17/2022 - 08/08/2022 Provider: PATRICIO QUIROZ PA-C Diagnosis: TAKE 1 CAPSULE BY MOUTH EVERY DAY Pt needs appt Last Documented On 08/08/2022 10:14AM By DORIS GALE ; [facility] ARIPiprazole 2 MG Oral Tablet 05/27/2022 - 06/17/2022 Provider: PATRICIO QUIROZ PA-C Diagnosis: Depression, unspecified TAKE 1 TABLET BY MOUTH AT BE DTIME NEEDS APPT!! Last Documented On 2 9:09AM By PATRICIO QUIROZ PA-C ; [facility] ARIPiprazole 2 MG Oral Tablet 05/12/2022 - 05/27/2022 Provider: PATRICIO QUIROZ PA-C Diagnosis: Depression, unspecified TAKE 1 TABLET BY MOUTH AT BE DTIME NEEDS APPT!! Last Documented On 2 12:42PM By PATRICIO QUIROZ PA-C ; [facility] busPIRone HCl 5 MG Oral Tablet 05/02/2022 - 10/27/2022 Provider: PATRICIO QUIROZ PA-C Diagnosis: Anxiety disorder , unspecified TAKE 1 TABLET BY MOUTH THREE TIMES A DAY Last Documented On 2 2:17PM By PATRICIO QUIROZ PA-C ; [facility] ARIPiprazole 2 MG Oral Tablet 04/14/2022 - 05/12/2022 Provider: PATRICIO QUIROZ PA-C Diagnosis: Depression, unspecified TAKE 1 TABLET BY MOUTH AT BE DTIME needs appt in1 mo Last Documented On 2 8:40AM By PATRICIO QUIROZ PA-C ; [facility] Lexapro 10 MG Oral Tablet 03/28/2022 - 07/07/2022 Prov ider: PATRICIO QUIROZ PA-C Diagnosis: One tablet daily Last Documented On 2 8:42AM By PATRICIO QUIROZ PA-C ; [facility] Effexor XR 37.5 MG Oral Capsule Extended Release 24 Hour 03/28/2022 - 08/08/2022 Provider: PATRICIO QUIROZ PA-C Diagnosis: 1 capsule daily Last Documented On 2 10:41AM By PATRICIO QUIROZ PA-C ; [facility] Abilify 2 MG Oral Tablet 03/20/2022 - 04/14/2022 Provider: PATRICIO QUIROZ PA-C Diagnosis: Depression, unsp ecified One tablet at bed time; generic. Last Documented On 2 9:14AM By PATRICIO QUIROZ PA-C ; [facility] Effexor XR 37.5 MG Oral Capsule Extended Release 24 Hour 03/20/2022 - 08/08/2022 Provider: PATRICIO QUIROZ PA-C Diagnosis: Depression, unsp ecified 1 Capsule every morning x 7 days then stop. Generic. Last Documented On 08/08/2022 10:14AM By DORIS GALE ; [facility] Lexapro 20 MG Oral Tablet 03/20/2022 - 03/28/2022 Provider: PATRICIO QUIROZ PA-C Diagnosis: Depression, unsp ecified One tablet daily; generic. Last Documented On 2 11:05AM By PATRICIO QUIROZ PA-C ; [facility] buPROPion HCl ER (XL) 150 MG Oral Tablet Extended Release 24 Hour 03/10/2022 - 03/20/2022 Provider: PATRICIO QUIROZ PA-C Diagnosis: Adjustment disor leonid with anxiety TAKE 1 TABLET BY MOUTH EVERY DAY Last Documented On 03/20/2022 9:56AM By DORIS GALE ; [facility] Effexor XR 75 MG Oral Capsul e Extended Release 24 Hour 03/06/2022 - 03/28/2022 Provider: PATRICIO BROWNING PA-C Diagnosis: 1 Capsule every morning; increase. Last Documented On 2 11:04AM By PATRICIO QUIROZ PA-C ; [facility] Effexor XR 37.5 MG Oral Capsule Extended Release 24 Hour 02/17/2022 - 03/06/2022 Provider: PATRICIO QUIROZ PA-C Diagnosis: Adjustment disor leonid with anxiety as directed 1 cap qd Last Documented On 2 8:59AM By PATRICIO QUIROZ PA-C ; [facility] Effexor XR 37.5 MG Oral Capsule Extended Release 24 Hour 02/17/2022 - 02/17/2022 Provider: PATRICIO QUIROZ PA-C Diagnosis: Adjustment disor leonid with anxiety as directed 1 cap qd x6 days then increase to 2 a day. Generic. Replaces lexapro. Last Documented On 2 10:51AM By PATRICIO QUIROZ PA-C ; [facility] Escitalopram Oxalate 10 MG Oral Tablet 02/02/2022 - 03/06/2022 Provider: PATRICIO QUIROZ PA-C Diagnosis: Adjustment disor leonid with anxiety TAKE 1 TABLET BY MOUTH EVERY DAY Last Documented On 2 8:59AM By PATRICIO QUIROZ PA-C ; [facility] Escitalopram Oxalate 10 MG Oral Tablet 12/06/2021 - 02/02/2022 Provider: PATRICIO QUIROZ PA-C Diagnosis: Adjustment disor leonid with anxiety TAKE 1 TABLET BY MOUTH EVERY DAY Last Documented On 2 2:27PM By PATRICIO QUIROZ PA-C ; [facility] buPROPion HCl ER (XL) 150 MG Oral Tablet Extended Release 24 Hour 12/05/2021 - 03/10/2022 Provider: PATRICIO QUIROZ PA-C Diagnosis: Adjustment disor leonid with anxiety TAKE 1 TABLET BY MOUTH EVERY DAY Last Documented On 2 12:31PM By PATRICIO QUIROZ PA-C ; [facility] buPROPion HCl ER (XL) 150 MG Oral Tablet Extended Release 24 Hour 11/07/2021 - 12/05/2021 Provider: PATRICIO QUIROZ PA-C Diagnosis: Adjustment disor leonid with anxiety TAKE 1 TABLET BY MOUTH EVERY DAY Last Documented On 2 9:49AM By PATRICIO QUIROZ PA-C ; [facility] Wellbutrin XL 150 MG Oral Tablet Extended Release 24 Hour 10/15/2021 - 11/07/2021 Provider: PATRICIO QUIROZ PA-C Diagnosis: Adjustment disor leonid with anxiety One tablet daily; generic. Last Documented On 1 5:02PM By PATRICIO QUIROZ PA-C ; [facility] Lexapro 10 MG Oral Tablet 10/15/2021 - 12/06/2021 Provider: PATRICIO QUIROZ PA-C Diagnosis: Adjustment disor leonid with anxiety One tablet daily; dosage decrease. Last Documented On 2 8:32AM By PATRICIO QUIROZ PA-C ; [facility] Escitalopram Oxalate 20 MG Oral Tablet 08/30/2021 - 10/15/2021 Provider: REBECA YUSUF PA-C Diagnosis: Anxiety disorder , unspecified TAKE 1 TABLET BY MOUTH EVERY DAY Last Documented On 1 9:53AM By PATRICIO QUIROZ PA-C ; [facility] Escitalopram Oxalate 20 MG Oral Tablet 07/31/2021 - 08/30/2021 Provider: REBECA YUSUF PA-C Diagnosis: Anxiety disorder , unspecified TAKE 1 TABLET BY MOUTH EVERY DAY Last Documented On 1 4:15PM By Rebeca Yusuf PA-C ; [facility] busPIRone HCl 5 MG Oral Tablet 07/15/2021 - 05/02/2022 Provider: REBECA YUSUF PA-C Diagnosis: Anxiety disorder , unspecified TAKE 1 TABLET BY MOUTH THREE TIMES DAILY Last Documented On 2 3:12PM By PATRICIO QUIROZ PA-C ; [facility] Escitalopram Oxalate 20 MG Oral Tablet 07/15/2021 - 07/31/2021 Provider: REBECA YUSUF PA-C Diagnosis: Anxiety disorder , unspecified TAKE 1 TABLET BY MOUTH EVERY DAY Last Documented On 07/31/2021 9:30AM By Sunil GALE ; [facility] busPIRone HCl 5 MG Oral Tablet 07/09/2021 - 07/15/2021 Provider: REBECA YUSUF PA-C Diagnosis: Anxiety disorder , unspecified TAKE 1 TABLET BY MOUTH TWICE A DAY Last Documented On 1 9:40AM By Rebeca Yusuf PA-C ; [facility] Escitalopram Oxalate 20 MG Oral Tablet 07/08/2021 - 07/15/2021 Provider: REBECA YUSUF PA-C Diagnosis: Anxiety disorder , unspecified TAKE 1 TABLET BY MOUTH EVERY DAY Last Documented On 1 9:40AM By Rebeca Yusuf PA-C ; [facility] busPIRone HCl 5 MG Oral Tablet 06/12/2021 - 07/09/2021 Provider: REBECA YUSUF PA-C Diagnosis: Anxiety disorder , unspecified take 1 tablet twice daily Last Documented On 1 8:19AM By Rebeca Yusuf PA-C ; [facility] Escitalopram Oxalate 20 MG Oral Tablet 06/12/2021 - 07/08/2021 Provider: REBECA YUSUF PA-C Diagnosis: Anxiety disorder , unspecified take 1 tablet daily Last Documented On 7:47AM By Rebeca Yusuf PA-C ; [facility] Lexapro 10 MG Oral Tablet 06/04/2021 - 06/12/2021 Provider: REBECA Montiel PA-C Diagnosis: Anxiety disorder , unspecified take 1 tablet daily Last Documented On 2:59PM By Rebeca Yusuf PA-C ; [facility] methylPREDNISolone 4 MG Oral Tablet Therapy Pack 05/13/2021 - 07/15/2021 Provider: REBECA YUSUF PA-C Diagnosis: Dorsalgia, unspecified take as directed on packet Last Documented On 07/15/2021 9:12AM By Tereza GALE ; [facility] Lexapro 10 MG Oral Tablet 05/13/2021 - 06/04/2021 Provider: REBECA Montiel PA-C Diagnosis: Anxiety disorder , unspecified take 1 tablet daily Last Documented On 06/04/2021 8:42AM By Sunil GALE ; [facility] Fluconazole 100 MG Oral Tablet 01/23/2021 - 07/15/2021 Provider: MILLI CHAPA MD Diagnosis: Tinea corporis One tablet daily Last Documented On 07/15/2021 9:13AM By Tereza GALE ; [facility] hydrOXYzine HCl 10 MG Oral Tablet 01/23/2021 - 07/15/2021 Provider: MILLI CHAPA MD Diagnosis: Other pruritus 1 tab up to tid Last Documented On 07/15/2021 9:13AM By Tereza GALE ; [facility] Flonase Allergy Relief 50 MCG/ACT Nasal Suspension 07/29/2019 - 01/22/2021 Provider: MORGAN PAZ [facility] Diagnosis: 2 sprays each nostril once dalily Last Documented On 01/22/2021 8:51AM By Tereza GALE ; [facility] Doxycycline Monohydrate 100 MG Oral Capsule 07/29/2019 - 01/22/2021 Provider: MORGAN WIGGINS [facility] Diagnosis: 1 CAPSULE TWO TIMES A DAY Last Documented On 01/22/2021 8:51AM By Tereza GALE ; [facility] ZyrTEC Allergy 10 MG Oral Tablet 07/29/2019 - 01/22/2021 Provider: MORGAN THOMPSONANDRÉS HALIMAOlayinka PMHNP-[facility] Diagnosis: One tablet daily Last Documented On 01/22/2021 8:51AM By Tereza GALE ; [facility] busPIRone HCl 10MG Oral Tablet 03/07/2019 - 01/22/2021 Provider: PATRICIO QUIROZ PA-C Diagnosis: Adjustment disor leonid with anxiety One tablet twice a day; this is an increase. Last Documented On 01/22/2021 8:51AM By Tereza GALE ; [facility] Lexapro 20MG Oral Tablet 03/07/2019 - 01/22/2021 Provider: PATRICIO QUIROZ PA-C Diagnosis: Adjustment disor leonid with anxiety One tablet daily; this is an increase. Last Documented On 01/22/2021 8:51AM By Tereza GALE ; [facility] busPIRone HCl 5MG Oral Tablet 03/06/2019 - 07/29/2019 Provider: MILLI CHAPA MD Diagnosis: Adjustment disor leonid with anxiety One tablet twice a day Last Documented On 07/29/2019 10:30AM By Sandra GALE ; [facility] Lexapro 10MG Oral Tablet 03/06/2019 - 07/29/2019 Provider: MILLI CHAPA MD Diagnosis: Adjustment disor leonid with anxiety One tablet daily Last Documented On 07/29/2019 10:30AM By Sandra GALE ; [facility] Lexapro 10MG Oral Tablet 10/05/2018 - 03/06/2019 Provider: MORGAN VARGHESEOlayinka PM[facility]NP-[facility] Diagnosis: Adjustment disor leonid with anxiety One tablet daily Last Documented On 03/06/2019 9:12PM By LYNDA CHAPA MD ; [facility] BusPIRone HCl 5MG Oral Tablet 10/05/2018 - 03/06/2019 Provider: MORGAN PAZ [facility] Diagnosis: Adjustment disor leonid with anxiety One tablet twice a day Last Documented On 03/06/2019 1:31AM By LYNDA CHAPA MD ; [facility] Lexapro 20MG Oral Tablet 09/30/2017 - 03/07/2019 Provider: MILLI CHAPA MD Diagnosis: Adjustment disor leonid with anxiety One tablet daily Last Documented On 03/07/2019 3:02PM By EVY GALE ; [facility] BusPIRone HCl 5MG Oral Tablet 09/30/2017 - 10/05/2018 Provider: MILLI CHAPA MD Diagnosis: Adjustment disor leonid with anxiety ONE TAB BID AND MAY TAKE A T HIRD AT HS IF NEEDED Last Documented On 8 10:07AM By MORGAN PAZ [facility] ; [facility] Mirena (52 MG) 20 MCG/24HR IU IUD 10/31/2010 - 017 Provider: Diagnosis: Last Documented On 09/30/2017 10:11AM By RYLAND GALE ; [facility] Flagyl 500 MG OR TABS 10/28/2010 - 09/30/2017 Provider : PARUL LORENZANA MD Diagnosis: No alcohol while taking! Last Documented On 09/30/2017 10:01AM By RYLAND GALE ; [facility] Flagyl 500 MG OR TABS 09/23/2010 - 10/28/2010 Provider : PARUL LORENZANA MD Diagnosis: No alcohol while taking! Last Documented On 10/28/2010 2:42PM By PARUL LORENZANA MD ; [facility] Sertraline HCl 50 MG OR TABS 09/05/2010 - 09/30/2017 P rovider: PARUL LORENZANA MD Diagnosis: Last Documented On 09/30/2017 10:01AM By RYLAND GALE ; [facility] NIFEdipine 10 MG OR CAPS 06/13/2010 - 09/30/2017 Provi leonid: PARUL LORENZANA MD Diagnosis: i po Q4 hours prn contractions Last Documented On 09/30/2017 10:01AM By RYLAND GALE ; [facility] 19 OR TABS 05/31/2010 - 09/30/2017 Provider: YULIET RUIZ [facility] Diagnosis: Last Documented On 09/30/2017 10:01AM By RYLAND GALE ; [facility] Zithromax Z-Juma 250 MG OR TABS 05/08/2010 - 09/30/2017 Provider: SWETHA BALLARD M.D. Diagnosis: UPPER RESP DIS NEC/NOS 2 TABS TODAY THEN 1 DAILY UNTIL GONE Last Documented On 09/30/2017 10:01AM By RYLAND GALE ; [facility] Zofran 8 MG OR TABS 05/08/2010 - 09/30/2017 Provider: SWETHA BALLARD M.D. Diagnosis: NAUSEA ALONE 1 tab q 8 hrs Last Documented On 09/30/2017 10:01AM By RYLAND GALE ; [facility] Lexapro 10 MG OR TABS 02/04/2010 - 09/30/2017 Provider : PARUL LORENZANA MD Diagnosis: Last Documented On 09/30/2017 10:01AM By RYLAND GALE ; [facility] Flagyl 500 MG OR TABS 12/27/2009 - 09/23/2010 Provider : YULIET RUIZ [facility]- Diagnosis: Last Documented On 09/23/2010 3:50PM By PARUL LORENZANA MD ; [facility] Medications Administered Includes: Administered Medications in patient's chart No Administered Medications Recorded Results Includes: Results from 02/14/2024 through 02/13/2025 No Results Recorded For Specified Dates History of Present Illness History of Present Illness not supported for this document type No History of Present Illness Recorded Social History Description Last Updated Drug use 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 Weaning off nicotine 03/24/2023 Last Documented On 3 11:15AM ; [facility] Tobacco use 10/05/2018 Last Documented On 8 10:09AM ; [facility] Caffeine use 09/30/2017 Last Documented On 7 12:35AM ; [facility] Medical History Includes: Medical History in patient's chart Description Last Updated LMP: 01/15/2024 01/22/2024 Last Documented On 4 3:08PM ; [facility] 4 01/22/2021 Last Documented On 1 9:45AM ; [facility] Para 4 01/22/2021 Last Documented On 1 9:45AM ; [facility] TUBAL LIGATION 2013 09/30/2017 Last Documented On 7 12:35AM ; [facility] Family History Includes: Family History in patient's chart Description Last Updated Family history of Cancer Maternal Great Aunt ovarian cancer 08/08/2022 Last Documented On 2 10:49AM ; [facility] Family history of diabetes mellitus Mate rnal Grandmother, Mat Grandfather 08/08/2022 Last Documented On 2 10:49AM ; [facility] Maternal grandmother's history of diabet es mellitus MGM and MGF 08/08/2022 Last Documented On 2 10:49AM ; [facility] Family history unchanged 07/29/2019 Last Documented On 9 10:53AM ; [facility] Fraternal history of asthma 09/30/2017 Last Documented On 7 12:35AM ; [facility] Maternal grandmother's history of family history of cancer BREAST 09/30/2017 Last Documented On 7 12:35AM ; [facility] Paternal history of cholesterol problems 09/30/2017 Last Documented On 7 12:35AM ; [facility] Family history of malignant female breas t neoplasm Maternal Grandmother 10/28/2010 Last Documented On 0 2:43PM ; [facility] Family history of Diabetes 01/01/2010 Last Documented On 0 10:55AM ; [facility] Family medical history of high blood pre ssure 01/01/2010 Last Documented On 0 10:55AM ; [facility] Family medical history of High Cholester ol 01/01/2010 Last Documented On 0 10:55AM ; [facility] Review of Systems Review of Systems not supported for this document type No Review of Systems Recorded Mental Status Description Cognitive functioning was no rmal Oriented to time, place, and person Thought processes were not i mpaired Anxiety --takes buspar 5mg B ID. Doesn't need the third dose The thought content revealed no impairment No suicidal ideation Depression Functional Status No Functional Status Recorded Physical Exam Physical Exam not supported for this document type No Physical Exam Recorded Immunizations Includes: Immunizations in patient's chart Vaccine Dose # Date Site Reaction(s) Status Source DTP 1 1985 Complete (Reported) P atient Last Documented On 1 9:15AM ; [facility] DTP 2 03/12/1989 Complete (Reported) P atient Last Documented On 1 9:15AM ; [facility] DTP 3 01/13/1991 Complete (Reported) P atient Last Documented On 1 9:15AM ; [facility] DTP 4 08/09/1992 Complete (Reported) P atient Last Documented On 1 9:15AM ; [facility] Hep B (Engerix-B/Recombivax HB) Ped/Adult 3 dose 1 12/07/1997 Complete (Reported) Pa tient Last Documented On 1 9:15AM ; [facility] Hep B (Engerix-B/Recombivax HB) Ped/Adult 3 dose 2 01/11/1998 Complete (Reported) Pa tient Last Documented On 1 9:15AM ; [facility] Influenza (Quadrivalent)36 m o.& older PF 0.5ml (SD) 1 08/23/2014 Complete (Reported) Patie nt Last Documented On 7 9:51AM ; [facility] Influenza (Quadrivalent)36 m o.& older PF 0.5ml (SD) 2 08/16/2015 Complete (Reported) Patie nt Last Documented On 7 9:51AM ; [facility] Influenza (Trivalent) split virus-PF (ID) 1 08/23/2014 Complete (Reported) Patient Last Documented On 1 9:15AM ; [facility] Influenza (Trivalent) split virus-PF (ID) 2 08/16/2015 Complete (Reported) Patient Last Documented On 1 9:15AM ; [facility] Influenza, injectable, MDCK, preservative free, quadrivalent 1 09/16/2019 Left Deltoid Complete (Reported) Pat ient Last Documented On 1 9:15AM ; [facility] MMR 1 03/12/1989 Complete (Reported) P atient Last Documented On 1 9:15AM ; [facility] MMR 2 08/09/1992 Complete (Reported) P atient Last Documented On 1 9:15AM ; [facility] OPV 1 1987 Complete (Reported) P atient Last Documented On 1 9:15AM ; [facility] OPV 2 03/12/1989 Complete (Reported) P atient Last Documented On 1 9:15AM ; [facility] OPV 3 01/13/1991 Complete (Reported) P atient Last Documented On 1 9:15AM ; [facility] OPV 4 08/09/1992 Complete (Reported) P atient Last Documented On 1 9:15AM ; [facility] Tdap (Boostrix) 1 10/21/2012 Complete (Rep orted) Patient Last Documented On 1 9:15AM ; [facility] Allergies Includes: Active, inactive, and resolved Allergies Substance Type Reaction Onset Date Resolved Date Statu s Penicillins Allergy Skin Rashes / Er uption of skin, Hives / Urticaria, Asthma / Allergic asthma, Shortness of Breath / Dyspnea 12/27/2009 Active Last Documented On 4 1:00PM ; [facility] Insurance Includes: Active Insurance Policies Plan Name Member ID Group # Subscriber Relationship Effect john Dates 1 - [employer] [facility] [id number] MEGHAN BRISENO Self Clinical Notes Includes: Signed Clinical Notes starting from 12/12/2022 No Clinical Notes Recorded
--- OUTSIDE RECORDS SUMMARY | 2025-02-13 13:18 | XMS_ITS ---
Care Plan - [facility] Created on: February 13, 2025 MEGHAN BRISENO : 1985 Sex: Female Author Organization [facility] Address [address] [place] [address] Phone Care Team Providers Care Slipcover Cutter Name Role Phone MILLI CHAPA MD Primary Care Provider [phone]
--- OUTSIDE RECORDS SUMMARY | 2025-02-13 13:18 | XMS_ITS | Clinical Summary ---
Author Organization [facility] Address [address] [place] [address] Phone Care Team Providers Care Insect Control Aide Name Role Phone MILLI CHAPA MD Primary Care Provider [phone] Reason for Visit and Chief Complaint * PHONE CALL Problems Includes: Problems addressed during this encounter and other active Problems Current Visit Onset Date Resolved Date Provider Conditio n Status Alcohol Use 02/04/2010 Unknown PARUL LORENZANA MD Resolve d Last Documented On 09/09/2010 2:25PM ; [facility] Note: was Closed. Tobacco Use 02/04/2010 Unknown PARUL LORENZANA MD Resolve d Last Documented On 09/09/2010 2:25PM ; [facility] Note: was Closed. 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 5 years of snorti ng and smoking. Adjustment Disorder with Anxiety 10/06/2017 MILLI CHAPA MD Active Last Documented On 10/06/2017 12:34AM ; [facility] Note: Unchanged Plan of Treatment Pending Tests Order Diagnosis Results Due [facility]ing [facility] THYROID PANEL (TSH & FREE T4) 10/25/23 PATRICIO Worthy Last Documented On 4 3:52PM ; [facility] Lab VITAMIN D 25-HYDROXY 10/25/23 KRYSTLE QUIROZ PA-C Last Documented On 4 3:52PM ; [facility] LIPID PANEL 10/25/23 PATRICIO MARTINEZ PA-C Last Documented On 4 3:52PM ; [facility] CMP 10/25/23 PATRICIO GARCIA PA-C Last Documented On 4 3:52PM ; [facility] CBC WITH DIFF 10/25/23 PATRICIO BROWNING PA-C Last Documented On 4 3:52PM ; [facility] Assessments Includes: Assessments from this encounter No Assessments Recorded Medical Equipment - Implanted Devices Includes: Current Devices No Medical Equipment Recorded Medications Includes: Medications discussed during this encounter and other current Medications Discontinued / Stopped on this date PATRICIO QUIROZ PA-C on 03/24/2023 ARIPiprazole 2 MG Oral Tablet Provider: PATRICIO Worthy Diagnosis: Depression, unsp ecified Last Documented On 3 11:35AM By PATRICIO QUIROZ PA-C ; [facility] Current Medications (continue as prescribed) Daily Multiple Vitamins Oral Tablet 01/23/2021 Provi leonid: Diagnosis: Last Documented On 01/23/2021 10:38AM By María GALE ; [facility] Past Medications on file Venlafaxine HCl ER 75 MG Oral Capsule Extended Release 24 Hour 01/22/2024 - 07/20/2024 Provider: PATRICIO QUIROZ PA-C Diagnosis: Depression, unspecified TAKE 1 CAPSULE BY MOUTH EVERY DAY Last Documented On 4 1:29PM By PATRICIO QUIROZ PA-C ; [facility] busPIRone HCl 5 MG Oral Tablet 01/22/2024 - 07/20/2024 Provider: PATRICIO QUIROZ PA-C Diagnosis: Anxiety disorder , unspecified One tablet three times a day Last Documented On 4 1:29PM By PATRICIO QUIROZ PA-C ; [facility] ARIPiprazole 2 MG Oral Tablet 01/22/2024 - 07/20/2024 Provider: PATRICIO QUIROZ PA-C Diagnosis: Depression, unspecified TAKE 1 TABLET BY MOUTH EVERYDAY AT BEDTIME Last Documented On 4 1:29PM By PATRICIO QUIROZ PA-C ; [facility] metFORMIN HCl 500 MG Oral Tablet 01/22/2024 - 07/20/2024 Provider: PATRICIO E QUIROZ PA-C Diagnosis: Obesity, unspeci fied TAKE 1 TABLET BY MOUTH TWICE A DAY Last Documented On 4 1:29PM By PATRICIO QUIROZ PA-C ; [facility] Medications Administered Includes: Administered Medications from this encounter No Administered Medications Recorded Results Includes: Results discussed during this encounter No Results Recorded For Specified Dates History of Present Illness Includes: History of Present Illness from this encounter No History of Present Illness Recorded Social History Description Last Updated Drug use Former Meth user. 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 Weaning off nicotine 03/24/2023 Last Documented On 3 11:31AM ; [facility] Tobacco use 10/05/2018 Last Documented On 3 11:31AM ; [facility] Caffeine use 09/30/2017 Last Documented On 3 11:31AM ; [facility] Medical History Includes: Medical History addressed during this encounter Description Last Updated LMP: 04/14/2023 01/22/2024 Last Documented On 3 11:31AM ; [facility] 4 01/22/2021 Last Documented On 3 11:31AM ; [facility] Para 4 01/22/2021 Last Documented On 3 11:31AM ; [facility] TUBAL LIGATION 201209/30/2017 Last Documented On 3 11:31AM ; [facility] Family History Includes: Family History addressed during this encounter Description Last Updated Family history of Cancer Maternal Great Aunt ovarian cancer 08/08/2022 Last Documented On 3 11:31AM ; [facility] Family history of diabetes mellitus Mate rnal Grandmother, Mat Grandfather 08/08/2022 Last Documented On 3 11:31AM ; [facility] Maternal grandmother's history of diabet es mellitus MGM and MGF 08/08/2022 Last Documented On 3 11:31AM ; [facility] Family history unchanged 07/29/2019 Last Documented On 3 11:31AM ; [facility] Fraternal history of asthma 09/30/2017 Last Documented On 3 11:31AM ; [facility] Maternal grandmother's history of family history of cancer BREAST 09/30/2017 Last Documented On 3 11:31AM ; [facility] Paternal history of cholesterol problems 09/30/2017 Last Documented On 3 11:31AM ; [facility] Family history of malignant female breas t neoplasm Maternal Grandmother 10/28/2010 Last Documented On 3 11:31AM ; [facility] Family history of Diabetes 01/01/2010 Last Documented On 3 11:31AM ; [facility] Family medical history of high blood pre ssure 01/01/2010 Last Documented On 3 11:31AM ; [facility] Family medical history of High Cholester ol 01/01/2010 Last Documented On 3 11:31AM ; [facility] Review of Systems Includes: Review of Systems from this encounter No Review of Systems Recorded Mental Status Includes: Mental Status from this encounter No Mental Status Recorded Functional Status Includes: Functional Status from this encounter No Functional Status Recorded Physical Exam Includes: Physical Exam from this encounter No Physical Exam Recorded Allergies Includes: Active Allergies Substance Type Reaction Onset Date Resolved Date Statu s Penicillins Allergy Skin Rashes / Er uption of skin, Hives / Urticaria, Asthma / Allergic asthma, Shortness of Breath / Dyspnea 12/27/2009 Active Last Documented On 4 1:00PM ; [facility] Encounters Encounter Provider Location Date Check-In Time Check-Out Time Diagnosis * PHONE CALL PATRICIO QUIROZ PA-C 06/15/2023 11:14AM 11:59PM Insurance Includes: Active Insurance Policies Plan Name Member ID Group # Subscriber Relationship Effect john Dates 1 - [employer] [facility] [id number] MEGHAN BRISENO Self Clinical Notes Includes: Clinical Notes from this encounter * Progress note Date Encounter Last Documented by 06/15/2023 * PHONE CALL Last documented on 06/15/2023; 11:35 AM, PATRICIO QUIROZ PA-C; [facility] Active Problems & Conditions - F43.22 - Adjustment Disorder with Anxiety - F15.10 - Methamphetamine Abuse - Clean 02/01/2019. 5 years of snorting and smoking. Chief Complaint Phone Call - Chief Concern: Reason for call:pt called stating metformin is not helping her and wanted to try ozempic. i informed her that ozempic would not be covered unless she was diabetic. she wants to know if there is anything else. please advise pt phone # for return call: [phone] Date/Initials: tg 06/15. 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 Allergies - Penicillins Reaction: , Shortness of Breath / Dyspnea, , Hives / Urticaria Family History Family history unchanged Family medical history of high blood pressure Family medical history of High Cholesterol Cancer Maternal Great Aunt ovarian cancer Diabetes Diabetes mellitus Maternal Grandmother, Mat Grandfather Malignant female breast neoplasm Maternal Grandmother Paternal: Cholesterol problems Maternal grandmother's: Cancer BREAST Diabetes mellitus MGM and MGF Fraternal: Asthma Plan StartCited - Other PHY ORDER/COMMENT There's buproprion but she was on that and didn't work for her. Otherwise no other options. EndCited
--- OUTSIDE RECORDS SUMMARY | 2025-02-13 13:18 | XMS_ITS | Clinical Summary ---
Author Organization [facility] Address [address] [place] [address] Phone Care Team Providers Care Training Professional Name Role Phone MILLI CHAPA MD Primary Care Provider [phone] Reason for Visit and Chief Complaint TELEHEALTH Problems Includes: Problems addressed during this encounter and other active Problems Current Visit Onset Date Resolved Date Provider Conditio n Status Alcohol Use 02/04/2010 Unknown PARUL LORENZANA MD Resolve d Last Documented On 09/09/2010 2:25PM ; [facility] Note: was Closed. Tobacco Use 02/04/2010 Unknown PARUL LORENZANA MD Resolve d Last Documented On 09/09/2010 2:25PM ; [facility] Note: was Closed. Past Visits Onset Date Resolved Date Provider Condition Status Methamphetamine Abuse 03/07/2019 KIA QUIROZ PA-C Active Last Documented On 03/07/2019 3:36PM ; [facility] Note: Clean 02/01/2019. 5 years of snorti ng and smoking. Adjustment Disorder with Anxiety 10/06/2017 MILLI CHAPA MD Active Last Documented On 10/06/2017 12:34AM ; [facility] Note: Unchanged Plan of Treatment - Return to the clinic if condition worsens or new symptoms arise - Last Documented On 03/24/2023 11:15AM ; [facility] - Follow-up visit 1-2 mo - Last Documented On 03/24/2023 11:15AM ; [facility] Stop the Lexapro; increase the Venlafaxine to 75mg. Discussed exercise to help mood/motivation. Start with small goals--10-15min walk 4 days a week. Start cleaning again. Add metformin for weight gain. Discussed counseling--pt wants to hold off for now. Call sooner if needed. May need to refer to psych in the future if needed. - Last Documented On 03/24/2023 11:15AM ; [facility] Pending Tests Order Diagnosis Results Due Ordering [facility] THYROID PANEL (TSH & FREE T4) 10/25/23 KIA QUIROZ PA- C Last Documented On 4 3:52PM ; [facility] Lab VITAMIN D 25-HYDROXY 10/25/23 KRYSTLE QUIROZ PA-C Last Documented On 4 3:52PM ; [facility] Lab LIPID PANEL 10/25/23 KIA WYNN INS PA-C Last Documented On 4 3:52PM ; [facility] Lab CMP 10/25/23 KIA GARCIA PA-C Last Documented On 4 3:52PM ; [facility] Lab CBC WITH DIFF 10/25/23 KIA BROWNING PA-C Last Documented On 4 3:52PM ; [facility] Instructions to patient Intervention and counseling on cessation of tobacco use : Patient recieved smoking cessation handout Last Documented On 3 10:48AM ; [facility] Assessments Includes: Assessments from this encounter Findings - [E66.9 - Obesity, unspecified] Obesity - Last Documented On 03/24/2023 11:15AM ; [facility] - [F32.A - Depression, unspecified] Depression - Last Documented On 03/24/2023 11:15AM ; [facility] - [F41.9 - Anxiety disorder, unspecified] Anxiety disorder NOS - Last Documented On 03/24/2023 11:15AM ; [facility] Instructions Includes: Instructions from this encounter Instructions to patient Intervention and counseling on cessation of tobacco use : Patient recieved smoking cessation handout Last Documented On 3 10:48AM ; [facility] Medical Equipment - Implanted Devices Includes: Current Devices No Medical Equipment Recorded Medications Includes: Medications discussed during this encounter and other current Medications New / Renewed during this visit KIA QUIROZ PA-C on 03/24/2023 Venlafaxine HCl ER 75 MG Oral Capsule Extended Release 24 Hour Provider: KIA Worthy 90 day supply: 90 capsule, 0 refills Diagnosis: Depression, unspecified 1 capsule daily; this is an increase. Pharmacy: [address], [id number] - Last Documented On 3 9:11AM By KIA QUIROZ PA-C ; [facility] metFORMIN HCl 500 MG Oral Tablet Provider: KIA Worthy 90 day supply: 180 tablet, 1 refills Diagnosis: Obesity, unspecified One tablet twice a day Pharmacy: [address], [address] - Last Documented On 3 10:03AM By KIA QUIROZ PA-C ; [facility] ARIPiprazole 2 MG Oral Tablet Provider: KIA Worthy 90 day supply: 90 tablet, 0 refills Diagnosis: Depression, unspecified TAKE 1 TABLET BY MOUTH EVERY DAY AT BEDTIME Pharmacy: [address], [address] - Last Documented On 3 11:35AM By KIA QUIROZ PA-C ; [facility] Current Medications (continue as prescribed) Daily Multiple Vitamins Oral Tablet 01/23/2021 Provi leonid: Diagnosis: Last Documented On 01/23/2021 10:38AM By María GALE ; [facility] Past Medications on file Venlafaxine HCl ER 75 MG Oral Capsule Extended Release 24 Hour 01/22/2024 - 07/20/2024 Provider: KIA QUIROZ PA-C Diagnosis: Depression, unspecified TAKE 1 CAPSULE BY MOUTH EVERY DAY Last Documented On 4 1:29PM By KIA QUIROZ PA-C ; [facility] busPIRone HCl 5 MG Oral Tablet 01/22/2024 - 07/20/2024 Provider: KIA QUIROZ PA-C Diagnosis: Anxiety disorder , unspecified One tablet three times a day Last Documented On 4 1:29PM By KIA QUIROZ PA-C ; [facility] ARIPiprazole 2 MG Oral Tablet 01/22/2024 - 07/20/2024 Provider: KIA QUIROZ PA-C Diagnosis: Depression, unspecified TAKE 1 TABLET BY MOUTH EVERYDAY AT BEDTIME Last Documented On 4 1:29PM By KIA QUIROZ PA-C ; [facility] metFORMIN HCl 500 MG Oral Tablet 01/22/2024 - 07/20/2024 Provider: KIA QUIROZ PA-C Diagnosis: Obesity, unspeci fied TAKE 1 TABLET BY MOUTH TWICE A DAY Last Documented On 4 1:29PM By KIA QUIROZ PA-C ; [facility] Medications Administered Includes: Administered Medications from this encounter No Administered Medications Recorded Vital Signs Includes: Vital Signs from this encounter Vital Name 03/24/2023 10:41A Height (in) 62 Weight (lb) 197 Body Mass Index 36 Body Surface Area 1.9 Last Documented: On 03/24/2023 10:41A M ; [facility] Results Includes: Results discussed during this encounter CBC WITH DIFF [facility] La [facility]atory Ordered by KIA QUIROZ PA-C on 10/21/2022 [address] [place], [address] Collected: 10/21/2022 Report ed: 10/21/2022 11:16 tel: Last Documented On 2 9:31AM ; [facility] Reviewed by KIA QUIROZ PA-C on 10/27/2022; All test results are final unless otherwise noted. ALC 1.9 None Last Documented On 2 3:35PM ; [facility] Note: Responsible Observer: (NOV) ANC 4.0 None Last Documented On 2 3:35PM ; [facility] Note: Responsible Observer: (NOV) BASO# 0.1 th/uL (0.0 - 0.2) None Last Documented On 2 3:35PM ; [facility] Note: Responsible Observer: (NOV) BASO% 0.8 % (0.0 - 2.0) None Last Documented On 2 3:35PM ; [facility] Note: Responsible Observer: (NOV) CBC WITH DIFF See Note None Last Documented On 2 3:35PM ; [facility] Note: CBC (COMPLETE BLOOD COUNT)Responsi ble Observer: (NOV) DIFF (Y/N) NO None Last Documented On 2 3:35PM ; [facility] Note: Responsible Observer: (NOV) EOS# 0.36 th/uL (0.00 - 0.45) None Last Documented On 2 3:35PM ; [facility] Note: Responsible Observer: (NOV) EOS% 5.4 % (0.0 - 9.0) None Last Documented On 2 3:35PM ; [facility] Note: Responsible Observer: (NOV) HCT 35.8 % (38.0 - 47.0) L (Low) Last Documented On 3:35PM ; [facility] Note: Responsible Observer: (NOV) HGB 12.8 g/dL (12.0 - 16.0) None Last Documented On 3:35PM ; [facility] Note: Responsible Observer: (NOV) IG% 0.3 % (0.0 - 0.5) None Last Documented On 3:35PM ; [facility] Note: Responsible Observer: (NOV) LYMPH# 1.86 th/uL (1.00 - 4.80) None Last Documented On 3:35PM ; [facility] Note: Responsible Observer: (NOV) LYMPH% 28.0 % (14.0 - 45.0) None Last Documented On 3:35PM ; [facility] Note: Responsible Observer: (NOV) MCH 31.5 pg (25.0 - 35.0) None Last Documented On 3:35PM ; [facility] Note: Responsible Observer: (NOV) MCHC 35.8 g/dL (31.0 - 36.0) None Last Documented On 3:35PM ; [facility] Note: Responsible Observer: (NOV) MCV 88.2 fl (80.0 - 100) None Last Documented On 3:35PM ; [facility] Note: Responsible Observer: (NOV) MONO# 0.41 th/uL (0.00 - 0.80) None Last Documented On 3:35PM ; [facility] Note: Responsible Observer: (NOV) MONO% 6.2 % (1.0 - 10.0) None Last Documented On 3:35PM ; [facility] Note: Responsible Observer: (NOV) MPV 10.4 fl (6.0 - 11.0) None Last Documented On 3:35PM ; [facility] Note: Responsible Observer: (NOV) NEUT# 3.95 th/uL None Last Documented On 3:35PM ; [facility] Note: Responsible Observer: (NOV) NEUT% 59.3 % (45.0 - 76.0) None Last Documented On 3:35PM ; [facility] Note: Responsible Observer: (NOV) NRBC% 0.0 % (0.0 - 0.0) None Last Documented On 3:35PM ; [facility] Note: Responsible Observer: (NOV) PLT 261 th/uL (150 - 400) None Last Documented On 3:35PM ; [facility] Note: Responsible Observer: (NOV) RBC 4.06 mil/uL (4.00 - 5.20) None Last Documented On 3:35PM ; [facility] Note: Responsible Observer: (NOV) RDW 11.4 % (11.0 - 16.0) None Last Documented On 3:35PM ; [facility] Note: Responsible Observer: (NOV) WBC 6.7 th/uL (4.5 - 11.0) None Last Documented On 3:35PM ; [facility] Note: Responsible Observer: (NOV) CMP [facility] La [facility] Ordered by KIA QUIROZ PA-C on 10/21/[address] [place] [address], [phone] Collected: 10/21/2022 Report ed: 10/21/2022 11:29 tel: Last Documented On 9:31AM ; [facility] Reviewed by KIA QUIROZ PA-C on 10/27/2022; All test results are final unless otherwise noted. A/G RATIO 1.4 (1.1 - 2.2) None Last Documented On 2 3:35PM ; [facility] Note: Responsible Observer: (HRG) AGE 37 YEARS None Last Documented On 3:35PM ; [facility] Note: Responsible Observer: (HRG) ALBUMIN 3.8 g/dL (3.5 - 5.0) None Last Documented On 3:35PM ; [facility] Note: Responsible Observer: (HRG) ALK PHOS 46 IU/L (40 - 150) None Last Documented On 3:35PM ; [facility] Note: Responsible Observer: (HRG) ALT (SGPT) 55 IU/L (0 - 55) None Last Documented On 3:35PM ; [facility] Note: Responsible Observer: (HRG) ANION GAP 13.8 mmol/L (8.0 - 16.0) None Last Documented On 3:35PM ; [facility] Note: Responsible Observer: (HRG) AST (SGOT) 43 IU/L (14 - 36) H (High) Last Documented On 3:35PM ; [facility] Note: Responsible Observer: (HRG) BILIRUBIN TOT 0.5 mg/dL (0.2 - 1.0) None Last Documented On 3:35PM ; [facility] Note: Responsible Observer: (HRG) BUN 9 mg/dL (7 - 17) None Last Documented On 3:35PM ; [facility] Note: Responsible Observer: (HRG) CALCIUM 9.1 mg/dL (8.9 - 10.0) None Last Documented On 3:35PM ; [facility] Note: Responsible Observer: (HRG) CHLORIDE 103 mmol/L (98 - 107) None Last Documented On 3:35PM ; [facility] Note: Responsible Observer: (HRG) CMP See Note None Last Documented On 3:35PM ; [facility] Note: COMPREHENSIVE METABOLIC PANELRespo nsible Observer: (HRG) CREATININE 0.9 mg/dL (0.7 - 1.2) None Last Documented On 2 3:35PM ; [facility] Note: Responsible Observer: (HRG) GFR Afr-Am 92 ml/min None Last Documented On 2 3:35PM ; [facility] Note: Responsible Observer: (HRG) GFR Non-AfrAm 76 ml/min None Last Documented On 2 3:35PM ; [facility] Note: GFR INTERPRETATION AGE AVG GFR 20 -29 116 ml/min/1.73 m2 30-39 107 ml/min/1.73 m2 40-49 99 ml/min/1.73 m2 50-59 93 ml/min/1.73 m2 60-69 85 ml/min/1.73 m2 70+ 75 ml/min/1.73 m2 Chronic Kidney Disease-Less than 60 ml/min Kidney Failure-Less than 15 ml/minResponsible Observer: (HRG) GLOBULIN 2.7 g/dl (2.0 - 4.2) None Last Documented On 2 3:35PM ; [facility] Note: Responsible Observer: (HRG) GLUCOSE 81 mg/dL (65 - 99) None Last Documented On 3:35PM ; [facility] Note: Responsible Observer: (HRG) POTASSIUM 3.8 mmol/L (3.6 - 5.0) None Last Documented On 2 3:35PM ; [facility] Note: Responsible Observer: (HRG) SODIUM 137 mmol/L (137 - 145) None Last Documented On 2 3:35PM ; [facility] Note: Responsible Observer: (HRG) TCO2 24.0 mmol/L (22.0 - 30.0) None Last Documented On 2 3:35PM ; [facility] Note: Responsible Observer: (HRG) TOTAL PROTEIN 6.5 g/dL (6.4 - 8.3) None Last Documented On 2 3:35PM ; [facility] Note: Responsible Observer: (HRG) VITAMIN B12 [facility] La [facility]atory Ordered by KIA QUIROZ PA-C on 10/21/2022 [email or web address] [facility] [address], [place], [address] Collected: 10/21/2022 Report ed: 10/21/2022 12:03 tel: Last Documented On 2 9:31AM ; [facility] Reviewed by KIA QUIROZ PA-C on 10/27/2022; All test results are final unless otherwise noted. VIT B12 1062 pg/mL (213 - 816) H (High) Last Documented On 2 3:35PM ; [facility] Note: B12 INDETERMINATE: LEVELS ABOVE 30 0 pg/mL FOR PATIENTS WITH INDUCED HEMATOLOGICAL DISEASE OR LEVELS ABOVE 400 pg/mL FOR PATIENTS WITH NEUROLOGICAL DISEASE ARE RARELY ASSOCIATED WITH B12 DEFICIENCY. FURTHER TESTING IS SUGGESTED FOR SYMPTOMATIC PATIENTS WITH B12 LEVELS BETWEEN 100-300 pg/mL THAT HAVE HEMATOLOGICAL ABNORMALITIES AND FOR PATIENTS WITH LEVELS 100-400 pg/mL THAT HAVE NEUROLOGICAL ABNORMALITIES.Responsible Observer: (RATNA) VITAMIN D PANEL [facility] La [facility]atory Ordered by KIA QUIROZ PA-C on 10/21/2022 [address] [facility], [place], [address] Collected: 10/21/2022 Report ed: 10/25/2022 15:03 tel: Last Documented On 2 9:31AM ; [facility] Reviewed by KIA QUIROZ PA-C on 10/27/2022; All test results are final unless otherwise noted. VITAMIN D, 25-OH, D2 <4.0 ng/mL None Last Documented On 10/25/2022 3:35PM ; [facility] Note: (Note)Reference range: Not establishedThis test was developed and its analytical performancecharacteristics have been determined by [employer]. It has not beencleared or approved by the US Food and Drug Administration. Thisassay has been validated pursuant to the CLIA regulation and is usedfor Clinical purposes.MDed [id number] [address],[address] [place] [address] [phone] Chaump, MDSee Note 1Note 1For additional information, please refer tohttp://education.[employer]/faq/ELT307(This link is being provided for informational/educational purposes only.)THIS TEST WAS PERFORMED AT:[id number] [address] [address] [address]DJGNYVNALON LENNONesponsible Observer: (rfl) VITAMIN D, 25-OH, D3 75 ng/mL None Last Documented On 10/25/2022 3:35PM ; [facility] Note: Reference range: Not establishedResponsible Observer: (rfl) VITAMIN D, 25-OH, TOTAL 75 ng/mL (30-100) None Last Documented On 10/25/2022 3:35PM ; [facility] Note: (Note) Vitamin D, 25-Hydroxy reports concentrations of two common forms, 25-OHD2 and 25-OHD3. 25-OHD3 indicates both endogenous production and supplementation. 25-OHD2 is an indicator of exogenous sources such as diet or supplementation. Therapy is based on measurement of Total 25-OHD, with levels <20 ng/mL indicative of Vitamin D deficiency, while levels between 20 ng/mL and 30 ng/mL suggest insufficiency. Optimal levels are > or = 30 ng/mL. Vitamin D is fat-soluble and therefore inadvertent or intentional ingestion of excessively high amounts could be toxic. Studies in children and adults suggest blood levels would need to exceed 150 ng/mL before there is any concern. Kolton MF, Jessica NC, Kg DORMAN, et al. Evaluation, treatment and prevention of vitamin D deficiency: an Endocrine Society clinical practice guideline. J Clin Endocrinol Metab. 2011;96(7):1911-30. For additional information, please refer to http://education.[employer]/faq/MIU968Rytxuuzamgz Observer: (rfl) History of Present Illness Includes: History of Present Illness from this encounter HPI MEGHAN BRISENO is a 37 year old female. - Allergy list reviewed - Problem list reviewed - Medication reconciliation performed - Medication list reviewed - Feeling tired or poorly - Recent weight gain --no changes in eating habits. Thinks the lexapro is causing some weight gain. Has been on it in the past and caused some weight gain. Weight has made her more depressed - Anxiety --takes buspar 5mg BID but occ takes it TID - Depression --no motivation for the past several months. Currently fostering her neice (15) in Nov--added stress. Feels more seasonal depression. Used to love to clean; now finds herself not enjoying it - Loss of pleasure from usual activities - Apathy - Low self-esteem - No insomnia - No difficulty falling asleep - Not thinking about suicide - Not having a suicide plan - No previous suicide attempt Was on Wellbutrin in the past but it made her suarez. Has been struggling with depression/anxiety for the majority of her adult life. Has done counseling (with 1 counselor) but has been years. Didn't feel it helped. Not my thing. Continues to stay sober. Originating site: [facility] Distant Site: Patient's Home Visit included: Kia Quiroz PA-C & patient. This visit today was conducted with the use of interactive audio and or video telecommunication system with real time communication between the patient and the provider. Patient consent for virtual visit obtained when scheduled and again today. THIS VISIT LASTED 32 MIN. 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 No THC 2022 Last Documented On 3 11:15AM ; [facility] Not using alcohol --rarely 03/24/2023 Last Documented On 3 11:15AM ; [facility] Smoking status : Current everyday smoker VAPES 03/24/2023 Last Documented On 3 11:15AM ; [facility] Current smoker quit cigarettes 11/2022; n ow vapes. Weaning off nicotine 03/24/2023 Last Documented On 3 11:15AM ; [facility] Tobacco use 10/05/2018 Last Documented On 3 10:44AM ; [facility] Caffeine use 09/30/2017 Last Documented On 3 10:44AM ; [facility] Procedures and Surgical History Includes: Procedures from this encounter Procedures Code Diagnosis Performing Provider Service L ocation Service Date intervention and counseling on cessation of tobacco use : Patient recieved smoking cessation handout 4000F Last Documented On 3 10:48AM ; [facility] use of tobacco assessment performed 1000F Last Documented On 3 10:48AM ; [facility] Medical History Includes: Medical History addressed during this encounter Description Last Updated LMP: 03/17/2023 03/24/2023 Last Documented On 3 11:15AM ; [facility] 4 01/22/2021 Last Documented On 3 10:44AM ; [facility] Para 4 01/22/2021 Last Documented On 3 10:44AM ; [facility] TUBAL LIGATION 2013 09/30/2017 Last Documented On 3 10:44AM ; [facility] Family History Includes: Family History addressed during this encounter Description Last Updated Family history of Cancer Maternal Great Aunt ovarian cancer 08/08/2022 Last Documented On 3 10:44AM ; [facility] Family history of diabetes mellitus Mate rnal Grandmother, Mat Grandfather 08/08/2022 Last Documented On 3 10:44AM ; [facility] Maternal grandmother's history of diabet es mellitus MGM and MGF 08/08/2022 Last Documented On 3 10:44AM ; [facility] Family history unchanged 07/29/2019 Last Documented On 3 10:44AM ; [facility] Fraternal history of asthma 09/30/2017 Last Documented On 3 10:44AM ; [facility] Maternal grandmother's history of family history of cancer BREAST 09/30/2017 Last Documented On 3 10:44AM ; [facility] Paternal history of cholesterol problems 09/30/2017 Last Documented On 3 10:44AM ; [facility] Family history of malignant female breas t neoplasm Maternal Grandmother 10/28/2010 Last Documented On 3 10:44AM ; [facility] Family history of Diabetes 01/01/2010 Last Documented On 3 10:44AM ; [facility] Family medical history of high blood pre ssure 01/01/2010 Last Documented On 3 10:44AM ; [facility] Family medical history of High Cholester ol 01/01/2010 Last Documented On 3 10:44AM ; [facility] Review of Systems Includes: Review of Systems from this encounter No Review of Systems Recorded Mental Status Includes: Mental Status from this encounter Description Cognitive functioning was no rmal Oriented to time, place, and person Thought processes were not i mpaired Anxiety --takes buspar 5mg B ID but occ takes it TID Not thinking about suicide Not having a [...] Active Last Documented On 4 1:00PM ; [facility] Encounters Encounter Provider Location Date Check-In Time Check-Out Time Diagnosis TELEHEALTH KIA QUIROZ PA-C [facility] 03/24/20 23 10:36AM 11:11AM Obesity,Anxie ty Disorder Nos,Depressio n Insurance Includes: Active Insurance Policies Plan Name Member ID Group # Subscriber Relationship Effect john Dates 1 - [employer] [facility] [id number] MEGHAN BRISENO Self Clinical Notes Includes: Clinical Notes from this encounter * Progress note Date Encounter Last Documented by 03/24/2023 TELEHEALTH Last documented on 03/24/2023; 11:15 AM, KIA QUIROZ PA-C; [facility] Active Problems & Conditions - F43.22 - Adjustment Disorder with Anxiety - F15.10 - Methamphetamine Abuse - Clean 02/01/2019. 5 years of snorting and smoking. Reason For Visit telehealth visit for med check History of Present Illness MEGHAN BRISENO is a 37 year old female. - Allergy list reviewed - Problem list reviewed - Medication reconciliation performed - Medication list reviewed - Feeling tired or poorly - Recent weight gain --no changes in eating habits. Thinks the lexapro is causing some weight gain. Has been on it in the past and caused some weight gain. Weight has made her more depressed - Anxiety --takes buspar 5mg BID but occ takes it TID - Depression --no motivation for the past several months. Currently fostering her neluci (15) in Nov--added stress. Feels more seasonal depression. Used to love to clean; now finds herself not enjoying it - Loss of pleasure from usual activities - Apathy - Low self-esteem - No insomnia - No difficulty falling asleep - Not thinking about suicide - Not having a suicide plan - No previous suicide attempt Was on Wellbutrin in the past but it made her suarez. Has been struggling with depression/anxiety for the majority of her adult life. Has done counseling (with 1 counselor) but has been years. Didn't feel it helped. Not my thing. Continues to stay sober. Originating site: [facility] Distant Site: Patient's Home Visit included: Kia Quiroz PA-C & patient. This visit today was conducted with the use of interactive audio and or video telecommunication system with real time communication between the patient and the provider. Patient consent for virtual visit obtained when scheduled and again today. THIS VISIT LASTED 32 MIN. Current Medication - ARIPiprazole 2 MG Oral Tablet TAKE 1 TABLET BY MOUTH EVERYDAY AT BEDTIME PT NEEDS APPT BEFORE REFILLS., 7 days, 0 refills - busPIRone HCl 5 MG Oral Tablet TAKE 1 TABLET BY MOUTH THREE TIMES A DAY, 90 days, 1 refills - Daily Multiple Vitamins Oral Tablet One tablet daily 0 days, 0 refills - Escitalopram Oxalate 10 MG Oral Tablet TAKE 1 TABLET BY MOUTH EVERY DAY PT NEEDS APPT!, 7 days, 0 refills - Venlafaxine HCl ER 37.5 MG Oral Capsule Extended Release 24 Hour TAKE 1 CAPSULE BY MOUTH EVERY DAY PT NEEDS APPT BEFORE ANY REFILLS!, 15 days, 0 refills Past Medical/Surgical History Reported: LMP: 03/17/2023. : 4 and para 4. TUBAL LIGATION 2012. Social History Caffeine use: Caffeine use. Tobacco use: Current smoker quit cigarettes 11/2022; now vapes. Weaning off nicotine and smoking status: Current everyday smoker VAPES. Alcohol: Not using alcohol --rarely. Drug Use: Drug use Former Meth user. No THC. 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 Allergies - Penicillins Reaction: , Shortness of [...] Diabetes mellitus MGM and MGF Fraternal: Asthma Physical Findings - Vitals taken 03/24/2023 10:41 am Height 62 in Weight 197 lbs Body Mass Index 36 kg/m2 Body Surface Area 1.9 m2 Standard [...] COVID 19 PUBLIC HEALTH EMERGENCY. Assessment - [E66.9 - Obesity, unspecified] Obesity - [F32.A - Depression, unspecified] Depression - [F41.9 - Anxiety disorder, unspecified] Anxiety disorder NOS Previous Tests - Test: CBC WITH DIFF Report Date: 10/21/2022 ALC 1.9 ANC 4.0 BASO# 0.1 th/uL BASO% 0.8 % CBC WITH DIFF DIFF (Y/N) NO EOS# 0.36 th/uL EOS% 5.4 % HCT 35.8 % Low HGB 12.8 g/dL IG% 0.3 % LYMPH# 1.86 th/uL LYMPH% 28.0 % MCH 31.5 pg MCHC 35.8 g/dL MCV 88.2 fl MONO# 0.41 th/uL MONO% 6.2 % MPV 10.4 fl NEUT# 3.95 th/uL NEUT% 59.3 % NRBC% 0.0 % PLT 261 th/uL RBC 4.06 mil/uL RDW 11.4 % WBC 6.7 th/uL - Test: CMP Report Date: 10/21/2022 A/G RATIO 1.4 AGE 37 YEARS ALBUMIN 3.8 g/dL ALK PHOS 46 IU/L ALT (SGPT) 55 IU/L ANION GAP 13.8 mmol/L AST (SGOT) 43 IU/L High BILIRUBIN TOT 0.5 mg/dL BUN 9 mg/dL CALCIUM 9.1 mg/dL CHLORIDE 103 mmol/L CMP CREATININE 0.9 mg/dL GFR Afr-Am 92 ml/min GFR Non-AfrAm 76 ml/min GLOBULIN 2.7 g/dl GLUCOSE 81 mg/dL POTASSIUM 3.8 mmol/L SODIUM 137 mmol/L TCO2 24.0 mmol/L TOTAL PROTEIN 6.5 g/dL - Test: VITAMIN B12 Report Date: 10/21/2022 VIT B12 1062 pg/mL High - Test: VITAMIN D PANEL Report Date: 10/25/2022 VITAMIN D, 25-OH, D2 <4.0 ng/mL VITAMIN D, 25-OH, D3 75 ng/mL VITAMIN D, 25-OH, TOTAL 75 ng/mL Therapy - Intervention and counseling on cessation of tobacco use: Patient recieved smoking cessation handout. Discussed Due to the COVID 19 public health emergency, this visit was a two-way video telehealth with audio. The HPI was self reported by the patient. Certain physical exam findings were exemt/not assessed during this visit due to COVID 19 pandemic. Plan StartCited - Depression, unspecified ARIPiprazole 2 MG tablet TAKE 1 TABLET BY MOUTH EVERYDAY AT BEDTIME, 90 days, 0 refills Venlafaxine HCl ER 75 MG capsule 1 capsule daily; this is an increase., 90 days, 0 refills EndCited StartCited - Obesity, unspecified metFORMIN HCl 500 MG tablet One tablet twice a day, 90 days, 1 refills EndCited - Return to the clinic if condition worsens or new symptoms arise - Follow-up visit 1-2 mo Stop the Lexapro; increase the Venlafaxine to 75mg. Discussed exercise to help mood/motivation. Start with small goals--10-15min walk 4 days a week. Start cleaning again. Add metformin for weight gain. Discussed counseling--pt wants to hold off for now. Call sooner if needed. May need to refer to psych in the future if needed. Practice Management Use of tobacco assessment performed; [[id number]] Established outpatient, medically appropriate H&P, moderate level decision making, 30-39 minutes.
--- OUTSIDE RECORDS SUMMARY | 2025-02-13 13:18 | XMS_ITS | Clinical Summary ---
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 5 years of snorti ng and smoking. Adjustment Disorder with Anxiety 10/06/2017 MILLI CHAPA MD Active Last Documented On 10/06/2017 12:34AM ; [facility] Note: Unchanged Plan of Treatment No Plan of Treatment Recorded Assessments Includes: Assessments from this encounter No Assessments Recorded Medical Equipment - Implanted Devices Includes: Current Devices No Medical Equipment Recorded Medications Includes: Medications discussed during this encounter and other current Medications Current Medications (continue as prescribed) Daily Multiple Vitamins Oral Tablet 01/23/2021 Provi leonid: Diagnosis: Last Documented On 01/23/2021 10:38AM By María GALE ; [facility] Medications Administered Includes: Administered Medications from this encounter No Administered Medications Recorded Results Includes: Results discussed during this encounter No Results Recorded For Specified Dates History of Present Illness Includes: History of Present Illness from this encounter No History of Present Illness Recorded Social History No Social History Recorded - Smoking Status Unknown Medical History Includes: Medical History addressed during this encounter No Medical History Recorded Family History Includes: Family History addressed during [...] Active Last Documented On 4 1:00PM ; [facility] Insurance Includes: Active Insurance Policies Plan Name Member ID Group # Subscriber Relationship Effect john Dates 1 - [employer] [facility] [id number] MEGHAN BRISENO Self Clinical Notes Includes: Clinical Notes from this encounter No Clinical Notes Recorded
--- OUTSIDE RECORDS SUMMARY | 2025-02-13 13:18 | XMS_ITS | Clinical Summary ---
Author Organization [facility] Address [address] [place] [address] Phone Care Team Providers Care Cma Or Lpn Name Role Phone MILLI CHAPA MD Primary Care Provider [phone] Reason for Visit and Chief Complaint The Chief Complaint is: Med Ck. Pt feels meds are working okay Problems Includes: Problems addressed during this encounter and other active Problems Current Visit Onset Date Resolved Date Provider Conditio n Status Adjustment Disorder with Anxiety 10/06/2017 MILLI CHAPA MD Active Last Documented On 10/06/2017 12:34AM ; [facility] Note: Unchanged Alcohol Use 02/04/2010 Unknown PARUL LORENZANA MD Resolve d Last Documented On 09/09/2010 2:25PM ; [facility] Note: was Closed. Tobacco Use 02/04/2010 Unknown PARUL LORENZANA MD Resolve d Last Documented On 09/09/2010 2:25PM ; [facility] Note: was Closed. 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 5 years of snorti ng and smoking. Plan of Treatment - Return to the clinic if condition worsens or new symptoms arise - Last Documented On 01/22/2024 3:08PM ; [facility] - Follow-up visit 6 mo - Last Documented On 01/22/2024 3:08PM ; [facility] - Clinical summary provided to patient . Plan discussed and patient/parent/caregiver states understanding - Last Documented On 01/22/2024 3:08PM ; [facility] Will do labs today and go from there. Discussed can increase metformin if needed; otherwise can try mounjaro (if you are diabetic). Continue other meds. Obtain mammogram. Overdue for PAP smear. Call sooner if needed. ER if condition severe. - Last Documented On 01/22/2024 3:08PM ; [facility] Pending Tests Order Diagnosis Results Due Ordering P rovider Lab THYROID PANEL (TSH & FREE T4) 10/25/23 PATRICIO Worthy Last Documented On 4 3:52PM ; [facility] Lab VITAMIN D 25-HYDROXY 10/25/23 KRYSTLE QUIROZ PA-C Last Documented On 4 3:52PM ; [facility] Lab LIPID PANEL 10/25/23 PATRICIO CAGLE-Zaynab Last Documented On 4 3:52PM ; [facility] Lab CMP 10/25/23 PATRICIO CAGLE-Zaynab Last Documented On 4 3:52PM ; [facility] Lab CBC WITH DIFF 10/25/23 PATRICIO CAGLE-Zaynab Last Documented On 4 3:52PM ; [facility] Assessments Includes: Assessments from this encounter Findings - [R53.83 - Other fatigue] Fatigue - Last Documented On 01/22/2024 3:08PM ; [facility] - [F32.A - Depression, unspecified] Depression - Last Documented On 01/22/2024 3:08PM ; [facility] - [F43.22 - Adjustment disorder with anxiety] Adjustment disorder with anxiety - Last Documented On 01/22/2024 3:08PM ; [facility] Medical Equipment - Implanted Devices Includes: Current Devices No Medical Equipment Recorded Medications Includes: Medications discussed during this encounter and other current Medications Discontinued / Stopped on this date PATRICIO QUIROZ PA-C on 03/18/2023 Escitalopram Oxalate 10 MG Oral Tablet Pr ovider: PATRICIO QUIROZ PA-C Diagnosis: Last Documented On 01/22/2024 1:00PM By DORIS GALE ; [facility] Venlafaxine HCl ER 37.5 MG O ral Capsule Extended Release 24 Hour Provider: PATRICIO E JENKIN S PA-C Diagnosis: Last Documented On 01/22/2024 1:00PM By DORIS GALE ; [facility] New / Renewed during this visit PATRICIO QUIROZ PA-C on 01/22/2024 Venlafaxine HCl ER 75 MG Oral Capsule Extended Release 24 Hour Provider: PATRICIO Worthy 90 day supply: 90 capsule, 1 refills Diagnosis: Depression, unspecified TAKE 1 CAPSULE BY MOUTH EVERY DAY Pharmacy: [address], [id number] - Last Documented On 4 1:29PM By PATRICIO QUIROZ PA-C ; [facility] busPIRone HCl 5 MG Oral Tablet Provider: PATRICIO Worthy 90 day supply: 270 tablet, 1 refills Diagnosis: Anxiety disorder, unspecified One tablet three times a day Pharmacy: [address], [id number] - Last Documented On 4 1:29PM By PATRICIO QUIROZ PA-C ; [facility] ARIPiprazole 2 MG Oral Tablet Provider: PATRICIO Worthy 90 day supply: 90 tablet, 1 refills Diagnosis: Depression, unspecified TAKE 1 TABLET BY MOUTH EVERY DAY AT BEDTIME Pharmacy: [address], [id number] - Last Documented On 4 1:29PM By PATRICIO QUIROZ PA-C ; [facility] metFORMIN HCl 500 MG Oral Tablet Provider: PATRICIO Worthy 90 day supply: 180 tablet, 1 refills Diagnosis: Obesity, unspecified TAKE 1 TABLET BY MOUTH TWICE A DAY Pharmacy: [address], [address] - Last Documented On 4 1:29PM By PATRICIO QUIROZ PA-C ; [facility] Current Medications (continue as prescribed) Daily Multiple Vitamins Oral Tablet 01/23/2021 Provi leonid: Diagnosis: Last Documented On 01/23/2021 10:38AM By María GALE ; [facility] Medications Administered Includes: Administered Medications from this encounter No Administered Medications Recorded Vital Signs Includes: Vital Signs from this encounter Vital Name 01/22/2024 12:56P Blood Pressure Sitting L 122/88 Pulse Rate-Sitting (bpm) 72 Respiration Rate (breaths/min) 21 Temp-Temporal 97.1 Height (in) 62 Weight (lb) 185.375 Body Mass Index 33.9 Body Surface Area 1.9 Oxygen Saturation (%) 98 Last Documented: On 01/22/2024 1:02PM ; [facility] Results Includes: Results discussed during this encounter No Results Recorded For Specified Dates History of Present Illness Includes: History of Present Illness from this encounter MARCELA BRISENO is a 38 year old female. - Allergy list reviewed - Medication list reviewed - Fatigue - Not feeling tired or poorly - Anxiety --takes buspar 5mg BID. Doesn't need the third dose - Depression --overall doing OK - Sleeping much more than usual --when she doesn't take her metformin - No insomnia - No difficulty falling asleep - No loss of pleasure from usual activities - No apathy Works in evenings 3:30PM-Midnight (or 2AM). Gets a few hrs of sleep but then has to get up with the kids. Sleep isn't great to begin with. Does get a few more hrs in the AMs. Stopped metformin for about 45 days as her mom told her it causes dementia--pt was super tired/sluggish. Tested sugars as is DM II; was 200 (non fasting). Then restarted the metformin about 1 wk ago and has felt much better since. Has lost 10 lbs since April. Wondering about increasing the Metformin to see if it helps with her weight. Continues to stay clean from Meth. Hasn't touched it since 2018 Social History Description Last Updated Drug use 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 Weaning off nicotine 03/24/2023 Last Documented On 4 12:57PM ; [facility] Tobacco use 10/05/2018 Last Documented On 4 12:57PM ; [facility] Caffeine use 09/30/2017 Last Documented On 4 12:57PM ; [facility] Procedures and Surgical History Includes: Procedures from this encounter Procedures Code Diagnosis Performing Provider Service L ocation Service Date review of medications documented 1160F Last Documented On 4 1:02PM ; [facility] assessment of suicide risk performed Last Documented On 4 3:06PM ; [facility] screening for adult depression: impressi on and score twelve Last Documented On 4 3:06PM ; [facility] standardized depression screening: posit john for symptoms Last Documented On 4 3:06PM ; [facility] Medical History Includes: Medical History addressed during this encounter Description Last Updated LMP: 01/15/2024 01/22/2024 Last Documented On 4 3:08PM ; [facility] 4 01/22/2021 Last Documented On 4 12:57PM ; [facility] Para 4 01/22/2021 Last Documented On 4 12:57PM ; [facility] TUBAL LIGATION 201209/30/2017 Last Documented On 4 12:57PM ; [facility] Family History Includes: Family History addressed during this encounter Description Last Updated Family history of Cancer Maternal Great Aunt ovarian cancer 08/08/2022 Last Documented On 4 12:57PM ; [facility] Family history of diabetes mellitus Mate rnal Grandmother, Mat Grandfather 08/08/2022 Last Documented On 4 12:57PM ; [facility] Maternal grandmother's history of diabet es mellitus MGM and MGF 08/08/2022 Last Documented On 4 12:57PM ; [facility] Family history unchanged 07/29/2019 Last Documented On 4 12:57PM ; [facility] Fraternal history of asthma 09/30/2017 Last Documented On 4 12:57PM ; [facility] Maternal grandmother's history of family history of cancer BREAST 09/30/2017 Last Documented On 4 12:57PM ; [facility] Paternal history of cholesterol problems 09/30/2017 Last Documented On 4 12:57PM ; [facility] Family history of malignant female breas t neoplasm Maternal Grandmother 10/28/2010 Last Documented On 4 12:57PM ; [facility] Family history of Diabetes 01/01/2010 Last Documented On 4 12:57PM ; [facility] Family medical history of high blood pre ssure 01/01/2010 Last Documented On 4 12:57PM ; [facility] Family medical history of High Cholester ol 01/01/2010 Last Documented On 4 12:57PM ; [facility] Review of Systems Includes: Review of Systems from this encounter Systemic: No edema. Head: No headache. Cardiovascular: No chest pain or discomfort. Pulmonary: No shortness of breath. Neurological: No dizziness. Mental Status Includes: Mental Status from this encounter Description Cognitive functioning was no rmal Oriented to time, place, and person Thought processes were not i mpaired Anxiety --takes buspar 5mg B ID. Doesn't need the third dose The thought content revealed no impairment No suicidal ideation Depression Functional Status Includes: Functional Status from this encounter No Functional Status Recorded Physical Exam Includes: Physical Exam from this encounter Allergies Includes: Active Allergies Substance Type Reaction Onset Date Resolved Date Statu s Penicillins Allergy Skin Rashes / Er uption of skin, Hives / Urticaria, Asthma / Allergic asthma, Shortness of Breath / Dyspnea 12/27/2009 Active Last Documented On 4 1:00PM ; [facility] Encounters Encounter Provider Location Date Check-In Time Check-Out Time Diagnosis CHECK UP [facility] 01/22/20 24 12:55PM 1:41PM Fatigue,Adjus tment Disorder with Anxiety,Depre ssion Insurance Includes: Active Insurance Policies Plan Name Member ID Group # Subscriber Relationship Effect john Dates 1 - [employer] [id number] MEGHAN BRISENO Self Clinical Notes Includes: Clinical Notes from this encounter * Progress note Date Encounter Last Documented by 01/22/2024 CHECK UP Last documented on 01/22/2024; 3:08 PM, PATRICIO Worthy; [facility] Active Problems & Conditions - F43.22 - Adjustment Disorder with Anxiety - F15.10 - Methamphetamine Abuse - Clean 02/01/2019. 5 years of snorting and smoking. Chief Complaint The Chief Complaint is: Med Ck. Pt feels meds are working okay. History of Present Illness MEGHAN BRISENO is a 38 year old female. - Allergy list reviewed - Medication list reviewed - Fatigue - Not feeling tired or poorly - Anxiety --takes buspar 5mg BID. Doesn't need the third dose - Depression --overall doing OK - Sleeping much more than usual --when she doesn't take her metformin - No insomnia - No difficulty falling asleep - No loss of pleasure from usual activities - No apathy Works in evenings 3:30PM-Midnight (or 2AM). Gets a few hrs of sleep but then has to get up with the kids. Sleep isn't great to begin with. Does get a few more hrs in the AMs. Stopped metformin for about 45 days as her mom told her it causes dementia--pt was super tired/sluggish. Tested sugars as is DM II; was 200 (non fasting). Then restarted the metformin about 1 wk ago and has felt much better since. Has lost 10 lbs since April. Wondering about increasing the Metformin to see if it helps with her weight. Continues to stay clean from Meth. Hasn't touched it since 2018 Current Medication - Daily Multiple Vitamins Oral Tablet One tablet daily 0 days, 0 refills - metFORMIN HCl 500 MG Oral Tablet TAKE 1 TABLET BY MOUTH TWICE A DAY, 90 days, 0 refills Past Medical/Surgical History Reported: LMP: 01/15/2024. : 4 and para 4. TUBAL LIGATION 2012. Social History Caffeine use: Caffeine use. Tobacco use: Current smoker quit cigarettes 11/2022; now vapes. Weaning off nicotine and smoking status: Current everyday smoker VAPES. Alcohol: Not using alcohol --rarely. Drug Use: Drug use Former Meth user--clean since 2018. No THC. 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 Allergies - Penicillins Reaction: , Shortness [...] Diabetes mellitus MGM and MGF Fraternal: Asthma Review Of Systems Systemic: No edema. Head: No headache. Cardiovascular: No chest pain or discomfort. Pulmonary: No shortness of breath. Neurological: No dizziness. Physical Findings - Vitals taken 01/22/2024 12:56 pm BP-Sitting L 122/88 mmHg Pulse Rate-Sitting 72 bpm Respiration Rate 21 per min Temp-Temporal 97.1 F Height 62 in Weight 185 lbs 6 oz Body Mass Index 33.9 kg/m2 Body Surface Area 1.9 m2 Oxygen Saturation 98 % General Appearance: - Well-appearing. - Well developed. - Well nourished. Neck: Thyroid: - Showed no abnormalities. Eyes: General/bilateral: Pupils: - PERRLA. Lungs: - Clear to auscultation. Cardiovascular: Heart Rate And Rhythm: - Normal. Neurological: - Cognitive functioning was normal. - Oriented to time, place, and person. Cranial Nerves: - Normal. Psychiatric: Psychiatric: Value PHQ9 score: 12 JACKIE 7 score: 0 Appearance: - Grooming was normal. Mood: - Euthymic. Affect: - Normal. Thought Processes: - Not impaired. Thought Content: - Revealed no impairment. - No suicidal ideation. Assessment - [R53.83 - Other fatigue] Fatigue - [F32.A - Depression, unspecified] Depression - [F43.22 - Adjustment disorder with anxiety] Adjustment disorder with anxiety Therapy - Assessment of suicide risk performed Plan StartCited - Anxiety disorder, unspecified busPIRone HCl 5 MG tablet One tablet three times a day, 90 days, 1 refills EndCited StartCited - Depression, unspecified Venlafaxine HCl ER 75 MG capsule TAKE 1 CAPSULE BY MOUTH EVERY DAY, 90 days, 1 refills ARIPiprazole 2 MG tablet TAKE 1 TABLET BY MOUTH EVERYDAY AT BEDTIME, 90 days, 1 refills EndCited StartCited - Encntr screen mammogram for malignant neoplasm of breast Radiology @ [facility]/*MAMMOGRAPHY: Screening Mammogram Instructions: Additional images/ultrasounds if indicated Please send to PCP EndCited StartCited - Obesity, unspecified metFORMIN HCl 500 MG tablet TAKE 1 TABLET BY MOUTH TWICE A DAY, 90 days, 1 refills EndCited StartCited - Other fatigue Lab: Comp Metabolic Panel Lab: Lipid Panel Lab: CBC w/ DIFF Lab: Hemoglobin A1C Lab: TSH w/ reflex T-4, Free Lab: Vitamin B12 Lab: Vitamin D EndCited - Return to the clinic if condition worsens or new symptoms arise - Follow-up visit 6 mo - Clinical summary provided to patient . Plan discussed and patient/parent/caregiver states understanding Will do labs today and go from there. Discussed can increase metformin if needed; otherwise can try mounjaro (if you are diabetic). Continue other meds. Obtain mammogram. Overdue for PAP smear. Call sooner if needed. ER if condition severe. Practice Management Review of medications documented; Standardized depression screening: positive for symptoms and for adult impression and score twelve; [[id number]] Established outpatient, medically appropriate H&P, moderate level decision making, 30-39 minutes. Health Reminders - Depression Screening satisfied 01/22/2024.
--- OUTSIDE RECORDS SUMMARY | 2025-02-13 13:19 | XMS_ITS | Clinical Summary ---
Author Organization [facility] Address [address] [place] [address] Phone Care Team Providers Care All Purpose Clerk Name Role Phone MILLI CHAPA MD Primary Care Provider [phone] Reason for Visit and Chief Complaint PROBLEM VISIT Problems Includes: Problems addressed during this encounter and other active Problems All Visits Onset Date Resolved Date Provider Condition S tatus Methamphetamine Abuse 03/07/2019 PATRICIO QUIROZ PA-C Active Last Documented On 03/07/2019 3:36PM ; [facility] Note: Clean 02/01/2019. 5 years of snorti ng and smoking. Adjustment Disorder with Anxiety 10/06/2017 MILLI CHAPA MD Active Last Documented On 10/06/2017 12:34AM ; [facility] Note: Unchanged Plan of Treatment No Plan [...] On 01/23/2021 10:38AM By María GALE ; [facility] Medications Administered Includes: Administered [...] Active Last Documented On 4 1:00PM ; [facility] Insurance Includes: Active Insurance Policies Plan Name Member ID Group # Subscriber Relationship Effect john Dates 1 - [employer] [facility] [id number] MEGHAN BRISENO Self Clinical Notes Includes: Clinical Notes from this encounter No Clinical Notes Recorded
--- OUTSIDE RECORDS SUMMARY | 2025-02-13 13:20 | XMS_ITS | Clinical Summary ---
Author Organization [facility] Address [address] [place] [address] Phone Care Team Providers Care Analytical Research Program Manager Name Role Phone MILLI CHAPA MD Primary Care Provider [phone] Reason for Visit and Chief Complaint TELEHEALTH Problems Includes: Problems addressed during this encounter and other active Problems Current Visit Onset Date Resolved Date Provider Conditio n Status Alcohol Use 02/04/2010 Unknown PARUL LORENZANA MD Resolve d Last Documented On 09/09/2010 2:25PM ; [facility] Note: was Closed. Tobacco Use 02/04/2010 Unknown PARUL LORENZANA MD Resolve d Last Documented On 09/09/2010 2:25PM ; [facility] Note: was Closed. 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 5 years of snorti ng and smoking. Adjustment Disorder with Anxiety 10/06/2017 MILLI CHAPA MD Active Last Documented On 10/06/2017 12:34AM ; [facility] Note: Unchanged Plan of Treatment - Return to the clinic if condition worsens or new symptoms arise - Last Documented On 03/24/2023 11:15AM ; [facility] - Follow-up visit 1-2 mo - Last Documented On 03/24/2023 11:15AM ; [facility] Stop the Lexapro; increase the Venlafaxine to 75mg. Discussed exercise to help mood/motivation. Start with small goals--10-15min walk 4 days a week. Start cleaning again. Add metformin for weight gain. Discussed counseling--pt wants to hold off for now. Call sooner if needed. May need to refer to psych in the future if needed. - Last Documented On 03/24/2023 11:15AM ; [facility] Pending Tests Order Diagnosis Results Due Ordering [facility] THYROID PANEL (TSH & FREE T4) 10/25/23 KIA QUIROZ PA- C Last Documented On 4 3:52PM ; [facility] Lab VITAMIN D 25-HYDROXY 10/25/23 KRYSTLE QUIROZ PA-C Last Documented On 4 3:52PM ; [facility] Lab LIPID PANEL 10/25/23 KIA WYNN INS PA-C Last Documented On 4 3:52PM ; [facility] Lab CMP 10/25/23 KIA GARCIA PA-C Last Documented On 4 3:52PM ; [facility] CBC WITH DIFF 10/25/23 KIA BROWNING PA-C Last Documented On 4 3:52PM ; [facility] Instructions to patient Intervention and counseling on cessation of tobacco use : Patient recieved smoking cessation handout Last Documented On 3 10:48AM ; [facility] Assessments Includes: Assessments from this encounter Findings - [E66.9 - Obesity, unspecified] Obesity - Last Documented On 03/24/2023 11:15AM ; [facility] - [F32.A - Depression, unspecified] Depression - Last Documented On 03/24/2023 11:15AM ; [facility] - [F41.9 - Anxiety disorder, unspecified] Anxiety disorder NOS - Last Documented On 03/24/2023 11:15AM ; [facility] Instructions Includes: Instructions from this encounter Instructions to patient Intervention and counseling on cessation of tobacco use : Patient recieved smoking cessation handout Last Documented On 3 10:48AM ; [facility] Medical Equipment - Implanted Devices Includes: [...] capsule daily; this is an increase. Pharmacy: [address], [id number] - Last Documented On 3 9:11AM By KIA QUIROZ PA-C ; [facility] metFORMIN HCl 500 MG Oral Tablet Provider: KIA Worthy 90 day supply: 180 tablet, 1 refills Diagnosis: Obesity, unspecified One tablet twice a day Pharmacy: [address], [address] - Last Documented On 3 10:03AM By KIA QUIROZ PA-C ; [facility] ARIPiprazole 2 MG Oral Tablet Provider: KIA Worthy 90 day supply: 90 tablet, 0 refills Diagnosis: Depression, unspecified TAKE 1 TABLET BY MOUTH EVERY DAY AT BEDTIME Pharmacy: [address], [address] - Last Documented On 3 11:35AM By KIA QUIROZ PA-C ; [facility] Current Medications (continue as prescribed) Daily Multiple Vitamins Oral Tablet 01/23/2021 Provi leonid: Diagnosis: Last Documented On 01/23/2021 10:38AM By María GALE ; [facility] Past Medications on file Venlafaxine HCl ER 75 MG Oral Capsule Extended Release 24 Hour 01/22/2024 - 07/20/2024 Provider: KIA QUIROZ PA-C Diagnosis: Depression, unspecified TAKE 1 CAPSULE BY MOUTH EVERY DAY Last Documented On 4 1:29PM By KIA QUIROZ PA-C ; [facility] busPIRone HCl 5 MG Oral Tablet 01/22/2024 - 07/20/2024 Provider: KIA QUIROZ PA-C Diagnosis: Anxiety disorder , unspecified One tablet three times a day Last Documented On 4 1:29PM By KIA QUIROZ PA-C ; [facility] ARIPiprazole 2 MG Oral Tablet 01/22/2024 - 07/20/2024 Provider: KIA QUIROZ PA-C Diagnosis: Depression, unspecified TAKE 1 TABLET BY MOUTH EVERYDAY AT BEDTIME Last Documented On 4 1:29PM By KIA QUIROZ PA-C ; [facility] metFORMIN HCl 500 MG Oral Tablet 01/22/2024 - 07/20/2024 Provider: KIA QUIROZ PA-C Diagnosis: Obesity, unspeci fied TAKE 1 TABLET BY MOUTH TWICE A DAY Last Documented On 4 1:29PM By KIA QUIROZ PA-C ; [facility] Medications Administered Includes: Administered Medications from this encounter No Administered Medications Recorded Vital Signs Includes: Vital Signs from this encounter Vital Name 03/24/2023 10:41A Height (in) 62 Weight (lb) 197 Body Mass Index 36 Body Surface Area 1.9 Last Documented: On 03/24/2023 10:41A M ; [facility] Results Includes: Results discussed during this encounter CBC WITH DIFF [facility] La [facility]atory Ordered by KIA QUIROZ PA-C on 10/21/2022 [address] [place], [address] Collected: 10/21/2022 Report ed: 10/21/2022 11:16 tel: Last Documented On 2 9:31AM ; [facility] Reviewed by KIA QUIROZ PA-C on 10/27/2022; All test results are final unless otherwise noted. ALC 1.9 None Last Documented On 2 3:35PM ; [facility] Note: Responsible Observer: (NOV) ANC 4.0 None Last Documented On 2 3:35PM ; [facility] Note: Responsible Observer: (NOV) BASO# 0.1 th/uL (0.0 - 0.2) None Last Documented On 2 3:35PM ; [facility] Note: Responsible Observer: (NOV) BASO% 0.8 % (0.0 - 2.0) None Last Documented On 2 3:35PM ; [facility] Note: Responsible Observer: (NOV) CBC WITH DIFF See Note None Last Documented On 2 3:35PM ; [facility] Note: CBC (COMPLETE BLOOD COUNT)Responsi ble Observer: (NOV) DIFF (Y/N) NO None Last Documented On 2 3:35PM ; [facility] Note: Responsible Observer: (NOV) EOS# 0.36 th/uL (0.00 - 0.45) None Last Documented On 2 3:35PM ; [facility] Note: Responsible Observer: (NOV) EOS% 5.4 % (0.0 - 9.0) None Last Documented On 2 3:35PM ; [facility] Note: Responsible Observer: (NOV) HCT 35.8 % (38.0 - 47.0) L (Low) Last Documented On 3:35PM ; [facility] Note: Responsible Observer: (NOV) HGB 12.8 g/dL (12.0 - 16.0) None Last Documented On 3:35PM ; [facility] Note: Responsible Observer: (NOV) IG% 0.3 % (0.0 - 0.5) None Last Documented On 3:35PM ; [facility] Note: Responsible Observer: (NOV) LYMPH# 1.86 th/uL (1.00 - 4.80) None Last Documented On 3:35PM ; [facility] Note: Responsible Observer: (NOV) LYMPH% 28.0 % (14.0 - 45.0) None Last Documented On 3:35PM ; [facility] Note: Responsible Observer: (NOV) MCH 31.5 pg (25.0 - 35.0) None Last Documented On 3:35PM ; [facility] Note: Responsible Observer: (NOV) MCHC 35.8 g/dL (31.0 - 36.0) None Last Documented On 3:35PM ; [facility] Note: Responsible Observer: (NOV) MCV 88.2 fl (80.0 - 100) None Last Documented On 3:35PM ; [facility] Note: Responsible Observer: (NOV) MONO# 0.41 th/uL (0.00 - 0.80) None Last Documented On 3:35PM ; [facility] Note: Responsible Observer: (NOV) MONO% 6.2 % (1.0 - 10.0) None Last Documented On 3:35PM ; [facility] Note: Responsible Observer: (NOV) MPV 10.4 fl (6.0 - 11.0) None Last Documented On 3:35PM ; [facility] Note: Responsible Observer: (NOV) NEUT# 3.95 th/uL None Last Documented On 3:35PM ; [facility] Note: Responsible Observer: (NOV) NEUT% 59.3 % (45.0 - 76.0) None Last Documented On 3:35PM ; [facility] Note: Responsible Observer: (NOV) NRBC% 0.0 % (0.0 - 0.0) None Last Documented On 3:35PM ; [facility] Note: Responsible Observer: (NOV) PLT 261 th/uL (150 - 400) None Last Documented On 3:35PM ; [facility] Note: Responsible Observer: (NOV) RBC 4.06 mil/uL (4.00 - 5.20) None Last Documented On 3:35PM ; [facility] Note: Responsible Observer: (NOV) RDW 11.4 % (11.0 - 16.0) None Last Documented On 3:35PM ; [facility] Note: Responsible Observer: (NOV) WBC 6.7 th/uL (4.5 - 11.0) None Last Documented On 3:35PM ; [facility] Note: Responsible Observer: (NOV) CMP [facility] La [facility]atory Ordered by KIA QUIROZ PA-C on 10/21/[address] [place] [address], [address] Collected: 10/21/2022 Report ed: 10/21/2022 11:29 tel: Last Documented On 9:31AM ; [facility] Reviewed by KIA QUIROZ PA-C on 10/27/2022; All test results are final unless otherwise noted. A/G RATIO 1.4 (1.1 - 2.2) None Last Documented On 2 3:35PM ; [facility] Note: Responsible Observer: (HRG) AGE 37 YEARS None Last Documented On 3:35PM ; [facility] Note: Responsible Observer: (HRG) ALBUMIN 3.8 g/dL (3.5 - 5.0) None Last Documented On 3:35PM ; [facility] Note: Responsible Observer: (HRG) ALK PHOS 46 IU/L (40 - 150) None Last Documented On 3:35PM ; [facility] Note: Responsible Observer: (HRG) ALT (SGPT) 55 IU/L (0 - 55) None Last Documented On 3:35PM ; [facility] Note: Responsible Observer: (HRG) ANION GAP 13.8 mmol/L (8.0 - 16.0) None Last Documented On 3:35PM ; [facility] Note: Responsible Observer: (HRG) AST (SGOT) 43 IU/L (14 - 36) H (High) Last Documented On 3:35PM ; [facility] Note: Responsible Observer: (HRG) BILIRUBIN TOT 0.5 mg/dL (0.2 - 1.0) None Last Documented On 3:35PM ; [facility] Note: Responsible Observer: (HRG) BUN 9 mg/dL (7 - 17) None Last Documented On 3:35PM ; [facility] Note: Responsible Observer: (HRG) CALCIUM 9.1 mg/dL (8.9 - 10.0) None Last Documented On 3:35PM ; [facility] Note: Responsible Observer: (HRG) CHLORIDE 103 mmol/L (98 - 107) None Last Documented On 3:35PM ; [facility] Note: Responsible Observer: (HRG) CMP See Note None Last Documented On 3:35PM ; [facility] Note: COMPREHENSIVE METABOLIC PANELRespo nsible Observer: (HRG) CREATININE 0.9 mg/dL (0.7 - 1.2) None Last Documented On 2 3:35PM ; [facility] Note: Responsible Observer: (HRG) GFR Afr-Am 92 ml/min None Last Documented On 2 3:35PM ; [facility] Note: Responsible Observer: (HRG) GFR Non-AfrAm 76 ml/min None Last Documented On 2 3:35PM ; [facility] Note: GFR INTERPRETATION AGE AVG GFR 20 -29 116 ml/min/1.73 m2 30-39 107 ml/min/1.73 m2 40-49 99 ml/min/1.73 m2 50-59 93 ml/min/1.73 m2 60-69 85 ml/min/1.73 m2 70+ 75 ml/min/1.73 m2 Chronic Kidney Disease-Less than 60 ml/min Kidney Failure-Less than 15 ml/minResponsible Observer: (HRG) GLOBULIN 2.7 g/dl (2.0 - 4.2) None Last Documented On 2 3:35PM ; [facility] Note: Responsible Observer: (HRG) GLUCOSE 81 mg/dL (65 - 99) None Last Documented On 3:35PM ; [facility] Note: Responsible Observer: (HRG) POTASSIUM 3.8 mmol/L (3.6 - 5.0) None Last Documented On 2 3:35PM ; [facility] Note: Responsible Observer: (HRG) SODIUM 137 mmol/L (137 - 145) None Last Documented On 2 3:35PM ; [facility] Note: Responsible Observer: (HRG) TCO2 24.0 mmol/L (22.0 - 30.0) None Last Documented On 2 3:35PM ; [facility] Note: Responsible Observer: (HRG) TOTAL PROTEIN 6.5 g/dL (6.4 - 8.3) None Last Documented On 2 3:35PM ; [facility] Note: Responsible Observer: (HRG) VITAMIN B12 [facility] [place] [facility]atory Ordered by KIA QUIROZ PA-C on 10/21/2022 [address] [facility] [place], [address] Collected: 10/21/2022 Report ed: 10/21/2022 12:03 tel: Last Documented On 2 9:31AM ; [facility] Reviewed by KIA QUIROZ PA-C on 10/27/2022; All test results are final unless otherwise noted. VIT B12 1062 pg/mL (213 - 816) H (High) Last Documented On 2 3:35PM ; [facility] Note: B12 INDETERMINATE: LEVELS ABOVE 30 [...] NEUROLOGICAL ABNORMALITIES.Responsible Observer: (RATNA) VITAMIN D PANEL [facility] La [facility]atory Ordered by KIA QUIROZ PA-C on 10/21/2022 [address] [facility], [place], [address] Collected: 10/21/2022 Report ed: 10/25/2022 15:03 tel: Last Documented On 2 9:31AM ; [facility] Reviewed by KIA QUIROZ PA-C on 10/27/2022; All test results are final unless otherwise noted. VITAMIN D, 25-OH, D2 <4.0 ng/mL None Last Documented On 10/25/2022 3:35PM ; [facility] Note: (Note)Reference range: Not establishedThis test was developed and its analytical performancecharacteristics have been determined by [employer]. It has not beencleared or approved by the US Food and Drug Administration. Thisassay has been validated pursuant to the CLIA regulation and is usedfor Clinical purposes.[address]ed [id number] [address],[address] [place] [address] [phone] Chaump, MDSee Note 1Note 1For additional information, please refer tohttp://education.[employer]/faq/ZYP882(This link is being provided for informational/educational purposes only.)THIS TEST WAS PERFORMED AT:[id number] [address] [address] [address]SGDFPSLALON LENNONesponsible Observer: (rfl) VITAMIN D, 25-OH, D3 75 ng/mL None Last Documented On 10/25/2022 3:35PM ; [facility] Note: Reference range: Not establishedResponsible Observer: (rfl) VITAMIN D, 25-OH, TOTAL 75 ng/mL (30-100) None Last Documented On 10/25/2022 3:35PM ; [facility] Note: (Note) Vitamin D, [...] 2011;96(7):1911-30. For additional information, please refer to http://education.[employer]/faq/DMY620Meftoyjwzwc Observer: (rfl) History of Present Illness Includes: [...] thing. Continues to stay sober. Originating site: [facility] Distant Site: Patient's Home Visit included: [...] 04/28/2023 Last Documented On 3 10:44AM ; [facility] Drug use Former Meth user. No THC 2022 Last Documented On 3 11:15AM ; [facility] Not using alcohol --rarely 03/24/2023 Last Documented On 3 11:15AM ; [facility] Smoking status : Current everyday smoker VAPES 03/24/2023 Last Documented On 3 11:15AM ; [facility] Current smoker quit cigarettes 11/2022; n ow vapes. Weaning off nicotine 03/24/2023 Last Documented On 3 11:15AM ; [facility] Tobacco use 10/05/2018 Last Documented On 3 10:44AM ; [facility] Caffeine use 09/30/2017 Last Documented On 3 10:44AM ; [facility] Procedures and Surgical History Includes: Procedures from this encounter Procedures Code Diagnosis Performing Provider Service L ocation Service Date intervention and counseling on cessation of tobacco use : Patient recieved smoking cessation handout 4000F Last Documented On 3 10:48AM ; [facility] use of tobacco assessment performed 1000F Last Documented On 3 10:48AM ; [facility] Medical History Includes: Medical History addressed during this encounter Description Last Updated LMP: 03/17/2023 03/24/2023 Last Documented On 3 11:15AM ; [facility] 4 01/22/2021 Last Documented On 3 10:44AM ; [facility] Para 4 01/22/2021 Last Documented On 3 10:44AM ; [facility] TUBAL LIGATION 2013 09/30/2017 Last Documented On 3 10:44AM ; [facility] Family History Includes: Family History addressed during this encounter Description Last Updated Family history of Cancer Maternal Great Aunt ovarian cancer 08/08/2022 Last Documented On 3 10:44AM ; [facility] Family history of diabetes mellitus Mate rnal Grandmother, Mat Grandfather 08/08/2022 Last Documented On 3 10:44AM ; [facility] Maternal grandmother's history of diabet es mellitus MGM and MGF 08/08/2022 Last Documented On 3 10:44AM ; [facility] Family history unchanged 07/29/2019 Last Documented On 3 10:44AM ; [facility] Fraternal history of asthma 09/30/2017 Last Documented On 3 10:44AM ; [facility] Maternal grandmother's history of family history of cancer BREAST 09/30/2017 Last Documented On 3 10:44AM ; [facility] Paternal history of cholesterol problems 09/30/2017 Last Documented On 3 10:44AM ; [facility] Family history of malignant female breas t neoplasm Maternal Grandmother 10/28/2010 Last Documented On 3 10:44AM ; [facility] Family history of Diabetes 01/01/2010 Last Documented On 3 10:44AM ; [facility] Family medical history of high blood pre ssure 01/01/2010 Last Documented On 3 10:44AM ; [facility] Family medical history of High Cholester ol 01/01/2010 Last Documented On 3 10:44AM ; [facility] Review of Systems Includes: [...] Active Last Documented On 4 1:00PM ; [facility] Encounters Encounter Provider Location Date Check-In Time Check-Out Time Diagnosis TELEHEALTH KIA QUIROZ PA-C [facility] 03/24/20 23 10:36AM 11:11AM Obesity,Anxie ty Disorder Nos,Depressio n Insurance Includes: Active Insurance Policies Plan Name Member ID Group # Subscriber Relationship Effect john Dates 1 - [employer] [facility] [id number] MEGHAN BRISENO Self Clinical Notes Includes: Clinical Notes from this encounter * Progress note Date Encounter Last Documented by 03/24/2023 TELEHEALTH Last documented on 03/24/2023; 11:15 AM, KIA QUIROZ PA-C; [facility] Active Problems & Conditions [...] thing. Continues to stay sober. Originating site: [facility] Distant Site: Patient's Home Visit included: [...] Practice Management Use of tobacco assessment performed; [10116] Established outpatient, medically appropriate H&P, moderate level decision making, 30-39 minutes.
--- OUTSIDE RECORDS SUMMARY | 2025-02-13 13:20 | XMS_ITS ---
Care Plan - [facility] Created on: February 13, 2025 MEGHAN BRISENO : 1985 Sex: Female Author Organization [facility] Address [address] [place] [address] Phone Care Team Providers Care Piping Designer Name Role Phone MILLI CHAPA MD Primary Care Provider [phone]
--- OUTSIDE RECORDS SUMMARY | 2025-02-13 13:20 | XMS_ITS | Clinical Summary ---
Author Organization [facility] Address [address] [place] [address] Phone Care Team Providers Care Coffee Taster Name Role Phone MILLI CHAPA MD Primary Care Provider [phone] Reason for Visit and Chief Complaint TELEHEALTH Problems Includes: Problems addressed during this encounter and other active Problems Current Visit Onset Date Resolved Date Provider Conditio n Status Alcohol Use 02/04/2010 Unknown PARUL LORENZANA MD Resolve d Last Documented On 09/09/2010 2:25PM ; [facility] Note: was Closed. Tobacco Use 02/04/2010 Unknown PARUL LORENZANA MD Resolve d Last Documented On 09/09/2010 2:25PM ; [facility] Note: was Closed. 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 5 years of snorti ng and smoking. Adjustment Disorder with Anxiety 10/06/2017 MILLI CHAPA MD Active Last Documented On 10/06/2017 12:34AM ; [facility] Note: Unchanged Plan of Treatment - Return to the clinic if condition worsens or new symptoms arise - Last Documented On 04/28/2023 12:10PM ; [facility] - Follow-up visit 4-6 mo - Last Documented On 04/28/2023 12:10PM ; [facility] Continue current meds. Keep up the exercise/moving. Get fasting labs prior to next appt. Call sooner if needed. - Last Documented On 04/28/2023 12:10PM ; [facility] Pending Tests Order Diagnosis Results Due Ordering Vidal magana Lab THYROID PANEL (TSH & FREE T4) 10/25/23 PATRICIO CAGLE- C Last Documented On 4 3:52PM ; [facility] Lab VITAMIN D 25-HYDROXY 10/25/23 KRYSTLE QUIROZ PA-C Last Documented On 4 3:52PM ; [facility] Lab LIPID PANEL 10/25/23 PATRICIO WYNN INS PA-C Last Documented On 4 3:52PM ; [facility] Lab CMP 10/25/23 PATRICIO GARCIA PA-C Last Documented On 4 3:52PM ; [facility] Lab CBC WITH DIFF 10/25/23 PATRICIO BROWNING PA-C Last Documented On 4 3:52PM ; [facility] Instructions to patient Intervention and counseling on cessation of tobacco use : Patient recieved smoking cessation handout. Stop vaping Last Documented On 3 12:10PM ; [facility] Assessments Includes: Assessments from this encounter Findings - [E78.49 - Other hyperlipidemia] Hyperlipidemia - Last Documented On 04/28/2023 12:10PM ; [facility] - [E67.3 - Hypervitaminosis D] Hypervitaminosis D - Last Documented On 04/28/2023 12:10PM ; [facility] - [E66.9 - Obesity, unspecified] Obesity - Last Documented On 04/28/2023 12:10PM ; [facility] - [F32.A - Depression, unspecified] Depression - Last Documented On 04/28/2023 12:10PM ; [facility] - [F41.9 - Anxiety disorder, unspecified] Anxiety disorder NOS - Last Documented On 04/28/2023 12:10PM ; [facility] Instructions Includes: Instructions from this encounter Instructions to patient Intervention and counseling on cessation of tobacco use : Patient recieved smoking cessation handout. Stop vaping Last Documented On 12:10PM ; [facility] Medical Equipment - Implanted Devices Includes: Current Devices No Medical Equipment Recorded Medications Includes: Medications discussed during this encounter and other current Medications Discontinued / Stopped on this date PATRICIO QUIROZ PA-C on 11/14/2022 Zithromax Z-Juma 250 MG Oral Tablet Provid er: PATRICIO QUIROZ PA-C Diagnosis: Last Documented On 04/28/2023 11:06AM By DORIS ARMENDARIZ Moose ; [facility] Current Medications (continue as prescribed) Daily Multiple Vitamins Oral Tablet 01/23/2021 Provi leonid: Diagnosis: Last Documented On 01/23/2021 10:38AM By María Nicole Moose ; [facility] Past Medications on file Venlafaxine HCl ER 75 MG Oral Capsule Extended Release 24 Hour 01/22/2024 - 07/20/2024 Provider: PATRICIO QUIROZ PA-C Diagnosis: Depression, unspecified TAKE 1 CAPSULE BY MOUTH EVERY DAY Last Documented On 4 1:29PM By PATRICIO QUIROZ PA-C ; [facility] busPIRone HCl 5 MG Oral Tablet 01/22/2024 - 07/20/2024 Provider: PATRICIO QUIROZ PA-C Diagnosis: Anxiety disorder , unspecified One tablet three times a day Last Documented On 4 1:29PM By PATRICIO QUIROZ PA-C ; [facility] ARIPiprazole 2 MG Oral Tablet 01/22/2024 - 07/20/2024 Provider: PATRICIO QUIROZ PA-C Diagnosis: Depression, unspecified TAKE 1 TABLET BY MOUTH EVERYDAY AT BEDTIME Last Documented On 4 1:29PM By PATRICIO QUIROZ PA-C ; [facility] metFORMIN HCl 500 MG Oral Tablet 01/22/2024 - 07/20/2024 Provider: PATRICIO QUIROZ PA-C Diagnosis: Obesity, unspeci fied TAKE 1 TABLET BY MOUTH TWICE A DAY Last Documented On 4 1:29PM By PATRICIO QUIROZ PA-C ; [facility] Medications Administered Includes: Administered Medications from this encounter No Administered Medications Recorded Vital Signs Includes: Vital Signs from this encounter Vital Name 04/28/2023 12:03P Height (in) 62 Weight (lb) 195 Body Mass Index 35.7 Body Surface Area 1.9 Last Documented: On 04/28/2023 12:03P M ; [facility] Results Includes: Results discussed during this [...] her mood but got a job at [employer] (3:30-midnight M-F) which has taken a lot [...] thing. Continues to stay sober. 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 Weaning off nicotine 03/24/2023 Last Documented On 3 12:03PM ; [facility] Tobacco use 10/05/2018 Last Documented On 3 12:03PM ; [facility] Caffeine use 09/30/2017 Last Documented On 3 12:03PM ; [facility] Procedures and Surgical History Includes: Procedures from this encounter Procedures Code Diagnosis Performing Provider Service L ocation Service Date intervention and counseling on cessation of tobacco use : Patient recieved smoking cessation handout. Stop vaping 4000F Last Documented On 3 12:10PM ; [facility] use of tobacco assessment performed 1000F Last Documented On 3 12:10PM ; [facility] Medical History Includes: Medical History addressed during this encounter Description Last Updated LMP: 04/14/2023 04/28/2023 Last Documented On 3 12:10PM ; [facility] 4 01/22/2021 Last Documented On 3 12:03PM ; [facility] Para 4 01/22/2021 Last Documented On 3 12:03PM ; [facility] TUBAL LIGATION 201209/30/2017 Last Documented On 3 12:03PM ; [facility] Family History Includes: Family History addressed [...] Active Last Documented On 4 1:00PM ; [facility] Encounters Encounter Provider Location Date Check-In Time Check-Out Time Diagnosis TELEHEALTH PATRICIO QUIROZ PA-C [facility] JAKE JULIET 04/28/20 23 11:29AM 12:00PM Anxiety Disorder Nos,Obesity,D epression,Hyp erlipidemia,H ypervitaminos is D Insurance Includes: Active Insurance Policies Plan Name Member ID Group # Subscriber Relationship Effect john Dates 1 - [employer] [id number] MEGHAN BRISENO Self Clinical Notes Includes: Clinical Notes from this encounter * Progress note Date Encounter Last Documented by 04/28/2023 TELEHEALTH Last documented on 04/28/2023; 12:10 PM, PATRICIO QUIROZ PA-C; [facility] Active Problems & Conditions - [...] her mood but got a job at [employer] (3:30-midnight M-F) which has taken a lot [...] thing. Continues to stay sober. 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 Allergies - Penicillins Reaction: , Shortness [...]
--- OUTSIDE RECORDS SUMMARY | 2025-02-13 13:20 | XMS_ITS | Clinical Summary ---
Author Organization [facility] Address [address] [place] [address] Phone Care Team Providers Care Braille Teacher Name Role Phone MILLI CHAPA MD Primary Care Provider [phone] Reason for Visit and Chief Complaint The Chief Complaint is: Med Ck. Pt feels meds are working okay Problems Includes: Problems addressed during this encounter and other active Problems Current Visit Onset Date Resolved Date Provider Conditio n Status Adjustment Disorder with Anxiety 10/06/2017 MILLI CHAPA MD Active Last Documented On 10/06/2017 12:34AM ; [facility] Note: Unchanged Alcohol Use 02/04/2010 Unknown PARUL LORENZANA MD Resolve d Last Documented On 09/09/2010 2:25PM ; [facility] Note: was Closed. Tobacco Use 02/04/2010 Unknown PARUL LORENZANA MD Resolve d Last Documented On 09/09/2010 2:25PM ; [facility] Note: was Closed. Past Visits Onset Date Resolved Date Provider Condition Status Methamphetamine Abuse 03/07/2019 PATRICIO QUIROZ PA-C Active Last Documented On 03/07/2019 3:36PM ; [facility] Note: Clean 02/01/2019. 5 years of snorti ng and smoking. Plan of Treatment - Return to the clinic if condition worsens or new symptoms arise - Last Documented On 01/22/2024 3:08PM ; [facility] - Follow-up visit 6 mo - Last Documented On 01/22/2024 3:08PM ; [facility] - Clinical summary provided to patient . Plan discussed and patient/parent/caregiver states understanding - Last Documented On 01/22/2024 3:08PM ; [facility] Will do labs today and go from there. Discussed can increase metformin if needed; otherwise can try mounjaro (if you are diabetic). Continue other meds. Obtain mammogram. Overdue for PAP smear. Call sooner if needed. ER if condition severe. - Last Documented On 01/22/2024 3:08PM ; [facility] Pending Tests Order Diagnosis Results Due Ordering P rovider Lab THYROID PANEL (TSH & FREE T4) 10/25/23 PATRICIO Worthy Last Documented On 4 3:52PM ; [facility] Lab VITAMIN D 25-HYDROXY 10/25/23 KRYSTLE QUIROZ PA-C Last Documented On 4 3:52PM ; [facility] Lab LIPID PANEL 10/25/23 PATRICIO CAGLE-Zaynab Last Documented On 4 3:52PM ; [facility] Lab CMP 10/25/23 PATIRCIO CAGLE-Zaynab Last Documented On 4 3:52PM ; [facility] Lab CBC WITH DIFF 10/25/23 PATRICIO CAGLE-Zaynab Last Documented On 4 3:52PM ; [facility] Assessments Includes: Assessments from this encounter Findings - [R53.83 - Other fatigue] Fatigue - Last Documented On 01/22/2024 3:08PM ; [facility] - [F32.A - Depression, unspecified] Depression - Last Documented On 01/22/2024 3:08PM ; [facility] - [F43.22 - Adjustment disorder with anxiety] Adjustment disorder with anxiety - Last Documented On 01/22/2024 3:08PM ; [facility] Medical Equipment - Implanted Devices Includes: Current Devices No Medical Equipment Recorded Medications Includes: Medications discussed during this encounter and other current Medications Discontinued / Stopped on this date PATRICIO QUIROZ PA-C on 03/18/2023 Escitalopram Oxalate 10 MG Oral Tablet Pr ovider: PATRICIO QUIROZ PA-C Diagnosis: Last Documented On 01/22/2024 1:00PM By DORIS GALE ; [facility] Venlafaxine HCl ER 37.5 MG O ral Capsule Extended Release 24 Hour Provider: PATRICIO E JENKIN S PA-C Diagnosis: Last Documented On 01/22/2024 1:00PM By DORIS GALE ; [facility] New / Renewed during this visit PATRICIO QUIROZ PA-C on 01/22/2024 Venlafaxine HCl ER 75 MG Oral Capsule Extended Release 24 Hour Provider: PATRICIO Worthy 90 day supply: 90 capsule, 1 refills Diagnosis: Depression, unspecified TAKE 1 CAPSULE BY MOUTH EVERY DAY Pharmacy: [address], [id number] - Last Documented On 4 1:29PM By PATRICIO QUIROZ PA-C ; [facility] busPIRone HCl 5 MG Oral Tablet Provider: PATRICIO Worthy 90 day supply: 270 tablet, 1 refills Diagnosis: Anxiety disorder, unspecified One tablet three times a day Pharmacy: [address], [id number] - Last Documented On 4 1:29PM By PATRICIO QUIROZ PA-C ; [facility] ARIPiprazole 2 MG Oral Tablet Provider: PATRICIO Worthy 90 day supply: 90 tablet, 1 refills Diagnosis: Depression, unspecified TAKE 1 TABLET BY MOUTH EVERY DAY AT BEDTIME Pharmacy: [address], [id number] - Last Documented On 4 1:29PM By PATRICIO QUIROZ PA-C ; [facility] metFORMIN HCl 500 MG Oral Tablet Provider: PATRICIO Worthy 90 day supply: 180 tablet, 1 refills Diagnosis: Obesity, unspecified TAKE 1 TABLET BY MOUTH TWICE A DAY Pharmacy: [address], [address] - Last Documented On 4 1:29PM By PATRICIO QUIROZ PA-C ; [facility] Current Medications (continue as prescribed) Daily Multiple Vitamins Oral Tablet 01/23/2021 Provi leonid: Diagnosis: Last Documented On 01/23/2021 10:38AM By María GALE ; [facility] Medications Administered Includes: [...] 98 Last Documented: On 01/22/2024 1:02PM ; [facility] Results Includes: Results discussed [...] 01/22/2024 Last Documented On 4 3:08PM ; [facility] 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 Weaning off nicotine 03/24/2023 Last Documented On 4 12:57PM ; [facility] Tobacco use 10/05/2018 Last Documented On 4 12:57PM ; [facility] Caffeine use 09/30/2017 Last Documented On 4 12:57PM ; [facility] Procedures and Surgical History Includes: Procedures from this encounter Procedures Code Diagnosis Performing Provider Service L ocation Service Date review of medications documented 1160F Last Documented On 4 1:02PM ; [facility] assessment of suicide risk performed Last Documented On 4 3:06PM ; [facility] screening for adult depression: impressi on and score twelve Last Documented On 4 3:06PM ; [facility] standardized depression screening: posit john for symptoms Last Documented On 4 3:06PM ; [facility] Medical History Includes: Medical History addressed during this encounter Description Last Updated LMP: 01/15/2024 01/22/2024 Last Documented On 4 3:08PM ; [facility] 4 01/22/2021 Last Documented On 4 12:57PM ; [facility] Para 4 01/22/2021 Last Documented On 4 12:57PM ; [facility] TUBAL LIGATION 201209/30/2017 Last Documented On 4 12:57PM ; [facility] Family History Includes: Family History addressed during this encounter Description Last Updated Family history of Cancer Maternal Great Aunt ovarian cancer 08/08/2022 Last Documented On 4 12:57PM ; [facility] Family history of diabetes mellitus Mate rnal Grandmother, Mat Grandfather 08/08/2022 Last Documented On 4 12:57PM ; [facility] Maternal grandmother's history of diabet es mellitus MGM and MGF 08/08/2022 Last Documented On 4 12:57PM ; [facility] Family history unchanged 07/29/2019 Last Documented On 4 12:57PM ; [facility] Fraternal history of asthma 09/30/2017 Last Documented On 4 12:57PM ; [facility] Maternal grandmother's history of family history of cancer BREAST 09/30/2017 Last Documented On 4 12:57PM ; [facility] Paternal history of cholesterol problems 09/30/2017 Last Documented On 4 12:57PM ; [facility] Family history of malignant female breas t neoplasm Maternal Grandmother 10/28/2010 Last Documented On 4 12:57PM ; [facility] Family history of Diabetes 01/01/2010 Last Documented On 4 12:57PM ; [facility] Family medical history of high blood pre ssure 01/01/2010 Last Documented On 4 12:57PM ; [facility] Family medical history of High Cholester ol 01/01/2010 Last Documented On 4 12:57PM ; [facility] Review of Systems Includes: Review [...] Active Last Documented On 4 1:00PM ; [facility] Encounters Encounter Provider Location Date Check-In Time Check-Out Time Diagnosis [facility] 01/22/20 24 12:55PM 1:41PM Fatigue,Adjus tment Disorder with Anxiety,Depre ssion Insurance Includes: Active Insurance Policies Plan Name Member ID Group # Subscriber Relationship Effect john Dates 1 - [employer] [id number] MEGHAN BRISENO Self Clinical Notes Includes: Clinical Notes from this encounter * Progress note Date Encounter Last Documented by 01/22/2024 CHECK UP Last documented on 01/22/2024; 3:08 PM, PATRICIO Worthy; [facility] Active Problems & [...] 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 Allergies - Penicillins Reaction: , Shortness [...] for malignant neoplasm of breast Radiology @ [facility]/*MAMMOGRAPHY: Screening Mammogram Instructions: Additional images/ultrasounds if [...] and for adult impression and score twelve; [17178] Established outpatient, medically appropriate H&P, moderate level decision making, 30-39 minutes. Health Reminders - Depression Screening satisfied 01/22/2024.
--- OUTSIDE RECORDS SUMMARY | 2025-02-13 13:20 | XMS_ITS ---
Author Organization [facility] Address [address] [place] [address] Phone Care Team Providers Care Architecture Manager Name Role Phone MILLI CHAPA MD Primary Care Provider [phone] Problems Includes: Active, inactive, and resolved Problems All Visits Onset Date Resolved Date Provider Condition S tatus Methamphetamine Abuse 03/07/2019 PATRICIO QUIROZ PA-C Active Last Documented On 03/07/2019 3:36PM ; [facility] Note: Clean 02/01/2019. 5 years of snorti ng and smoking. Adjustment Disorder with Anxiety 10/06/2017 MILLI CHAPA MD Active Last Documented On 10/06/2017 12:34AM ; [facility] Note: Unchanged Alcohol Use 02/04/2010 Unknown PARUL LORENZANA MD Resolved Last Documented On 09/09/2010 2:25PM ; [facility] Note: was Closed. History of Abnormal Pap Smear 02/04/2010 Unknown PARUL LORENZANA MD Resolved Last Documented On 09/09/2010 2:25PM ; [facility] Note: was Closed. History of Thromboembolic Disease 02/04/2010 Unknown PARUL LORENZANA MD Resolved Last Documented On 09/09/2010 2:25PM ; [facility] Note: was Closed. Reported Previous Std 02/04/2010 Unknown PARUL LORENZANA MD Resolved Last Documented On 09/09/2010 2:25PM ; [facility] Note: was Closed. Smoking During 02/04/2010 Unknown PARUL LORENZANA MD Resolved Last Documented On 09/09/2010 2:25PM ; [facility] Note: was Closed. Tobacco Use 02/04/2010 Unknown PARUL LORENZANA MD Resolved Last Documented On 09/09/2010 2:25PM ; [facility] Note: was Closed. [...] 01/22/2024 Last Documented On 4 3:08PM ; [facility] Ordered Clinical summary pro vided to patient . Plan discussed and patient/parent/caregiver states understanding CHECK UP with PATRICIO QUIROZ PA-C 01/22/2024 Last Documented On 4 3:08PM ; [facility] Ordered follow-up visit 6 mo CHECK UP with CARMELLA QUIROZ PA-C 01/22/2024 Last Documented On 4 3:08PM ; [facility] Ordered return to the clinic if condition worsens or new symptoms arise CHECK UP with PATRICIO QUIROZ PA-C 01/22/2024 Last Documented On 4 3:08PM ; [facility] Continue current meds. Keep up the exercise/moving. Get fasting labs prior to next appt. Call sooner if needed TELEHEALTH with PATRICIO QUIROZ PA-C 04/28/2023 Last Documented On 3 12:10PM ; [facility] Ordered follow-up visit 4-6 mo TELEHEALTH with Mat QUIROZ PA-C 04/28/2023 Last Documented On 3 12:10PM ; [facility] Ordered return to the clinic if condition worsens or new symptoms arise TELEHEALTH with PATRICIO QUIROZ PA-C 04/28/2023 Last Documented On 3 12:10PM ; [facility] Stop the Lexapro; [...] 03/24/2023 Last Documented On 3 11:15AM ; [facility] Ordered follow-up visit 1-2 mo TELEHEALTH with Mat QUIROZ PA-C 03/24/2023 Last Documented On 3 11:15AM ; [facility] Ordered return to the clinic if condition worsens or new symptoms arise TELEHEALTH with PATRICIO QUIROZ PA-C 03/24/2023 Last Documented On 3 11:15AM ; [facility] Will do labs and get a sleep study and go from there. Continue current meds for now. If testing negative may need to increase lexapro to 15mg. Discussed next visit can be via telehealth. Call sooner if needed. ER if condition severe CHECK UP with PATRICIO QUIROZ PA-C 08/08/2022 Last Documented On 2 10:49AM ; [facility] Ordered Clinical summary pro vided to patient . Plan discussed and patient/parent/caregiver states understanding CHECK UP with PATRICIO QUIROZ PA-C 08/08/2022 Last Documented On 2 10:49AM ; [facility] Ordered follow-up visit 1-2 mo CHECK UP with ABBIE QUIROZ PA-C 08/08/2022 Last Documented On 2 10:49AM ; [facility] Ordered return to the clinic if condition worsens or new symptoms arise CHECK UP with PATRICIO QUIROZ PA-C 08/08/2022 Last Documented On 2 10:49AM ; [facility] Decrease Effexor to [...] 03/20/2022 Last Documented On 2 12:50PM ; [facility] Ordered Clinical summary pro vided to patient . Plan discussed and patient/parent/caregiver states understanding CHECK UP with PATRICIO QUIROZ PA-C 03/20/2022 Last Documented On 2 12:50PM ; [facility] Ordered follow-up visit 4-6 wks CHECK UP with TAWANDA QUIROZ PA-C 03/20/2022 Last Documented On 2 12:50PM ; [facility] Ordered return to the clinic if condition worsens or new symptoms arise CHECK UP with PATRICIO CAGLE-C 03/20/2022 Last Documented On 2 12:50PM ; [facility] Stop the lexapro [...] 02/17/2022 Last Documented On 2 11:47AM ; [facility] Ordered Clinical summary pro vided to patient . Plan discussed and patient/parent/caregiver states understanding CHECK UP with PATRICIO QUIROZ PA-C 02/17/2022 Last Documented On 2 11:47AM ; [facility] Ordered follow-up visit 4 wks CHECK UP with KRYSTLE QUIROZ PA-C 02/17/2022 Last Documented On 2 11:47AM ; [facility] Ordered return to the clinic if condition worsens or new symptoms arise CHECK UP with PATRICIO QUIROZ PA-C 02/17/2022 Last Documented On 2 11:47AM ; [facility] Will continue current meds. See what labs show today with thyroid. Get ultrasound of your thyroid. Continue smoking cessation! Call sooner if needed CHECK UP with PATRICIO CAGLE-Zaynab 11/18/2021 Last Documented On 1 11:36AM ; [facility] Ordered follow-up visit 3-4 mo CHECK UP with ABBIE CAGLE-Zaynab 11/18/2021 Last Documented On 1 11:36AM ; [facility] Ordered return to the clinic if condition worsens or new symptoms arise CHECK UP with PATRICIO QUIROZ PA-C 11/18/2021 Last Documented On 1 11:36AM ; [facility] Get fasting labs to check th yroid. If normal and lump still present will get thyroid ultrasound. Decrease lexapro to 10mg daily (see if it helps with weight gain). Add Wellbutrin--helps with anxiety/depression and smoking cessation. Continue buspar 3x/day. Call sooner if needed CHECK UP with PATRICIO QUIROZ PA-C 10/15/2021 Last Documented On 1 12:48PM ; [facility] Ordered Clinical summary pro vided to patient . Plan discussed and patient/parent/caregiver states understanding CHECK UP with PATRICIO QUIROZ PA-C 10/15/2021 Last Documented On 1 12:48PM ; [facility] Ordered follow-up visit 1 mo CHECK UP with CARMELLA QUIROZ PA-C 10/15/2021 Last Documented On 1 12:48PM ; [facility] Ordered return to the clinic if condition worsens or new symptoms arise CHECK UP with PATRICIO QUIROZ PA-C 10/15/2021 Last Documented On 1 12:48PM ; [facility] Ordered return to the clinic if condition worsens or new symptoms arise WELL WOMAN - ESTABLISHED PT with MORGAN PAZ [facility]- 01/22/2021 Last Documented On 1 9:45AM ; [facility] Ordered patient will call fo r appointment as needed PROBLEM VISIT with MORGAN PAZ [facility]- 07/29/2019 Last Documented On 9 10:53AM ; [facility] Ordered return to the clinic if condition worsens or new symptoms arise PROBLEM VISIT with MORGAN PAZ [facility]- 07/29/2019 Last Documented On 9 10:53AM ; [facility] Ordered Clinical summary pro vided to patient . Plan discussed and patient/parent/caregiver states understanding GENERAL OFFICE VISIT with PATRICIO QUIROZ PA-C 03/07/2019 Last Documented On 9 3:39PM ; [facility] Ordered follow-up visit 6 mo . Increase the lexapro to 20mg daily. Continue to take the Buspar 10mg twice a day. Contact office if new symptoms/problems arise GENERAL OFFICE VISIT with PATRICIO QUIROZ PA-C 03/07/2019 Last Documented On 9 3:39PM ; [facility] Ordered follow-up visit in 1 month WELL WOMAN EXAM with MORGAN PAZ [facility]- 10/05/2018 Last Documented On 8 10:09AM ; [facility] Ordered return to the clinic if condition worsens or new symptoms arise WELL WOMAN EXAM with MORGAN PAZ [facility]- 10/05/2018 Last Documented On 8 10:09AM ; [facility] Pending Tests Order Diagnosis Results Due Ordering P rocarlosder Lab THYROID PANEL (TSH & FREE T4) 10/25/23 PATRICIO Worthy Last Documented On 4 3:52PM ; [facility] Lab VITAMIN D 25-HYDROXY 10/25/23 KRYSTLE QUIROZ PA-C Last Documented On 4 3:52PM ; [facility] Lab LIPID PANEL 10/25/23 PATRICIO MARTINEZ PA-C Last Documented On 4 3:52PM ; [facility] Lab CMP 10/25/23 PATRICIO GARCIA PA-C Last Documented On 4 3:52PM ; [facility] Lab CBC WITH DIFF 10/25/23 PATRICIO BROWNING PA-C Last Documented On 4 3:52PM ; [facility] Referrals To Diagnosis Psychologist Adjustment disor leonid with anxiety Note: [facility] [place] Last Documented On 8 6:29AM ; [facility] Instructions to patient Intervention and counseling on cessation of tobacco use : Patient recieved smoking cessation handout. Stop vaping Last Documented On 3 12:10PM ; [facility] Intervention and counseling on cessation of tobacco use : Patient recieved smoking cessation handout Last Documented On 3 10:48AM ; [facility] Intervention and counseling on cessation of tobacco use : Patient recieved smoking cessation handout Last Documented On 2 10:37AM ; [facility] Intervention and counseling on cessation of tobacco use : Patient recieved smoking cessation handout Last Documented On 1 9:48AM ; [facility] Intervention and counseling on cessation of tobacco use Last Documented On 1 9:16AM ; [facility] Intervention and counseling on cessation of tobacco use : Patient recieved smoking cessation handout Last Documented On 1 12:44PM ; [facility] Intervention and counseling on cessation of tobacco use Last Documented On 1 9:20AM ; [facility] Intervention and counseling on cessation of tobacco use Last Documented On 1 9:01AM ; [facility] Intervention and counseling on cessation of tobacco use Last Documented On 8 9:51AM ; [facility] Education and Decision Aids were provided during [...] procedure Last Documented On 0 2:39PM ; [facility] INFORMED CONSENT DISCUSSION: Colposcopy was discussed in detail including risk of post procedure bleeding. Patient is not to have intercourse for 5 days following the procedure. Patient expressed understanding of the above and consented to the procedure Last Documented On 0 3:51PM ; [facility] INFORMED CONSENT DISCUSSION: Colposcopy was discussed in detail including risk of post procedure bleeding. Patient is not to have intercourse for 5 days following the procedure. Patient expressed understanding of the above and consented to the procedure Last Documented On 0 2:05PM ; [facility] Smoking cessation advised Last Documented On 0 11:32AM ; [facility] Bacterial Vaginosis Informat ion Sheet Given H1N1 and seasonal flu vaccine advised. SAB precautions reviewed Last Documented On 0 11:31AM ; [facility] New OB form given to patient Last Documented On 0 11:31AM ; [facility] Assessments Includes: Assessments for all patient encounters Findings Encounter Date Adjustment disorder with anxiety CHECK UP with Mat QUIROZ PA-C 01/22/2024 Last Documented On 4 3:08PM ; [facility] Depression CHECK UP with PATRICIO E QUIROZ P A-C 01/22/2024 Last Documented On 4 3:08PM ; [facility] Fatigue CHECK UP with PATRICIO E QUIROZ P A-C 01/22/2024 Last Documented On 4 3:08PM ; [facility] Anxiety disorder NOS TELEHEALTH with PATRICIO Olayinka GRACE NKINS PA-C 04/28/2023 Last Documented On 3 12:10PM ; [facility] Depression TELEHEALTH with PATRICIO E QUIROZ PA-C 04/28/2023 Last Documented On 3 12:10PM ; [facility] Hyperlipidemia TELEHEALTH with PATRICIO E QUIROZ PA-C 04/28/2023 Last Documented On 3 12:10PM ; [facility] Hypervitaminosis D TELEHEALTH with PATRICIO Olayinka WYNN INS PA-C 04/28/2023 Last Documented On 3 12:10PM ; [facility] Obesity TELEHEALTH with PATRICIO E QUIROZ PA-C 04/28/2023 Last Documented On 3 12:10PM ; [facility] Anxiety disorder NOS TELEHEALTH with PATRICIO Olayinka GRACE NKINS PA-C 03/24/2023 Last Documented On 3 11:15AM ; [facility] Depression TELEHEALTH with PATRICIO E QUIROZ PA-C 03/24/2023 Last Documented On 3 11:15AM ; [facility] Obesity TELEHEALTH with PATRICIO E QUIROZ PA-C 03/24/2023 Last Documented On 3 11:15AM ; [facility] Adjustment disorder with anxiety CHECK UP with Mat QUIROZ PA-C 08/08/2022 Last Documented On 2 10:49AM ; [facility] Depression CHECK UP with PATRICIO E QUIROZ P A-C 08/08/2022 Last Documented On 2 10:49AM ; [facility] Fatigue CHECK UP with PATRICIO E QUIROZ P A-C 08/08/2022 Last Documented On 2 10:49AM ; [facility] Primary snoring CHECK UP with PATRICIO E QUIROZ P A-C 08/08/2022 Last Documented On 2 10:49AM ; [facility] Adjustment disorder with anxiety CHECK UP with K RISTA E QUIROZ PA-C 03/20/2022 Last Documented On 2 12:50PM ; [facility] Depression CHECK UP with PATRICIO E QUIROZ P A-C 03/20/2022 Last Documented On 2 12:50PM ; [facility] Adjustment disorder with anxiety CHECK UP with K RISTA E QUIROZ PA-C 02/17/2022 Last Documented On 2 11:47AM ; [facility] Depression CHECK UP with PATRICIO E QUIROZ P A-C 02/17/2022 Last Documented On 2 11:47AM ; [facility] Adjustment disorder with anxiety CHECK UP with K RISTA E QUIROZ PA-C 11/18/2021 Last Documented On 1 11:36AM ; [facility] Dysphagia CHECK UP with PATRICIO E QUIROZ P A-C 11/18/2021 Last Documented On 1 11:36AM ; [facility] Adjustment disorder with anxiety CHECK UP with K RISTA E QUIROZ PA-C 10/15/2021 Last Documented On 1 12:48PM ; [facility] [Z12.31 - Encounter for scre ening mammogram for malignant neoplasm of breast] Screening mammogram for malignant neoplasm of breast CHECK UP with REBECA CAGLE-C 06/12/2021 Last Documented On 1 3:43PM ; [facility] [Z80.3 - Family history of m alignant neoplasm of breast] Family history of breast neoplasm malignant CHECK UP with REBECA CAGLE-C 06/12/2021 Last Documented On 1 3:43PM ; [facility] [F41.9 - Anxiety disorder, u nspecified] anxiety disorder NOS PROBLEM VISIT with REBECA G JORGE LUIS PA-C 05/13/2021 Last Documented On 1 11:57AM ; [facility] [L30.9 - Dermatitis, unspeci fied] dermatitis PROBLEM VISIT with REBECA G JORGE LUIS PA-C 05/13/2021 Last Documented On 1 11:57AM ; [facility] [M54.9 - Dorsalgia, unspecif ied] backache PROBLEM VISIT with REBECA G JORGE LUIS PA-C 05/13/2021 Last Documented On 1 11:57AM ; [facility] [Z00.01 - [facility] with abnormal findings] routine examination PROBLEM VISIT with REBECA Saleem JORGE LUIS PA-C 05/13/2021 Last Documented On 1 11:57AM ; [facility] Tinea corporis bilateral lower legs PROBLEM VISI T with MILLI CHAPA MD 01/23/2021 Last Documented On 1 6:55AM ; [facility] Winter itch PROBLEM VISIT with MILLI GARCIA MD 01/23/2021 Last Documented On 1 6:55AM ; [facility] Routine gynecological exam w ith cervical pap smear WELL WOMAN - ESTABLISHED PT with MORGAN PAZ PMHNP-BC [employer] 01/22/2021 Last Documented On 1 9:45AM ; [facility] Screen malignant neoplasm cervix WELL WO MAN - ESTABLISHED PT with MORGAN THOMPSONGRAVE PMHNP-BC [employer] 01/22/2021 Last Documented On 1 9:45AM ; [facility] SCREENING FOR STD WELL WOMAN - ESTABLI SHED PT with MORGAN Virk JACKSON PMHNP-BC [employer]-BC 01/22/2021 Last Documented On 1 9:45AM ; [facility] Acute sinusitis PROBLEM VISIT with MORGAN SCHERER PMHNP-BC [employer] 07/29/2019 Last Documented On 9 10:53AM ; [facility] Acute upper respiratory infection PROBLE M VISIT with MORGAN PAZ PMHNP-BC [employer] 07/29/2019 Last Documented On 9 10:53AM ; [facility] Adjustment disorder with anxiety GENERAL OFFICE VISIT with PATRICIO QUIROZ PA-C 03/07/2019 Last Documented On 9 3:39PM ; [facility] Routine history and physical GENERAL OFF ICE VISIT with PATRICIO QUIROZ PA-C 03/07/2019 Last Documented On 9 3:39PM ; [facility] Adjustment disorder with anxiety WELL WO MAN EXAM with MORGAN THOMPSONGRAVE PMHNP-BC [employer] 10/05/2018 Last Documented On 8 10:09AM ; [facility] Routine gynecological exam w ith cervical pap smear WELL WOMAN EXAM with MORGAN THOMPSONGRAVE PMHNP-BC [employer] 10/05/2018 Last Documented On 8 10:09AM ; [facility] Screen malignant neoplasm cervix WELL WO MAN EXAM with MORGAN THOMPSONGRAVE PMHNP-BC [employer] 10/05/2018 Last Documented On 8 10:09AM ; [facility] SCREENING FOR STD WELL WOMAN EXAM with MORGAN THOMPSONGRAVE PMHNP-BC [employer]-BC 10/05/2018 Last Documented On 8 10:09AM ; [facility] Adjustment disorder with anxiety NEW PATIENT VIS IT with MILLI CHAPA MD 09/30/2017 Last Documented On 7 12:35AM ; [facility] Dependence on nicotine in ci garettes - uncomplicated 1.5 PPD FOR 12 YRS NEW PATIENT VISIT with MILLI CHAPA MD 09/30/2017 Last Documented On 7 12:35AM ; [facility] Cervical dysplasia--severe (SAW III) LEEP with Eddie LORENZANA MD 10/28/2010 Last Documented On 0 2:43PM ; [facility] Severe cervical dysplasia (SAW III) LEEP with SA RA Tex LORENZANA MD 10/28/2010 Last Documented On 0 2:43PM ; [facility] Contraceptive management 1 MONTH CHECK with PARUL LORENZANA MD 10/11/2010 Last Documented On 0 2:43PM ; [facility] Assessment of abnormal Pap s mear of cervix COLPOSCOPY with PARUL LORENZANA MD 09/23/2010 Last Documented On 0 3:56PM ; [facility] Assessment of abnormal Pap s mear: high grade squamous intraepithelial lesion present COLPOSCOPY with PARUL LORENZANA MD 09/23/2010 Last Documented On 0 3:56PM ; [facility] Bacterial vaginosis COLPOSCOPY with PARUL Barragan MD 09/23/2010 Last Documented On 0 3:56PM ; [facility] Contraceptive management COLPOSCOPY with PARUL LORENZANA MD 09/23/2010 Last Documented On 0 3:56PM ; [facility] Contraceptive management: In sertion of IUD POST VISIT with PARUL LORENZANA MD 09/05/2010 Last Documented On 0 3:41PM ; [facility] Normal checkup (6 - 42 wk) RETURN OB EX AM with PARUL LORENZANA MD 07/11/2010 Last Documented On 0 9:12AM ; [facility] Normal checkup (6 - 42 wk) * PHONE CALL with PARUL LORENZANA MD 07/08/2010 Last Documented On 0 2:58PM ; [facility] Normal checkup (6 - 42 wk) RETURN OB EX AM with PARUL LORENZANA MD 07/04/2010 Last Documented On 0 8:52AM ; [facility] Normal checkup (6 - 42 wk) [facility]U [facility] Last Documented On 0 9:47AM ; [facility] Normal checkup (6 - 42 wk) * PHONE CALL with PARUL LORENZANA MD 06/25/2010 Last Documented On 0 1:58PM ; [facility] Normal checkup (6 - 42 wk) [Pat ient Encounter] with PARUL LORENZANA MD 06/25/2010 Last Documented On 0 2:44PM ; [facility] Normal checkup (6 - 42 wk) RETURN OB EX AM with PARUL LORENZANA MD 06/20/2010 Last Documented On 0 10:11AM ; [facility] Normal checkup (6 - 42 wk) RETURN OB EX AM with PARUL LORENZANA MD 06/13/2010 Last Documented On 0 3:15PM ; [facility] Normal checkup (6 - 42 wk) RETU RN [facility]2010 Last Documented On 0 10:51AM ; [facility] Normal checkup (6 - 42 wk) * PHONE CALL with PARUL LORENZANA MD 05/21/2010 Last Documented On 0 1:29PM ; [facility] Normal checkup (6 - 42 wk) * PHONE CALL with PARUL LORENZANA MD 04/26/2010 Last Documented On 0 1:27PM ; [facility] Normal checkup (6 - 42 wk) RETURN OB EX AM with PARUL LORENZANA MD 04/09/2010 Last Documented On 0 10:32AM ; [facility] Assessment of abnormal Pap s mear of cervix [facility] COLPOSCOPY with PARUL LORENZANA MD 03/14/2010 Last Documented On 0 2:28PM ; [facility] Normal checkup (6 - 42 wk) RETU RN OB [facility] 03/11/2010 Last Documented On 0 8:54AM ; [facility] Normal checkup (6 - 42 wk) NEW OB EXAM with PARUL LORENZANA MD 02/04/2010 Last Documented On 0 2:53PM ; [facility] Amenorrhea MISSED MENSES [facility] 12/27/2009 Last Documented On 0 10:55AM ; [facility] Instructions Includes: Instructions for all patient encounters Instructions to patient Intervention and counseling on cessation of tobacco use : Patient recieved smoking cessation handout. Stop vaping Last Documented On 3 12:10PM ; [facility] Intervention and counseling on cessation of tobacco use : Patient recieved smoking cessation handout Last Documented On 3 10:48AM ; [facility] Intervention and counseling on cessation of tobacco use : Patient recieved smoking cessation handout Last Documented On 2 10:37AM ; [facility] Intervention and counseling on cessation of tobacco use : Patient recieved smoking cessation handout Last Documented On 1 9:48AM ; [facility] Intervention and counseling on cessation of tobacco use Last Documented On 1 9:16AM ; [facility] Intervention and counseling on cessation of tobacco use : Patient recieved smoking cessation handout Last Documented On 1 12:44PM ; [facility] Intervention and counseling on cessation of tobacco use Last Documented On 1 9:20AM ; [facility] Intervention and counseling on cessation of tobacco use Last Documented On 1 9:01AM ; [facility] Intervention and counseling on cessation of tobacco use Last Documented On 8 9:51AM ; [facility] Education and Decision Aids were provided during [...] procedure Last Documented On 0 2:39PM ; [facility] INFORMED CONSENT DISCUSSION: Colposcopy was discussed in detail including risk of post procedure bleeding. Patient is not to have intercourse for 5 days following the procedure. Patient expressed understanding of the above and consented to the procedure Last Documented On 0 3:51PM ; [facility] INFORMED CONSENT DISCUSSION: Colposcopy was discussed in detail including risk of post procedure bleeding. Patient is not to have intercourse for 5 days following the procedure. Patient expressed understanding of the above and consented to the procedure Last Documented On 0 2:05PM ; [facility] Smoking cessation advised Last Documented On 0 11:32AM ; [facility] Bacterial Vaginosis Informat ion Sheet Given H1N1 and seasonal flu vaccine advised. SAB precautions reviewed Last Documented On 0 11:31AM ; [facility] New OB form given to patient Last Documented On 0 11:31AM ; [facility] Medical Equipment - Implanted Devices Includes: Current and historical Devices No Medical Equipment Recorded Medications Includes: Current and historical Medications Current Medications (continue as prescribed) Daily Multiple Vitamins Oral Tablet 01/23/2021 Provi leonid: Diagnosis: Last Documented On 01/23/2021 10:38AM By María GALE ; [facility] Past Medications on file Venlafaxine HCl ER 75 MG Oral Capsule Extended Release 24 Hour 01/22/2024 - 07/20/2024 Provider: PATRICIO QIUROZ PA-C Diagnosis: Depression, unspecified TAKE 1 CAPSULE BY MOUTH EVERY DAY Last Documented On 4 1:29PM By PATRICIO QUIROZ PA-C ; [facility] busPIRone HCl 5 MG Oral Tablet 01/22/2024 - 07/20/2024 Provider: PATRICIO QUIROZ PA-C Diagnosis: Anxiety disorder , unspecified One tablet three times a day Last Documented On 4 1:29PM By PATRICIO QUIROZ PA-C ; [facility] ARIPiprazole 2 MG Oral Tablet 01/22/2024 - 07/20/2024 Provider: PATRICIO QUIROZ PA-C Diagnosis: Depression, unspecified TAKE 1 TABLET BY MOUTH EVERYDAY AT BEDTIME Last Documented On 4 1:29PM By PATRICIO QUIROZ PA-C ; [facility] metFORMIN HCl 500 MG Oral Tablet 01/22/2024 - 07/20/2024 Provider: PATRICIO QUIROZ PA-C Diagnosis: Obesity, unspeci fied TAKE 1 TABLET BY MOUTH TWICE A DAY Last Documented On 4 1:29PM By PATRICIO QUIROZ PA-C ; [facility] metFORMIN HCl 500 MG Oral Tablet 12/25/2023 - 01/22/2024 Provider: PATRICIO QUIROZ PA-C Diagnosis: Obesity, unspeci fied TAKE 1 TABLET BY MOUTH TWICE A DAY Last Documented On 4 1:16PM By PATRICIO QUIROZ PA-C ; [facility] busPIRone HCl 5 MG Oral Tablet 12/24/2023 - 01/22/2024 Provider: PATRICIO QUIROZ PA-C Diagnosis: Anxiety disorder , unspecified TAKE 1 TABLET BY MOUTH THREE TIMES A DAY PT NEEDS APPT Last Documented On 4 1:15PM By PATRICIO QUIROZ PA-C ; [facility] ARIPiprazole 2 MG Oral Tablet 12/21/2023 - 01/22/2024 Provider: PATRICIO QUIROZ PA-C Diagnosis: Depression, unspecified TAKE 1 TABLET BY MOUTH EVERYDAY AT BEDTIME Last Documented On 4 1:15PM By PATRICIO QUIROZ PA-C ; [facility] Venlafaxine HCl ER 75 MG Oral Capsule Extended Release 24 Hour 12/21/2023 - 01/22/2024 Provider: PATRICIO QUIROZ PA-C Diagnosis: Depression, unspecified TAKE 1 CAPSULE BY MOUTH EVERY DAY Last Documented On 4 1:14PM By PATRICIO QUIROZ PA-C ; [facility] busPIRone HCl 5 MG Oral Tablet 11/24/2023 - 12/24/2023 Provider: PATRICIO QUIROZ PA-C Diagnosis: Anxiety disorder , unspecified TAKE 1 TABLET BY MOUTH THREE TIMES A DAY Pt needs appt Last Documented On 4 9:16PM By PATRICIO QUIROZ PA-C ; [facility] busPIRone HCl 5 MG Oral Tablet 10/22/2023 - 11/24/2023 Provider: PATRICIO QUIROZ PA-C Diagnosis: Anxiety disorder , unspecified TAKE 1 TABLET BY MOUTH THREE TIMES A DAY. Pt needs 6 mo appt in Oct Last Documented On 4 8:43AM By PATRICIO QUIROZ PA-C ; [facility] Venlafaxine HCl ER 75 MG Oral Capsule Extended Release 24 Hour 09/21/2023 - 12/21/2023 Provider: PATRICIO QUIROZ PA-C Diagnosis: Depression, unspecified TAKE 1 CAPSULE BY MOUTH EVER Y DAY Pt needs 6 mo appt in Oct. Last Documented On 4 1:06PM By PATRICIO QUIROZ PA-C ; [facility] metFORMIN HCl 500 MG Oral Tablet 09/21/2023 - 12/25/2023 Provider: PATRICIO QUIROZ PA-C Diagnosis: Obesity, unspeci fied TAKE 1 TABLET BY MOUTH TWICE A DAY. Pt needs 6 mo appt in Oct. Last Documented On 4 9:15AM By PATRICIO QUIROZ PA-C ; [facility] ARIPiprazole 2 MG Oral Tablet 09/17/2023 - 12/21/2023 Provider: PATRICIO QUIROZ PA-C Diagnosis: Depression, unspecified TAKE 1 TABLET BY MOUTH EVERYDAY AT BEDTIME Last Documented On 4 5:11PM By PATRICIO QUIROZ PA-C ; [facility] ARIPiprazole 2 MG Oral Tablet 06/15/2023 - 09/17/2023 Provider: PATRICIO QUIROZ PA-C Diagnosis: Depression, unspecified TAKE 1 TABLET BY MOUTH EVERYDAY AT BEDTIME Last Documented On 3 9:51AM By PATRICIO QUIROZ PA-C ; [facility] Venlafaxine HCl ER 75 MG Oral Capsule Extended Release 24 Hour 06/07/2023 - 09/21/2023 Provider: PATRICIO QUIROZ PA-C Diagnosis: Depression, unspecified TAKE 1 CAPSULE BY MOUTH EVERY DAY Last Documented On 3 10:03AM By PATRICIO QUIROZ PA-C ; [facility] busPIRone HCl 5 MG Oral Tablet 04/30/2023 - 10/22/2023 Provider: PATRICIO QUIROZ PA-C Diagnosis: Anxiety disorder , unspecified TAKE 1 TABLET BY MOUTH THREE TIMES A DAY Last Documented On 3 5:31PM By PATRICIO QUIROZ PA-C ; [facility] Venlafaxine HCl ER 75 MG Oral Capsule Extended Release 24 Hour 03/24/2023 - 06/07/2023 Provider: PATRICIO QUIROZ PA-C Diagnosis: Depression, unspecified 1 capsule daily; this is an increase. Last Documented On 3 9:11AM By PATRICIO QUIROZ PA-C ; [facility] metFORMIN HCl 500 MG Oral Tablet 03/24/2023 - 09/21/2023 Provider: PATRICIO QUIROZ PA-C Diagnosis: Obesity, unspeci fied One tablet twice a day Last Documented On 3 10:03AM By PATRICIO QUIROZ PA-C ; [facility] ARIPiprazole 2 MG Oral Tablet 03/24/2023 - 06/15/2023 Provider: PATRICIO QUIROZ PA-C Diagnosis: Depression, unspecified TAKE 1 TABLET BY MOUTH EVERYDAY AT BEDTIME Last Documented On 3 11:35AM By PATRICIO QUIROZ PA-C ; [facility] Escitalopram Oxalate 10 MG Oral Tablet 03/18/2023 - 01/22/2024 Provider: PATRICIO QUIROZ PA-C Diagnosis: TAKE 1 TABLET BY MOUTH EVERY DAY PT NEEDS APPT! Last Documented On 01/22/2024 1:00PM By DORIS GALE ; [facility] ARIPiprazole 2 MG Oral Tablet 03/18/2023 - 03/24/2023 Provider: PATRICIO QUIROZ PA-C Diagnosis: Depression, unspecified TAKE 1 TABLET BY MOUTH EVERY DAY AT BEDTIME PT NEEDS APPT BEFORE REFILLS. Last Documented On 3 11:04AM By PATRICIO QUIROZ PA-C ; [facility] Venlafaxine HCl ER 37.5 MG Oral Capsule Extended Release 24 Hour 03/16/2023 - 01/22/2024 Provider: PATRICIO QUIROZ PA-C Diagnosis: TAKE 1 CAPSULE BY MOUTH EVER Y DAY PT NEEDS APPT BEFORE ANY REFILLS! Last Documented On 01/22/2024 1:00PM By DORIS GALE ; [facility] Escitalopram Oxalate 10 MG Oral Tablet 02/13/2023 - 03/18/2023 Provider: PATRICIO QUIROZ PA-C Diagnosis: TAKE 1 TABLET BY MOUTH EVERY DAY Pt needs appt! Last Documented On 3 8:59PM By PATRICIO QURIOZ PA-C ; [facility] Venlafaxine HCl ER 37.5 MG Oral Capsule Extended Release 24 Hour 02/13/2023 - 03/16/2023 Provider: PATRICIO QUIROZ PA-C Diagnosis: TAKE 1 CAPSULE BY MOUTH EVERY DAY Pt needs appt! Last Documented On 3 9:31AM By PATRICIO QUIROZ PA-C ; [facility] ARIPiprazole 2 MG Oral Tablet 02/13/2023 - 03/18/2023 Provider: PATRICIO QUIROZ PA-C Diagnosis: Depression, unspecified TAKE 1 TABLET BY MOUTH EVERY DAY AT BEDTIME pt needs appt before refills. Last Documented On 3 8:59PM By PATRICIO QUIROZ PA-C ; [facility] Zithromax Z-Juma 250 MG Oral Tablet 11/14/2022 - 04/28/2023 Provider: PATRICIO QUIROZ PA-C Diagnosis: Take as directed. Last Documented On 04/28/2023 11:06AM By DORIS GALE ; [facility] busPIRone HCl 5 MG Oral Tablet 10/27/2022 - 04/30/2023 Provider: PATRICIO QUIROZ PA-C Diagnosis: Anxiety disorder , unspecified TAKE 1 TABLET BY MOUTH THREE TIMES A DAY Last Documented On 3 12:30PM By PATRICIO QUIROZ PA-C ; [facility] Effexor XR 37.5 MG Oral Capsule Extended Release 24 Hour 08/08/2022 - 02/13/2023 Provider: PATRICIO QUIROZ PA-C Diagnosis: 1 capsule daily Last Documented On 3 12:21PM By PATRICIO QUIROZ PA-C ; [facility] ARIPiprazole 2 MG Oral Tablet 08/08/2022 - 02/13/2023 Provider: PATRICIO QUIROZ PA-C Diagnosis: Depression, unspecified TAKE 1 TABLET BY MOUTH AT BEDTIME Last Documented On 3 12:21PM By PATRICIO QUIROZ PA-C ; [facility] Escitalopram Oxalate 10 MG Oral Tablet 08/08/2022 - 02/13/2023 Provider: PATRICIO QUIROZ PA-C Diagnosis: TAKE 1 TABLET BY MOUTH EVERY DAY Last Documented On 3 12:22PM By PATRICIO QUIROZ PA-C ; [facility] Escitalopram Oxalate 10 MG Oral Tablet 07/07/2022 - 08/08/2022 Provider: PATRICIO QUIROZ PA-C Diagnosis: TAKE 1 TABLET BY MOUTH EVERY DAY pt needs appt Last Documented On 2 10:40AM By PATRICIO QUIROZ PA-C ; [facility] ARIPiprazole 2 MG Oral Tablet 06/17/2022 - 08/08/2022 Provider: PATRICIO QUIROZ PA-C Diagnosis: Depression, unspecified TAKE 1 TABLET BY MOUTH AT BE DTIME NEEDS APPT!! Last Documented On 2 10:40AM By PATRICIO QUIROZ PA-C ; [facility] Venlafaxine HCl ER 37.5 MG Oral Capsule Extended Release 24 Hour 06/17/2022 - 08/08/2022 Provider: PATRICIO QUIROZ PA-C Diagnosis: TAKE 1 CAPSULE BY MOUTH EVERY DAY Pt needs appt Last Documented On 08/08/2022 10:14AM By DORIS GALE ; [facility] ARIPiprazole 2 MG Oral Tablet 05/27/2022 - 06/17/2022 Provider: PATRICIO QUIROZ PA-C Diagnosis: Depression, unspecified TAKE 1 TABLET BY MOUTH AT BE DTIME NEEDS APPT!! Last Documented On 2 9:09AM By PATRICIO QUIROZ PA-C ; [facility] ARIPiprazole 2 MG Oral Tablet 05/12/2022 - 05/27/2022 Provider: PATRICIO QUIROZ PA-C Diagnosis: Depression, unspecified TAKE 1 TABLET BY MOUTH AT BE DTIME NEEDS APPT!! Last Documented On 2 12:42PM By PATRICIO QUIROZ PA-C ; [facility] busPIRone HCl 5 MG Oral Tablet 05/02/2022 - 10/27/2022 Provider: PATRICIO QUIROZ PA-C Diagnosis: Anxiety disorder , unspecified TAKE 1 TABLET BY MOUTH THREE TIMES A DAY Last Documented On 2 2:17PM By PATRICIO QUIROZ PA-C ; [facility] ARIPiprazole 2 MG Oral Tablet 04/14/2022 - 05/12/2022 Provider: PATRICIO QUIROZ PA-C Diagnosis: Depression, unspecified TAKE 1 TABLET BY MOUTH AT BE DTIME needs appt in1 mo Last Documented On 2 8:40AM By PATRICIO QUIROZ PA-C ; [facility] Lexapro 10 MG Oral Tablet 03/28/2022 - 07/07/2022 Prov ider: PATRICIO QUIROZ PA-C Diagnosis: One tablet daily Last Documented On 2 8:42AM By PATRICIO QUIROZ PA-C ; [facility] Effexor XR 37.5 MG Oral Capsule Extended Release 24 Hour 03/28/2022 - 08/08/2022 Provider: PATRICIO QUIROZ PA-C Diagnosis: 1 capsule daily Last Documented On 2 10:41AM By PATRICIO QUIROZ PA-C ; [facility] Abilify 2 MG Oral Tablet 03/20/2022 - 04/14/2022 Provider: PATRICIO QUIROZ PA-C Diagnosis: Depression, unsp ecified One tablet at bed time; generic. Last Documented On 2 9:14AM By PATRICIO QUIROZ PA-C ; [facility] Effexor XR 37.5 MG Oral Capsule Extended Release 24 Hour 03/20/2022 - 08/08/2022 Provider: PATRICIO QUIROZ PA-C Diagnosis: Depression, unsp ecified 1 Capsule every morning x 7 days then stop. Generic. Last Documented On 08/08/2022 10:14AM By DORIS GALE ; [facility] Lexapro 20 MG Oral Tablet 03/20/2022 - 03/28/2022 Provider: PATRICIO QUIROZ PA-C Diagnosis: Depression, unsp ecified One tablet daily; generic. Last Documented On 2 11:05AM By PATRICIO QUIROZ PA-C ; [facility] buPROPion HCl ER (XL) 150 MG Oral Tablet Extended Release 24 Hour 03/10/2022 - 03/20/2022 Provider: PATRICIO QUIROZ PA-C Diagnosis: Adjustment disor leonid with anxiety TAKE 1 TABLET BY MOUTH EVERY DAY Last Documented On 03/20/2022 9:56AM By DORIS GALE ; [facility] Effexor XR 75 MG Oral Capsul e Extended Release 24 Hour 03/06/2022 - 03/28/2022 Provider: PATRICIO BROWNING PA-C Diagnosis: 1 Capsule every morning; increase. Last Documented On 2 11:04AM By PATRICIO QUIROZ PA-C ; [facility] Effexor XR 37.5 MG Oral Capsule Extended Release 24 Hour 02/17/2022 - 03/06/2022 Provider: PATRICIO QUIROZ PA-C Diagnosis: Adjustment disor leonid with anxiety as directed 1 cap qd Last Documented On 2 8:59AM By PATRICIO QUIROZ PA-C ; [facility] Effexor XR 37.5 MG Oral Capsule Extended Release 24 Hour 02/17/2022 - 02/17/2022 Provider: PATRICIO QUIROZ PA-C Diagnosis: Adjustment disor leonid with anxiety as directed 1 cap qd x6 days then increase to 2 a day. Generic. Replaces lexapro. Last Documented On 2 10:51AM By PATRICIO QUIROZ PA-C ; [facility] Escitalopram Oxalate 10 MG Oral Tablet 02/02/2022 - 03/06/2022 Provider: PATRICIO QUIROZ PA-C Diagnosis: Adjustment disor leonid with anxiety TAKE 1 TABLET BY MOUTH EVERY DAY Last Documented On 2 8:59AM By PATRICIO QUIROZ PA-C ; [facility] Escitalopram Oxalate 10 MG Oral Tablet 12/06/2021 - 02/02/2022 Provider: PATRICIO QUIROZ PA-C Diagnosis: Adjustment disor leonid with anxiety TAKE 1 TABLET BY MOUTH EVERY DAY Last Documented On 2 2:27PM By PATRICIO QUIROZ PA-C ; [facility] buPROPion HCl ER (XL) 150 MG Oral Tablet Extended Release 24 Hour 12/05/2021 - 03/10/2022 Provider: PATRICIO QUIROZ PA-C Diagnosis: Adjustment disor leonid with anxiety TAKE 1 TABLET BY MOUTH EVERY DAY Last Documented On 2 12:31PM By PATRICIO QUIROZ PA-C ; [facility] buPROPion HCl ER (XL) 150 MG Oral Tablet Extended Release 24 Hour 11/07/2021 - 12/05/2021 Provider: PATRICIO QUIROZ PA-C Diagnosis: Adjustment disor leonid with anxiety TAKE 1 TABLET BY MOUTH EVERY DAY Last Documented On 2 9:49AM By PATRICIO QUIROZ PA-C ; [facility] Wellbutrin XL 150 MG Oral Tablet Extended Release 24 Hour 10/15/2021 - 11/07/2021 Provider: PATRICIO QUIROZ PA-C Diagnosis: Adjustment disor leonid with anxiety One tablet daily; generic. Last Documented On 1 5:02PM By PATRICIO QUIROZ PA-C ; [facility] Lexapro 10 MG Oral Tablet 10/15/2021 - 12/06/2021 Provider: PATRICIO QUIROZ PA-C Diagnosis: Adjustment disor leonid with anxiety One tablet daily; dosage decrease. Last Documented On 2 8:32AM By PATRICIO QUIROZ PA-C ; [facility] Escitalopram Oxalate 20 MG Oral Tablet 08/30/2021 - 10/15/2021 Provider: REBECA YUSUF PA-C Diagnosis: Anxiety disorder , unspecified TAKE 1 TABLET BY MOUTH EVERY DAY Last Documented On 1 9:53AM By PATRICIO QUIROZ PA-C ; [facility] Escitalopram Oxalate 20 MG Oral Tablet 07/31/2021 - 08/30/2021 Provider: REBECA YUSUF PA-C Diagnosis: Anxiety disorder , unspecified TAKE 1 TABLET BY MOUTH EVERY DAY Last Documented On 1 4:15PM By Rebeca Yusuf PA-C ; [facility] busPIRone HCl 5 MG Oral Tablet 07/15/2021 - 05/02/2022 Provider: REBECA YUSUF PA-C Diagnosis: Anxiety disorder , unspecified TAKE 1 TABLET BY MOUTH THREE TIMES DAILY Last Documented On 2 3:12PM By PATRICIO QUIROZ PA-C ; [facility] Escitalopram Oxalate 20 MG Oral Tablet 07/15/2021 - 07/31/2021 Provider: REBECA YUSUF PA-C Diagnosis: Anxiety disorder , unspecified TAKE 1 TABLET BY MOUTH EVERY DAY Last Documented On 07/31/2021 9:30AM By Sunil GALE ; [facility] busPIRone HCl 5 MG Oral Tablet 07/09/2021 - 07/15/2021 Provider: REBECA YUSUF PA-C Diagnosis: Anxiety disorder , unspecified TAKE 1 TABLET BY MOUTH TWICE A DAY Last Documented On 1 9:40AM By Rebeca Yusuf PA-C ; [facility] Escitalopram Oxalate 20 MG Oral Tablet 07/08/2021 - 07/15/2021 Provider: REBECA YUSUF PA-C Diagnosis: Anxiety disorder , unspecified TAKE 1 TABLET BY MOUTH EVERY DAY Last Documented On 1 9:40AM By Rebeca Yusuf PA-C ; [facility] busPIRone HCl 5 MG Oral Tablet 06/12/2021 - 07/09/2021 Provider: REBECA YUSUF PA-C Diagnosis: Anxiety disorder , unspecified take 1 tablet twice daily Last Documented On 1 8:19AM By Rebeca Yusuf PA-C ; [facility] Escitalopram Oxalate 20 MG Oral Tablet 06/12/2021 - 07/08/2021 Provider: REBECA YUSUF PA-C Diagnosis: Anxiety disorder , unspecified take 1 tablet daily Last Documented On 7:47AM By Rebeca Yusuf PA-C ; [facility] Lexapro 10 MG Oral Tablet 06/04/2021 - 06/12/2021 Provider: REBECA Montiel PA-C Diagnosis: Anxiety disorder , unspecified take 1 tablet daily Last Documented On 2:59PM By Rebeca Yusuf PA-C ; [facility] methylPREDNISolone 4 MG Oral Tablet Therapy Pack 05/13/2021 - 07/15/2021 Provider: REBECA YUSUF PA-C Diagnosis: Dorsalgia, unspecified take as directed on packet Last Documented On 07/15/2021 9:12AM By Tereza GALE ; [facility] Lexapro 10 MG Oral Tablet 05/13/2021 - 06/04/2021 Provider: REBECA Montiel PA-C Diagnosis: Anxiety disorder , unspecified take 1 tablet daily Last Documented On 06/04/2021 8:42AM By Sunil GALE ; [facility] Fluconazole 100 MG Oral Tablet 01/23/2021 - 07/15/2021 Provider: MILLI CHAPA MD Diagnosis: Tinea corporis One tablet daily Last Documented On 07/15/2021 9:13AM By Tereza GALE ; [facility] hydrOXYzine HCl 10 MG Oral Tablet 01/23/2021 - 07/15/2021 Provider: MILLI CHAPA MD Diagnosis: Other pruritus 1 tab up to tid Last Documented On 07/15/2021 9:13AM By Tereza GALE ; [facility] Flonase Allergy Relief 50 MCG/ACT Nasal Suspension 07/29/2019 - 01/22/2021 Provider: MORGAN PAZ [facility] Diagnosis: 2 sprays each nostril once dalily Last Documented On 01/22/2021 8:51AM By Tereza GALE ; [facility] Doxycycline Monohydrate 100 MG Oral Capsule 07/29/2019 - 01/22/2021 Provider: MORGAN WIGGINS PMHNP-[facility] [employer] Diagnosis: 1 CAPSULE TWO TIMES A DAY Last Documented On 01/22/2021 8:51AM By Tereza GALE ; [facility] ZyrTEC Allergy 10 MG Oral Tablet 07/29/2019 - 01/22/2021 Provider: MORGAN THOMPSONANDRÉS HALIMAOlayinka PMHNP-BC [employer] Diagnosis: One tablet daily Last Documented On 01/22/2021 8:51AM By Tereza GALE ; [facility] busPIRone HCl 10MG Oral Tablet 03/07/2019 - 01/22/2021 Provider: PATRICIO QUIROZ PA-C Diagnosis: Adjustment disor leonid with anxiety One tablet twice a day; this is an increase. Last Documented On 01/22/2021 8:51AM By Tereza GALE ; [facility] Lexapro 20MG Oral Tablet 03/07/2019 - 01/22/2021 Provider: PATRICIO QUIROZ PA-C Diagnosis: Adjustment disor leonid with anxiety One tablet daily; this is an increase. Last Documented On 01/22/2021 8:51AM By Tereza GALE ; [facility] busPIRone HCl 5MG Oral Tablet 03/06/2019 - 07/29/2019 Provider: MILLI CHAPA MD Diagnosis: Adjustment disor leonid with anxiety One tablet twice a day Last Documented On 07/29/2019 10:30AM By Sandra GALE ; [facility] Lexapro 10MG Oral Tablet 03/06/2019 - 07/29/2019 Provider: MILLI CHAPA MD Diagnosis: Adjustment disor leonid with anxiety One tablet daily Last Documented On 07/29/2019 10:30AM By Sandra GALE ; [facility] Lexapro 10MG Oral Tablet 10/05/2018 - 03/06/2019 Provider: MORGAN VARGHESEOlayinka PMHNP-BC [employer] Diagnosis: Adjustment disor leonid with anxiety One tablet daily Last Documented On 03/06/2019 9:12PM By LYNDA CHAPA MD ; [facility] BusPIRone HCl 5MG Oral Tablet 10/05/2018 - 03/06/2019 Provider: MORGAN PAZ PMHNP-BC [employer] Diagnosis: Adjustment disor leonid with anxiety One tablet twice a day Last Documented On 03/06/2019 1:31AM By LYNDA CHAPA MD ; [facility] Lexapro 20MG Oral Tablet 09/30/2017 - 03/07/2019 Provider: MILLI CHAPA MD Diagnosis: Adjustment disor leonid with anxiety One tablet daily Last Documented On 03/07/2019 3:02PM By EVY GALE ; [facility] BusPIRone HCl 5MG Oral Tablet 09/30/2017 - 10/05/2018 Provider: MILLI CHAPA MD Diagnosis: Adjustment disor leonid with anxiety ONE TAB BID AND MAY TAKE A T HIRD AT HS IF NEEDED Last Documented On 8 10:07AM By MORGAN PAZ [facility] ; [facility] Mirena (52 MG) 20 MCG/24HR IU IUD 10/31/2010 - 017 Provider: Diagnosis: Last Documented On 09/30/2017 10:11AM By RYLAND GALE ; [facility] Flagyl 500 MG OR TABS 10/28/2010 - 09/30/2017 Provider : PARUL LORENZANA MD Diagnosis: No alcohol while taking! Last Documented On 09/30/2017 10:01AM By RYLAND GALE ; [facility] Flagyl 500 MG OR TABS 09/23/2010 - 10/28/2010 Provider : PARUL LORENZANA MD Diagnosis: No alcohol while taking! Last Documented On 10/28/2010 2:42PM By PARUL LORENZANA MD ; [facility] Sertraline HCl 50 MG OR TABS 09/05/2010 - 09/30/2017 P rovider: PARUL LORENZANA MD Diagnosis: Last Documented On 09/30/2017 10:01AM By RYLAND GALE ; [facility] NIFEdipine 10 MG OR CAPS 06/13/2010 - 09/30/2017 Provi leonid: PARUL LORENZANA MD Diagnosis: i po Q4 hours prn contractions Last Documented On 09/30/2017 10:01AM By RYLAND GALE ; [facility] 19 OR TABS 05/31/2010 - 09/30/2017 Provider: YULIET RUIZ [facility] Diagnosis: Last Documented On 09/30/2017 10:01AM By RYLAND GALE ; [facility] Zithromax Z-Juma 250 MG OR TABS 05/08/2010 - 09/30/2017 Provider: SWETHA BALLARD M.D. Diagnosis: UPPER RESP DIS NEC/NOS 2 TABS TODAY THEN 1 DAILY UNTIL GONE Last Documented On 09/30/2017 10:01AM By RYLAND GALE ; [facility] Zofran 8 MG OR TABS 05/08/2010 - 09/30/2017 Provider: SWETHA BALLARD M.D. Diagnosis: NAUSEA ALONE 1 tab q 8 hrs Last Documented On 09/30/2017 10:01AM By RYLAND GALE ; [facility] Lexapro 10 MG OR TABS 02/04/2010 - 09/30/2017 Provider : PARUL LORENZANA MD Diagnosis: Last Documented On 09/30/2017 10:01AM By RYLAND GALE ; [facility] Flagyl 500 MG OR TABS 12/27/2009 - 09/23/2010 Provider : YULIET RUIZ [facility]- Diagnosis: Last Documented On 09/23/2010 3:50PM By PARUL LORENZANA MD ; [facility] Medications Administered Includes: Administered Medications in patient's [...] 01/22/2024 Last Documented On 4 3:08PM ; [facility] Not exercising erratically 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 Weaning off nicotine 03/24/2023 Last Documented On 3 11:15AM ; [facility] Tobacco use 10/05/2018 Last Documented On 8 10:09AM ; [facility] Caffeine use 09/30/2017 Last Documented On 7 12:35AM ; [facility] Medical History Includes: Medical History in patient's chart Description Last Updated LMP: 01/15/2024 01/22/2024 Last Documented On 4 3:08PM ; [facility] 4 01/22/2021 Last Documented On 1 9:45AM ; [facility] Para 4 01/22/2021 Last Documented On 1 9:45AM ; [facility] TUBAL LIGATION 2013 09/30/2017 Last Documented On 7 12:35AM ; [facility] Family History Includes: Family History in patient's chart Description Last Updated Family history of Cancer Maternal Great Aunt ovarian cancer 08/08/2022 Last Documented On 2 10:49AM ; [facility] Family history of diabetes mellitus Mate rnal Grandmother, Mat Grandfather 08/08/2022 Last Documented On 2 10:49AM ; [facility] Maternal grandmother's history of diabet es mellitus MGM and MGF 08/08/2022 Last Documented On 2 10:49AM ; [facility] Family history unchanged 07/29/2019 Last Documented On 9 10:53AM ; [facility] Fraternal history of asthma 09/30/2017 Last Documented On 7 12:35AM ; [facility] Maternal grandmother's history of family history of cancer BREAST 09/30/2017 Last Documented On 7 12:35AM ; [facility] Paternal history of cholesterol problems 09/30/2017 Last Documented On 7 12:35AM ; [facility] Family history of malignant female breas t neoplasm Maternal Grandmother 10/28/2010 Last Documented On 0 2:43PM ; [facility] Family history of Diabetes 01/01/2010 Last Documented On 0 10:55AM ; [facility] Family medical history of high blood pre ssure 01/01/2010 Last Documented On 0 10:55AM ; [facility] Family medical history of High Cholester ol 01/01/2010 Last Documented On 0 10:55AM ; [facility] Review of Systems Review of Systems not [...] atient Last Documented On 1 9:15AM ; [facility] DTP 2 03/12/1989 Complete (Reported) P atient Last Documented On 1 9:15AM ; [facility] DTP 3 01/13/1991 Complete (Reported) P atient Last Documented On 1 9:15AM ; [facility] DTP 4 08/09/1992 Complete (Reported) P atient Last Documented On 1 9:15AM ; [facility] Hep B (Engerix-B/Recombivax HB) Ped/Adult 3 dose 1 12/07/1997 Complete (Reported) Pa tient Last Documented On 1 9:15AM ; [facility] Hep B (Engerix-B/Recombivax HB) Ped/Adult 3 dose 2 01/11/1998 Complete (Reported) Pa tient Last Documented On 1 9:15AM ; [facility] Influenza (Quadrivalent)36 m o.& older PF 0.5ml (SD) 1 08/23/2014 Complete (Reported) Patie nt Last Documented On 7 9:51AM ; [facility] Influenza (Quadrivalent)36 m o.& older PF 0.5ml (SD) 2 08/16/2015 Complete (Reported) Patie nt Last Documented On 7 9:51AM ; [facility] Influenza (Trivalent) split virus-PF (ID) 1 08/23/2014 Complete (Reported) Patient Last Documented On 1 9:15AM ; [facility] Influenza (Trivalent) split virus-PF (ID) 2 08/16/2015 Complete (Reported) Patient Last Documented On 1 9:15AM ; [facility] Influenza, injectable, MDCK, preservative free, quadrivalent 1 09/16/2019 Left Deltoid Complete (Reported) Pat ient Last Documented On 1 9:15AM ; [facility] MMR 1 03/12/1989 Complete (Reported) P atient Last Documented On 1 9:15AM ; [facility] MMR 2 08/09/1992 Complete (Reported) P atient Last Documented On 1 9:15AM ; [facility] OPV 1 1987 Complete (Reported) P atient Last Documented On 1 9:15AM ; [facility] OPV 2 03/12/1989 Complete (Reported) P atient Last Documented On 1 9:15AM ; [facility] OPV 3 01/13/1991 Complete (Reported) P atient Last Documented On 1 9:15AM ; [facility] OPV 4 08/09/1992 Complete (Reported) P atient Last Documented On 1 9:15AM ; [facility] Tdap (Boostrix) 1 10/21/2012 Complete (Rep orted) Patient Last Documented On 1 9:15AM ; [facility] Allergies Includes: Active, inactive, and resolved Allergies Substance Type Reaction Onset Date Resolved Date Statu s Penicillins Allergy Skin Rashes / Er uption of skin, Hives / Urticaria, Asthma / Allergic asthma, Shortness of Breath / Dyspnea 12/27/2009 Active Last Documented On 4 1:00PM ; [facility] Insurance Includes: Active Insurance Policies Plan Name Member ID Group # Subscriber Relationship Effect john Dates 1 - AETNA [facility] [id number] MEGHAN BRISENO Self Clinical Notes Includes: Signed Clinical Notes starting from 12/12/2022 No Clinical Notes Recorded
--- OUTSIDE RECORDS SUMMARY | 2025-02-13 13:21 | XMS_ITS | Clinical Summary ---
Author Organization [facility] Address [address] [place] [address] Phone Care Team Providers Care Women Specialist Name Role Phone MILLI CHAPA MD Primary Care Provider [phone] Reason for Visit and Chief Complaint * PHONE CALL Problems Includes: Problems addressed during this encounter and other active Problems Current Visit Onset Date Resolved Date Provider Conditio n Status Alcohol Use 02/04/2010 Unknown PARUL LORENZANA MD Resolve d Last Documented On 09/09/2010 2:25PM ; [facility] Note: was Closed. Tobacco Use 02/04/2010 Unknown PARUL LORENZANA MD Resolve d Last Documented On 09/09/2010 2:25PM ; [facility] Note: was Closed. 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 5 years of snorti ng and smoking. Adjustment Disorder with Anxiety 10/06/2017 MILLI CHAPA MD Active Last Documented On 10/06/2017 12:34AM ; [facility] Note: Unchanged Plan of Treatment Pending Tests Order Diagnosis Results Due Ordering [facility] THYROID PANEL (TSH & FREE T4) 10/25/23 PATRICIO Worthy Last Documented On 4 3:52PM ; [facility] Assessments Includes: Assessments from this encounter No [...] 3 11:35AM By PATRICIO QUIROZ PA-C ; [facility] Current Medications (continue as prescribed) Daily Multiple Vitamins Oral Tablet 01/23/2021 Provi leonid: Diagnosis: Last Documented On 01/23/2021 10:38AM By María GALE ; [facility] Past Medications on file Venlafaxine [...] 4 1:29PM By PATRICIO QUIROZ PA-C ; [facility] Medications Administered Includes: Administered [...] 2023 Last Documented On 3 11:31AM ; [facility] Not exercising erratically 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 Weaning off nicotine 03/24/2023 Last Documented On 3 11:31AM ; [facility] Tobacco use 10/05/2018 Last Documented On 3 11:31AM ; [facility] Caffeine use 09/30/2017 Last Documented On 3 11:31AM ; [facility] Medical History Includes: Medical History addressed during this encounter Description Last Updated LMP: 04/14/2023 01/22/2024 Last Documented On 3 11:31AM ; [facility] 4 01/22/2021 Last Documented On 3 11:31AM ; [facility] Para 4 01/22/2021 Last Documented On 3 11:31AM ; [facility] TUBAL LIGATION 201209/30/2017 Last Documented On 3 11:31AM ; [facility] Family History Includes: Family History addressed during this encounter Description Last Updated Family history of Cancer Maternal Great Aunt ovarian cancer 08/08/2022 Last Documented On 3 11:31AM ; [facility] Family history of diabetes mellitus Mate rnal Grandmother, Mat Grandfather 08/08/2022 Last Documented On 3 11:31AM ; [facility] Maternal grandmother's history of diabet es mellitus MGM and MGF 08/08/2022 Last Documented On 3 11:31AM ; [facility] Family history unchanged 07/29/2019 Last Documented On 3 11:31AM ; [facility] Fraternal history of asthma 09/30/2017 Last Documented On 3 11:31AM ; [facility] Maternal grandmother's history of family history of cancer BREAST 09/30/2017 Last Documented On 3 11:31AM ; [facility] Paternal history of cholesterol problems 09/30/2017 Last Documented On 3 11:31AM ; [facility] Family history of malignant female breas t neoplasm Maternal Grandmother 10/28/2010 Last Documented On 3 11:31AM ; [facility] Family history of Diabetes 01/01/2010 Last Documented On 3 11:31AM ; [facility] Family medical history of high blood pre ssure 01/01/2010 Last Documented On 3 11:31AM ; [facility] Family medical history of High Cholester ol 01/01/2010 Last Documented On 3 11:31AM ; [facility] Review of Systems Includes: [...] Active Last Documented On 4 1:00PM ; [facility] Encounters Encounter Provider Location Date Check-In Time Check-Out Time Diagnosis * PHONE CALL PATRICIO QUIROZ PA-C 06/15/2023 11:14AM 11:59PM Insurance Includes: Active Insurance Policies Plan Name Member ID Group # Subscriber Relationship Effect john Dates 1 - AETNA [facility] [id number] MEGHAN BRISENO Self Clinical Notes Includes: Clinical Notes from this encounter * Progress note Date Encounter Last Documented by 06/15/2023 * PHONE CALL Last documented on 06/15/2023; 11:35 AM, PATRICIO QUIROZ PA-C; [facility] Active Problems & Conditions [...] advise pt phone # for return call: [phone] Date/Initials: tg 06/15. 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 Allergies - Penicillins Reaction: , Shortness [...]
== END 2025-02-13 11:45 | disposition home or self-care (01) ==
PROVIDERS: Emergency Provider Registered Nurse
DX: L25.9 Unspecified contact dermatitis, unspecified cause (principal); F17.210 Nicotine dependence, cigarettes, uncomplicated
CPT/HCPCS: 99213; G0463

== ENCOUNTER 2025-07-06 11:55 | Emergency (ER) | payer OTHER, SELFPAY ==
--- NOTE | ~2025-07-06 | XR_ITS ---
EXAMINATION: XR ankle RT min 3V, XR foot RT min 3V DATE: 07/06/2025 12:37 INDICATION: Blunt trauma to the right foot and ankle present with anterior right ankle and midfoot pa in. TECHNIQUE: 1. Anteroposterior, mortise, additional oblique and lateral view of the right ankle were obtained. 2. Dorsoplantar, two oblique and lateral views of the right foot were obtained. COMPARISON: None. FINDINGS: Alignment of the foot and ankle is normal. No fracture or osteochondral lesion. Joint spaces are well maintained. No ankle joint effusion. The soft tissues are unremarkable. IMPRESSION: 1. Negative right foot and ankle radiographs. Reviewed, dictated and finalized at location A. IMPRESSION: 1. Negative right foot and ankle radiographs.
[2025-07-06 12:00] VITALS: BP 130/81; PULSE 82; RESP 18; TEMP 37.1; O2SAT 100
--- OUTSIDE RECORDS SUMMARY | 2025-07-06 12:02 | XMS_ITS | Encounter Summary ---
Author Organization [facility] Address [address] [place] [address] Phone Care Team Providers Care Hydraulic Barker Operator Name Role Phone Ervin Dinh Primary Care Provider [phone] Reason for Visit * Reason Onset Date Comments Appointment 07/05/2025 Leg Injury 07/05/2025 Encounter Details Date Type Department Care Team (Late st Contact Info) Description 07/05/2025 Nurse Triage [facility] [address] [place] [id number] Ervin Dinh, PAC [address] [place] [phone] Appointment; Leg Injury Social History Tobacco Use Types Packs/Day Years Used Date Smoking Tobacco: Every Day Cigarettes 1.5 28.3 Started: 03/06/1997 Passive Smoke Exposure: Current Smokeless Tobacco: Never Alcohol Use Standard Drinks/Week Comments Yes 0 (1 standard drink = 0.6 oz pur e alcohol) rare [facility] Utilities Answer Date Recorded In the past 12 months has [employer] electric, gas, oil, or water company threatened to shut off services in your home? Yes 03/06/2025 Social Connection and Isolation Panel Answer Date Recorded In a typical week, how many times do you talk on the phone with family, friends, or neighbors? Once a week 03/06/2025 How often do you get togethe r with friends or relatives? Patient declined 03/06/2025 How often do you attend quaker or amish serv ices? Never 03/06/2025 Do you belong to any clubs o r organizations such as quaker groups, unions, fraternal or athletic groups, or school groups? No 03/06/2025 How often do you attend meet ings of the clubs or organizations you belong to? Never 03/06/2025 Are you , , di vorced, , never , or living with a partner? 03/06/2025 AUDIT-C Answer Date Recorded Q1: How often do you have a drink containing alc ohol? Monthly or less 03/06/2025 Q2: How many drinks containi ng alcohol do you have on a typical day when you are drinking? Patient declined 03/06/2025 Q3: How often do you have si x or more drinks on one occasion? Never 03/06/2025 Overall Financial Resource Strain (CARDIA) Answe r Date Recorded How hard is it for you to pa y for the very basics like food, housing, medical care, and heating? Very hard 03/06/2025 PHQ-2 Answer Date Recorded Total Score - Questions 1-9 15 02/21 [facility] - Occupational Stress Questionnaire Answer Date Recorded Do you feel stress - tense, restless, nervous, or anxious, or unable to sleep at night because your mind is troubled all the time - these days? Very much 03/06/2025 Exercise Vital Sign Answer Date Recorde d On average, how many days pe r week do you engage in moderate to strenuous exercise (like a brisk walk)? 7 days 03/06/2025 On average, how many minutes do you engage in exercise at this level? 10 min 03/06/2025 Hunger Vital Sign Answer Date Recorded Within the past 12 months, y ou worried that your food would run out before you got the money to buy more. Often true 03/06/20 25 Within the past 12 months, t he food you bought just didn't last and you didn't have money to get more. Often true 03/06/2025 PRAPARE - Transportation Answer Date Re corded In the past 12 months, has l ack of transportation kept you from medical appointments or from getting medications? No 02/21 In the past 12 months, has l ack of transportation kept you from meetings, work, or from getting things needed for daily living? No 03/06/2025 Housing Stability Vital Sign Answer Norman e Recorded In the last 12 months, was t here a time when you were not able to pay the mortgage or rent on time? Yes 03/06/2025 In the past 12 months, how m any times have you moved where you were living? 0 03/06/2025 At any time in the past 12 m [facility], were you homeless or living in a longterm (including now)? No 03/06/2025 Sexually Active Control Partners Comments Yes Male Comments No Sex and Gender Information Value Date Recorded Sex Assigned at Not on file Legal Sex Female 9:48 AM CDT Gender Identity Not on file Sexual Orientation Not on file documented as of this encounter Miscellaneous Notes * Telephone Encounter - Josey Monae RN - 07/05/2025 8:10 AM CDT SITUATION: 40 y.o. with Leg injury BACKGROUND: Patient contacting PCP office. Patient stated at work a wood pallet came down on her Thursday night. ASSESSMENT: Symptom Description / Location: Leg injury Right leg Bruising- top part of the foot to the toe and around each ankle Swelling- around the ankle; calf swelling; toes Top of the foot up near the ankle skin was broken open- about 1 inch. Limping TDAP- 04/2024 Denies Broken Dislocated Spreading redness Pus Gaping skin Numbness Weakness Weak immune system Treatment / Response: ibuprofen with some relief. Pain ratin/10 RECOMMENDATION: Caller agreeable to highest disposition listed: See in Office or Video Visit Today or Tomorrow. Care advice provided per triage guideline. Caller verbalized understanding. Due to office unavailability within disposition, advised for patient to be seen at prompt care or urgent care. Caller agreeable to prompt care/urgent care. Verified allergies, medications, and pharmacy. Verified Assistive Services - Reason for Disposition: Large swelling or bruise (> 2 inches or 5 cm) . Protocols Used: Leg Injury-A-OH See care advice and disposition for Guideline. First positive answer recorded, all responses to prior questions were negative. If symptoms increase, change or if new symptoms develop, call your health care provider or call back. Recommendations were based on caller information and is not a diagnosis. Verified and reviewed all triage information with caller. * Telephone Encounter - Kath Gallo - 07/05/2025 8:09 AM CDT Symptom: Leg Injury Outcome: Transfer to sharepoint consultant queue Reason: Discoloration (purple, blue, white, pale) The caller accepted this outcome. Caller Denied: * Can't stop the bleeding * Bone looks broken or crooked * Severe pain now documented in this encounter Plan of Treatment Upcoming Encounters Date Type Department Care Team (Late st Contact Info) Description 09/06/2025 9:10 AM CDT Lab [facility] [address] [place] [phone] [facility] 09/13/2025 9:00 AM CDT Office Visit [facility] [address] [place] [phone] Ervin Dinh PAC [address] [place] [phone] documented as of this encounter Visit Diagnoses Not on filedocumented in this encounter Additional Health Concerns Assessment Noted Time PHQ-9 Depression Total Score: 15 025 11:00 AM CDT documented as of this encounter Care Teams Hydraulic Barker Operator Relationship Specialty Start Date End Date Ervin Dinh PAC [address] [place] [phone] PCP - General Physician Technology Auditor 03/06/25 documented as of this encounter
--- OUTSIDE RECORDS SUMMARY | 2025-07-06 12:02 | XMS_ITS | Clinical Summary ---
Author Organization [facility] Address [address] [place] [address] Phone Care Team Providers Care Client Representative Name Role Phone FabrizioGarrettkamilla Brennan PAC Primary Care Provider Allergies Active Allergy Reactions Criticality Noted Date Comments Lactose Unknown High 02/21/2025 Penicillins Hives,Itching,Rash,S hortness of Breath,Other (see Comments) High 12/27/2009 Medications venlafaxine (EFFEXOR-XR) 75 MG CAPSULE SR 24 HRIndications: Adjustment disorder with anxiety Take 1 Capsule by mouth daily. 90 Capsule 1 03/06/20 25 Active busPIRone (BUSPAR) 5 MG TabletIndicati ons:Adjustment disorder with anxiety Take 1 Tablet by mouth 3 times daily. 270 Tablet 1 03/06/20 25 Active ARIPiprazole (ABILIFY) 2 MG TabletIndicati ons:Adjustment disorder with anxiety Take 1 Tablet by mouth daily. 90 Tablet 1 03/06/20 25 Active topiramate (TOPAMAX) 25 MG TabletIndicati ons:Class 1 obesity due to excess calories with serious comorbidity and body mass index (BMI) of 32.0 to 32.9 in adult Take 1 Tablet by mouth 2 times daily. 180 Tablet 3 03/06/20 25 Active tirzepatide-we ight management (Zepbound) 7.5 MG/0.5ML Solution Auto-injectorI ndications:Cla ss 1 obesity due to excess calories with serious comorbidity and body mass index (BMI) of 32.0 to 32.9 in adult 7.5 mg by Subcutaneous route once a week. 2 mL 06/09/20 25 Active SUMAtriptan (IMITREX) 50 MG TabletIndicati ons:Chronic migraine w/o aura w/o status migrainosus, not intractable TAKE 1 TABLET BY MOUTH ONCE NEEDED FOR MIGRAINE DIRECTED MAY REPEAT IN 2 HOURS 9 Tablet 06/27/20 25 Active Tirzepatide-We ight Management (Zepbound) 5 MG/0.5ML Solution Auto-injector 5 mg by Subcutaneous route once a week. 2 mL 05/11/20 25 2024 Discontinued(D ose adjustment) SUMAtriptan (IMITREX) 50 MG TabletIndicati ons:Chronic migraine w/o aura w/o status migrainosus, not intractable TAKE 1 TABLET BY MOUTH ONCE NEEDED FOR MIGRAINE DIRECTED MAY REPEAT IN 2 HOURS 9 Tablet 05/29/20 25 2024 Discontinued Active Problems Problem Noted Date Diagnosed Date History of methamphetamine abuse 03/06/2025 Adjustment disorder with anxiety 10/06/2017 Overview (03/06/2025): Note: Unchanged Encounters Date Type Department Care Team Description 07/05/2025 Nurse Triage [facility] [address] [place] [address] Ervin Dinh, PAC Appointment; Leg Injury 06/27/2025 Refill [facility] [place] [address] [place] [address] Ervin Dinh, PAC Medication Refill 06/13/2025 Telephone [facility] [address] [place] [phone] Ana Bishop, TREE PLANTER, TEXTILE MACHINERY SALES REPRESENTATIVE 06/09/2025 MyChart RX Renewal [facility] [place] [address] [place] [address] Ervin Dinh, PAC Medication Renewal Declined 05/30/2025 [facility] [place] [address] [place] [address] Ervin Dinh, PAC Medication Refill (Topiramate 25 mg tablet) 05/29/2025 [facility] [place] [facility] [address] [place] [address] Ervin Dinh, PAC Medication Refill 2025 MyChart RX Renewal [place] [address] [place] [address] Ervin Dinh, PAC Medication Renewal Declined 04/20/2025 [facility] [place] [address] [place] [address] Ervin Dinh, PAC Medication Refill 04/06/2025 Telephone [facility] [address] [place] [address] Ervin Dinh, PAC Medication appeal (Zepbound) 04/05/2025 Telephone [facility] [address] [place] [phone] Ervin Dinh, PAC Medication Management 04/05/2025 Telephone [facility] [address] [place] [phone] Ervin Dinh, PAC Prior Authorization (tirzepatide-weight management (Zepbound) 2.5 MG/0.5ML Solution Auto-injector ) from Last 3 Months Immunizations Immunization Administration Dates Next Due DTP Vaccine 08/09/1992, 1,03/12/1989,1986 Hepatitis B Vaccine, Pediatric/adolescent 01/11/1998,12/07/1997 Influenza Vaccine, MDCK,quad rivalent, pres free 09/16/2019 Influenza, Seasonal, Injecta ble, Undefined 08/16/2015,08/23/2014 MMR Vaccine 08/09/1992,03/12/1989 OPV 08/09/1992, 1,03/12/1989,1986 TDAP Vaccine 2024,10/21/2012 Family History Medical History Relation Name Comments High Cholesterol Father Cancer Maternal Grandmother Asthma Mother Relation Name Status Comments Father Maternal Grandmother Mother Social History Tobacco Use Types Packs/Day Years Used Date Smoking Tobacco: Every Day Cigarettes 1.5 28.3 Started: 03/06/1997 Passive Smoke Exposure: Current Smokeless Tobacco: Never Tobacco Cessation:Ready to Q uit: No; Counseling Given: No Alcohol Use Standard Drinks/Week Comments Yes 0 (1 standard drink = 0.6 oz pur e alcohol) rare [facility] Utilities Answer Date Recorded In the past 12 months has e electric, gas, oil, or water company threatened [...] declined 03/06/2025 How often do you attend yazidi or pentecostalism serv ices? Never 03/06/2025 Do you belong to any clubs o r organizations such as yazidi groups, unions, fraternal or athletic groups, or [...] Total Score - Questions 1-9 15 02/21 [facility] of Occupat ional Health - Occupational Stress [...] any time in the past [address] [facility], were you homeless or living in a intermediate (including now)? No 03/06/2025 Sexually Active Control Partners Comments Yes Male Comments No Sex and Gender Information Value Date Recorded Sex Assigned at Not on file Legal Sex Female 9:48 AM CDT Gender Identity Not on file Sexual Orientation Not on file Last Filed Vital Signs Vital Sign Reading Time Taken Comments Blood Pressure 118/70 03/06/2025 11:01 AM CDT Pulse 76 03/06/2025 11:01 AM CDT Temperature 37.7 C (99.8 F) 03/06/2025 11:01 AM CDT Respiratory Rate 20 03/06/2025 11:01 AM CDT Oxygen Saturation 98% 03/06/2025 11:01 AM CDT Inhaled Oxygen Concentration - - Weight 82.1 kg (181 lb) 03/06/2025 11:01 AM CDT Height 158.8 cm (5' 2.5) 03/06/2025 11:01 AM CD T Body Mass Index 32.58 03/06/2025 11:01 AM CDT Plan of Treatment Upcoming Encounters Date Type Department Care Team (Late st Contact Info) Description 09/06/2025 9:10 AM CDT Lab [facility] [address] [place] [address] [facility] 09/13/2025 9:00 AM CDT Office Visit [facility] [address] [place] [address] Ervin Dinh PAC [address] [place] [address] Health Maintenance Due Date Last Done Comments Hepatitis C Virus (HCV) Screening 1987 Hepatitis B Immunization (3 of 3 - 3-dose series) 03/29/1998 01/11/1998, 12/07/1997 Pneumococcal Immunization Combined (1 of 2 - PCV) 2006 Pap Smear 2008 Human Papillomavirus (HPV) Immunization (1 - 3-dose SCDM series) 2014 Cervical Cancer Screening (CCS) 2017 HPV/Cotest 2017 SARS-COV-2 Immunization ( - season) 2024 Influenza Immunization (#1) 07/24/202508/24, 08/16/2015, 08/23/2014 DTaP/Tdap/Td Immunization (7 - Td or Tdap) 2034 2024, 10/21/2012, 08/09/1992, Additional history exists Respiratory Syncytial Virus (RSV) Immunization (Adult) (1 - 1-dose 75+ series) 2062 Meningococcal Immunization (ACWY) Aged Out No longer eligible based on patient's age to complete this topic Rotavirus Immunization Aged Out No lo nger eligible based on patient's age to complete this topic Insurance [facility] Care Teams Client Representative Relationship Specialty Start Date End Date Ervin Dinh, PAC [address] [place] [phone] PCP - General Physician Environmental Protection Economist 03/06/25
--- OUTSIDE RECORDS SUMMARY | 2025-07-06 12:02 | XMS_ITS | Clinical Summary ---
Author Organization [facility] Address [address] [place] [address] Care Team Providers Care Direct Sales Representative Name Role Phone Antony Jean-Baptiste MD Primary Care Provider [phone] Allergies Active Allergy Reactions Criticality Noted Date [...] on file Legal Sex Female 6:06 PM DRILL HAND Gender Identity Not on file Sexual Orientation Not on file Obstetrics History Last Filed Vital Signs Vital Sign Reading Time Taken Comments Blood Pressure 114/74 01/05/2025 4:45 AM DRILL HAND Pulse 65 01/05/2025 3:25 AM DRILL HAND Temperature 37.1 C (98.8 F) 01/05/2025 12:52 AM DRILL HAND Respiratory Rate 18 01/05/2025 12:52 AM DRILL HAND Oxygen Saturation 95% 01/05/2025 3:25 AM DRILL HAND Inhaled Oxygen Concentration - - Weight 81.6 kg (180 lb) 01/05/2025 12:49 AM DRILL HAND Height 158.8 cm (5' 2.5) 01/05/2025 12:49 AM CS T Body Mass Index 32.4 01/05/2025 12:49 AM DRILL HAND Plan of Treatment Health Maintenance Due Date Last Done Comments Cervical Cancer Screening 1987 Depression Screening 1987 Hepatitis C Screening 1987 Varicella Vaccines (1 of 2 - 13+ 2-dose series) 2000 Regular Well Visit/Exam 18-64 2005 HPV Vaccines (1 - 3-dose SCDM series) 2014 Influenza Vaccine (#1) 2025 9, 08/16/2015, 08/23/2014 DTaP/Tdap/Td Vaccine (7 - Td or Tdap) 2034 2024, 10/21/2012, 08/09/1992, Additional history exists Hepatitis B Screening Completed 01/11/1998, 998 Pneumococcal vaccine <65 Aged Out No longer eligible based on patient's age to complete this topic Insurance [facility] [employer] COMPENSATION GENERIC Care Teams Direct Sales Representative Relationship Specialty Start Date End Date Antony Jean-Baptiste MD [address] [place] [address] PCP - General Family Medicine 10/15/22
--- NOTE | 2025-07-06 12:21 | ED.LOWEXIN ---
HPI - Extremity Injury (Lower) General Chief Complaint: Extremity Injury, Lower Stated Complaint: WC Right foot injury Time Seen by Provider: 07/06/25 12:12 Source: patient and RN notes reviewed Mode of arrival: ambulatory Limitations: no limitations History of Present Illness HPI Narrative: Patient presents today complaining of pain to the dorsum of the right foot extending to the anterior ankle. Three days ago she dropped a pallet on her foot and ankle at work. Denies numbness or tingling. Currently rates her pain 4/10 and has been taking some ibuprofen with some relief. Pain increases with weight-bearing and trying to put a shoe on. Decreases with rest. Related Data Home Medications ?Medication ?Instructions ?Recorded ?Confirmed ?Last Taken ?Type aripiprazole 2 mg tablet mg 07/06/25 Unknown History buspirone 5 mg tablet mg 07/06/25 Unknown History sumatriptan succinate 50 mg tablet mg PO 07/06/25 Unknown History topiramate 25 mg tablet mg 07/06/25 Unknown History venlafaxine 75 mg capsule,extended mg PO 07/06/25 Unknown History release 24 hr Allergies Allergy/AdvReac Type Severity Reaction Status Date / Time Penicillins Allergy Hives Verified 02/13/25 11:20 [facility] Past Medical History Medical History Depression Anxiety Surgical History Surgical History H/O tubal ligation Family History Family History Mother Family history non-contributory Social History Social History Smoking packs per day: 1.5 Smoking cigarettes per day: 30.0 Smoking status: Current every day smoker Tobacco type: cigarettes Alcohol intake: never Substance use: never Gender identity (if verbalized by the patient): Female Spiritual care concerns: No Comments At time of signature, I have reviewed and agree with nursing past medical, surgical, social and family history unless otherwise noted. Please see nursing chart for further information. There is no relevant family history pertinent to the presenting complaint Exam Narrative: GENERAL: Well-appearing, well-nourished, and in no acute distress. HEAD: Normocephalic, atraumatic. EYES: EOMI. No redness or drainage. Conjunctivae normal. ENT: Mucous membranes pink and moist. NECK: Normal AROM. CHEST: No respiratory distress. EXTREMITIES: Right ankle and foot: Tenderness and bruising to the anterior ankle with a large linear abrasion to the anterior ankle measuring approximately 4 cm. Increased pain with flexion and extension of the ankle. No pain with inversion or eversion. Tenderness and ecchymosis to the dorsum of the foot at the midfoot extending proximally. Distal sensation intact. Capillary refill normal. Pedal pulse normal. Full range of motion of all toes. SKIN: Warm, dry, no rash. Capillary refill normal. Normal skin turgor. NEURO: No focal deficits. Alert and oriented x3. Gait steady. PSYCH: Normal affect. No signs of depression or anxiety. Course Course Level of Care: Express Care Visit Vital Signs Vital signs: Vital Signs Temperature 98.8 F 07/06/25 12:00 Pulse Rate 82 07/06/25 12:00 Respiratory Rate 18 07/06/25 12:00 Blood Pressure 130/81 07/06/25 12:00 Pulse Oximetry 100 07/06/25 12:00 Oxygen Delivery Room Air 07/06/25 12:00 Temperature 98.8 F 07/06/25 12:00 Pulse Rate 82 07/06/25 12:00 Respiratory Rate 18 07/06/25 12:00 Blood Pressure 130/81 07/06/25 12:00 Pulse Oximetry 100 07/06/25 12:00 Oxygen Delivery Room Air 07/06/25 12:00 Reviewed MDM - Extremity Injury (Lower) MDM Narrative Medical decision making narrative: 40-year-old female patient presents today after dropping a Pallet on the dorsum of her right foot and anterior ankle 3 days ago. She has been taking [id number] ibuprofen with some relief and currently rates her pain 4/10. Exam shows tenderness to the midfoot that extends proximally to the anterior ankle with some ecchymosis. Neurovascularly intact. X-ray of the ankle and foot are negative. Will iban wrap for comfort. Discussed rest, ice, NSAIDs for contusion. Vital signs stable. Differential Diagnosis Differential diagnosis: Likely ankle fracture and other (Fracture, contusion) Imaging Data Radiologist's impression: ITS Impressions Ankle X-Ray 07/06/25 12:40 IMPRESSION: 1. Negative right foot and ankle radiographs. Foot X-Ray 07/06/25 12:40 IMPRESSION: 1. Negative right foot and ankle radiographs. Critical Care Time Critical Care Time Critical Care Time: No Discharge Plan Discharge Clinical Impression: Contusion of foot, right Qualifiers: Encounter type: initial encounter Qualified Code(s): S90.31XA - Contusion of right foot, initial encounter Contusion of ankle, right Qualifiers: Encounter type: initial encounter Qualified Code(s): S90.01XA - Contusion of right ankle, initial encounter Patient Disposition: Home Condition: Stable Instructions: Contusion in Adults (ED) Additional Instructions: Your x-rays are negative for fracture. Wear the Iban wrap for comfort. Rest. Elevate and ice the ankle and foot. Continue ibuprofen for pain. Follow-up with your employer/workman's compensation/Occupational Medicine regarding restrictions or returning to work. Patient Language: Bahraini Prescriptions: No Action prednisone 10 mg tablet 10 mg PO DIRECTED Qty: 21 0RF Rx Instructions: see taper instructions 6 tabs day 1, 5 tabs day 2, 4 tabs day 3, 3 tabs day 4, 2 tabs day 5, 1 tab day 6 famotidine [Pepcid] 20 mg tablet 20 mg PO DAILY Qty: 10 0RF buspirone 5 mg tablet venlafaxine 75 mg capsule,extended release 24hr PO sumatriptan succinate 50 mg tablet PO topiramate 25 mg tablet aripiprazole 2 mg tablet Follow-up/Referrals: PHYSICIAN NOT ON STAFF,NONSTAFF [Primary Care Provider] - Time of Disposition: 13:15
== END 2025-07-06 13:29 | disposition home or self-care (01) ==
PROVIDERS: Emergency Provider Nurse Practitioner
DX: S90.31XA Contusion of right foot, initial encounter (principal); S90.01XA Contusion of right ankle, initial encounter; W20.8XXA Other cause of strike by thrown, projected or falling object, initial encounter; Y99.0 Civilian activity done for income or pay; F41.9 Anxiety disorder, unspecified; F32.A Depression, unspecified; F17.210 Nicotine dependence, cigarettes, uncomplicated
CPT/HCPCS: 73610; 73630; 99213; G0463